=== PATIENT | female | born 1960 | race Caucasian/White ===

== ENCOUNTER → 2018-03-29 08:17 | Outpatient (CLI) | payer OTHER, SELFPAY ==
[2018-03-29 09:15] LABS: Add Manual Diff / Slide Review NO; Basophils Percent Auto 0.6 % (0-2); Eosinophils Percent Auto 1.9 % (2-4); Hematocrit 40.3 % (36-46); Hemoglobin 13.4 g/dL (12.0-16.0); Lymphocytes Percent Auto 28.1 % (25-40); Mean Corpuscular HGB Conc 33.4 % (30-36); Mean Corpuscular Hemoglobin 30.9 PG (26-34); Mean Corpuscular Volume 92.6 fL (80-100); Monocytes Percent Auto 5.2 % (3-14); Neutrophils Absolute Auto 3800 /uL (3000-5900); Neutrophils Percent Auto 64.2 % (50-75); Platelet Count 193 X10^3/uL (150-400); Red Blood Cell Count 4.35 X10^6/uL (4.0-5.2); Red Cell Distribution Width 12.7 % (11.6-14.8); White Blood Cell Count 5.9 X10^3/uL (4.5-11.0)
[2018-03-29 09:51] LABS: Alanine Aminotransferase 69 IU/L (9-52); Albumin 4.8 g/dL (3.5-5.0); Albumin Globulin Ratio 1.5 (1.0-2.8); Alkaline Phosphatase 73 U/L (38-126); Aspartate Aminotransferase 57 IU/L (14-36); BUN Creatinine Ratio 33.8 (6-22); Bilirubin Total 0.4 mg/dL (0.2-1.3); Blood Urea Nitrogen 27 mg/dL (7-17); Calcium 9.5 mg/dL (8.4-10.2); Carbon Dioxide 26 mmol/L (22-32); Chloride 107 mmol/L (98-107); Cholesterol 239 mg/dL (140-199); Estimated Glomerular Filt Rate > 60.0 mL/min (>60); Globulin 3.2 g/dL (1.7-4.1); Glucose 94 mg/dL (70-100); HDL Cholesterol 75 mg/dL (40-60); HEMOLYSIS < 15 (0-50); LDL Cholesterol Calculated 139 mg/dL (<100); Potassium 4.2 mmol/L (3.4-5.1); Sodium 145 mmol/L (137-145); Triglycerides 123 mg/dL (35-150)
[2018-03-29 10:14] LABS: TSH w/ Reflex to FT4 0.31 uIU/mL (0.47-4.68)
[2018-03-29 10:42] LABS: Free T4, Direct Thyroxine 1.16 ng/dL (0.78-2.19)
== END ==
PROVIDERS: Visit Provider Registered Nurse
DX: E03.9 Hypothyroidism, unspecified (principal); Z00.00 Encounter for general adult medical examination without abnormal findings
CPT/HCPCS: 36415; 80053; 80061; 84439; 84443; 85025

== ENCOUNTER → 2018-05-31 08:07 | Outpatient (CLI) | payer OTHER, SELFPAY ==
[2018-05-31 10:31] LABS: Alanine Aminotransferase 35 IU/L (9-52); Aspartate Aminotransferase 33 IU/L (14-36); Cholesterol 250 mg/dL (140-199); HDL Cholesterol 52 mg/dL (40-60); LDL Cholesterol Calculated 120 mg/dL (<100); Triglycerides 390 mg/dL (35-150)
[2018-05-31 11:08] LABS: Thyroid Stimulating Hormone 0.71 uIU/mL (0.47-4.68)
== END ==
PROVIDERS: Visit Provider Registered Nurse
DX: E78.5 Hyperlipidemia, unspecified (principal); R74.8 Abnormal levels of other serum enzymes; E03.9 Hypothyroidism, unspecified
CPT/HCPCS: 36415; 80061; 84443; 84450; 84460

== ENCOUNTER → 2019-01-31 11:48 | Outpatient (CLI) | payer OTHER, SELFPAY ==
--- NOTE | 2019-01-31 11:51 | DI.MRI.S_ITS ---
PROCEDURE: MR HEAD/BRAIN WO/W CON INDICATIONS: Unilateral facial pain, migraine TECHNIQUE: Noncontrast sagittal T1 spin echo, axial T2 fast spin echo, axial FLAIR, axial gradient echo, axial diffusion and ADC through the brain. Axial/sagittal/coronal 3-D CISS, thin-slice axial T1 spin echo with fat saturation through the skull base. After the administration of contrast, axial and coronal thin-slice T1 spin echo with fat saturation through the skull base, axial T1 spin echo with fat saturation through the brain. COMPARISON: None. FINDINGS: Image quality: Excellent. Trigeminal nerves: Trigeminal nerves and trigeminal nerve divisions follow normal course and abnormal contour. No abnormal mass or abnormal postcontrast enhancement is identified along the course of the trigeminal nerves are trigeminal nerve divisions. Cavernous sinus enhances normally. CSF spaces: Ventricles are normal in size and shape. No extra-axial fluid collections. Basal cisterns are patent. Brain: No intracranial bleeds or mass effects. No abnormal intracranial enhancement. Diffusion weighted images show no acute ischemic insults. Duong-white matter interface is intact. Brainstem is normal. Normal intravascular flow voids are present. Skull and face: Calvarial marrow signal is normal. Orbits appear normal. Sinuses: Sinuses and mastoids appear clear. IMPRESSION: 1. No acute intracranial disease process 2. No abnormal intracranial mass or suspicious postcontrast enhancement. 3. No abnormal internal signal. Dictated by: Uma Guzman MD, PhD on 01/31/2019 at 14:02 Approved by: Uma uGzman MD, PhD on 01/31/2019 at 14:04
--- NOTE | 2019-01-31 12:11 | DI.MRI.S_ITS ---
PROCEDURE: MR CERVICAL SPINE WO/W CON INDICATIONS: Chronic neck pain TECHNIQUE: Noncontrast sagittal T1 spin echo and T2 fast spin echo, sagittal STIR, foraminal oblique sagittal T2 fast spin echo, axial gradient echo or T2 fast spin echo through the cervical spine. After the administration of contrast, axial and sagittal T1 spin echo with fat saturation through the cervical spine. COMPARISON: None. FINDINGS: Image quality: Excellent. Alignment and curvature: There is normal bony alignment. Marrow: Marrow is normal in overall signal, without suspicious enhancement. Spinal cord: Visualized spinal cord has normal size and signal. No cerebellar tonsillar herniation. No abnormal intramedullary enhancement. Paraspinous soft tissues: No paravertebral masses or suspicious enhancement. C2-3: Loss of disc signal. Mild, diffuse disc bulge. No central stenosis. No neural foraminal narrowing. No neural impingement. C3-4: Loss of disc signal. Mild, diffuse disc bulge. Mild narrowing of the central canal. No neural foraminal narrowing. No neural impingement. C4-5: Loss of disc signal. Mild, diffuse disc bulge. Mild narrowing of the central canal. Mild right uncovertebral joint hypertrophy. Mild right neural foraminal narrowing. No neural impingement. C5-6: Loss of disc signal. Mild, diffuse disc bulge. Mild narrowing of the central canal. Moderate right uncovertebral joint hypertrophy. Moderate right neural foraminal narrowing. No neural impingement. C6-7: Loss of disc signal and height. Moderate, diffuse disc bulge. Moderate narrowing of the central canal. Mild right uncovertebral joint hypertrophy. Mild right neural foraminal narrowing. No neural impingement. C7-T1: Loss of disc signal. Mild, diffuse disc bulge. No central stenosis. No neural foraminal narrowing. No neural impingement. IMPRESSION: 1. Multilevel degenerative disc disease. 2. Multilevel uncovertebral arthropathy. 3. Moderate C6-C7 central canal narrowing. Mild C3-C4 and C4-C5 central canal narrowing. 4. Moderate right C5-C6 neural foraminal narrowing. Mild right C4-C5 and C6-C7 neural foraminal narrowing. 5. No neural impingement. 6. No suspicious postcontrast enhancement. Dictated by: Uma Guzman MD, PhD on 01/31/2019 at 13:35 Approved by: Uma Guzman MD, PhD on 01/31/2019 at 13:48
== END ==
PROVIDERS: PCP Registered Nurse; Visit Provider Registered Nurse
DX: M50.31 Other cervical disc degeneration, high cervical region (principal); M50.321 Other cervical disc degeneration at C4-C5 level; M50.322 Other cervical disc degeneration at C5-C6 level; M50.323 Other cervical disc degeneration at C6-C7 level; M48.02 Spinal stenosis, cervical region; M47.812 Spondylosis without myelopathy or radiculopathy, cervical region; G43.909 Migraine, unspecified, not intractable, without status migrainosus; G89.29 Other chronic pain
CPT/HCPCS: 70553; 72156; A9579

== ENCOUNTER → 2019-05-06 11:12 | Outpatient (CLI) | payer OTHER, SELFPAY | PROVIDERS: PCP Registered Nurse | DX: Z23 Encounter for immunization (principal) | CPT/HCPCS: 90471; 90686 ==

== ENCOUNTER 2019-05-14 19:47 | Emergency (ER) | payer OTHER, SELFPAY ==
[2019-05-14 19:50] VITALS: BP 144/89; PULSE 80; RESP 17; TEMP 36.6; O2SAT 98; BMI 30.5
--- NOTE | 2019-05-14 20:04 | DI.CT.S_ITS ---
PROCEDURE: CT KIDNEY URETER BLADDER (KUB) INDICATIONS: L flank pain TECHNIQUE: Noncontrast 5 mm thick sections acquired from the diaphragms to the symphysis. 5 mm thick coronal and sagittal reformats were then performed. For radiation dose reduction, the following was used: automated exposure control, adjustment of mA and/or kV according to patient size. COMPARISON: [facility], CT, KIDNEY/ URETER/BLADDER, 03/17/2009, 7:46. [facility], CT, KIDNEY/ URETER/BLADDER, 02/22/2008, 12:16. FINDINGS: Image quality: Excellent. Lung bases: Lung bases are clear. Heart size is normal. Urinary system: Both kidneys are normal in size. There are bilateral small nonobstructive kidney stones ranging in size from 1 mm to 3 mm. There is, however, a new finding of left-sided [id number] hydronephrosis and mild left hydroureter but without perinephric fat stranding. Both ureters appear noninflamed throughout their expected courses but the far distal left ureter there is a 3 mm calculus impacted at the ureteropelvic junction. Bladder wall thickness is normal; no calcified bladder stones. Other solid organs: Liver is normal in size. Gallbladder appears previously resected. Pancreas is normal in contours. Spleen is normal in size. No adrenal nodules. Peritoneum and bowel: Unenhanced bowel loops demonstrate normal wall thickness and caliber. No free fluid or air. Nodes and vessels: No retroperitoneal or mesenteric adenopathy by size criteria. Aorta and inferior vena cava are normal in caliber. Abdominal wall: No ventral hernias. Pelvis: No free pelvic fluid. No inguinal hernias or adenopathy. Bones: No suspicious bony lesions. No vertebral body compression fractures. IMPRESSION: Multiple small but nonobstructive renal collecting system calculi are present but there is a new finding of mild to moderate left-sided hydronephrosis and mild left hydroureter to a 3 mm impacted far distal left ureteral stone at the ureterovesicular junction. Dictated by: Ulises Alvarez M.D. on 05/14/2019 at 20:37 Approved by: Ulises Alvarez M.D. on 05/14/2019 at 20:39
[2019-05-14] MEDS: SODIUM CHLORIDE 0.9% 1,000 ML 1000 ML IV (20:19)
[2019-05-14] MEDS: KETOROLAC 60 MG/2 ML VIAL 15 MG IV (20:19)
[2019-05-14] MEDS: ONDANSETRON 4 MG/2 ML INJ IV (20:19)
[2019-05-14 20:21] LABS: Add Manual Diff / Slide Review NO; Basophils Absolute Auto 0 /uL (0-100); Basophils Percent Auto 0.5 % (0-2); Eosinophils Absolute Auto 300 /uL (0-450); Eosinophils Percent Auto 3.3 % (2-4); Hematocrit 38.8 % (36-46); Hemoglobin 13.3 g/dL (12.0-16.0); Lymphocytes Absolute Auto 2400 /uL (1100-4500); Lymphocytes Percent Auto 31.3 % (25-40); Mean Corpuscular HGB Conc 34.4 % (30-36); Mean Corpuscular Hemoglobin 31.5 PG (26-34); Mean Corpuscular Volume 91.6 fL (80-100); Monocytes Absolute Auto 400 /uL (0-900); Monocytes Percent Auto 5.7 % (3-14); Neutrophils Absolute Auto 4600 /uL (1500-7000); Neutrophils Percent Auto 59.2 % (50-75); Platelet Count 219 X10^3/uL (150-400); Red Blood Cell Count 4.23 X10^6/uL (4.0-5.2); Red Cell Distribution Width 13.3 % (11.6-14.8); White Blood Cell Count 7.7 X10^3/uL (4.5-11.0)
[2019-05-14 20:25] LABS: BUN Creatinine Ratio 31.3 (6-22); Blood Urea Nitrogen 25 mg/dL (7-17); Calcium 10.3 mg/dL (8.4-10.2); Carbon Dioxide 22 mmol/L (22-32); Chloride 108 mmol/L (98-107); Estimated Glomerular Filt Rate > 60.0 mL/min (>60); Glucose 103 mg/dL (70-100); HEMOLYSIS < 15 (0-50); Potassium 3.6 mmol/L (3.4-5.1); Sodium 140 mmol/L (137-145)
--- NOTE | 2019-05-14 20:29 | ED_ITS ---
HPI - Female Genitourinary General Chief complaint: Urogenital-Female Stated complaint: severe back pain Time Seen by Provider: 05/14/19 20:03 Source: patient Mode of arrival: Wheelchair Limitations: no limitations History of Present Illness HPI Narrative: 58-year-old female former smoker with history of migraines p resents with significant other and a chief complaint of a sudden onset left flank pain with radiation into her groin. She denies provocation or palliation. She admits to some urinary discomfort but little tells. She has had no fever or chills. She denies any chest pain or shortness of breath. She denies any history of the same. She has a strong family history of kidney stones MD Complaint: other Onset (ago): hour(s) Location: LLQ Female Urogenital Radiation: L Flank Severity: severe Severity scale (1-10): 10 Quality: Sharp and Stabbing Duration: intermittent Relieving factors: none Exacerbating factors: none Urinary symptoms: Difficulty Urinating Patient : No Associated symptoms: nausea/vomiting Related Data Home Medications Medication Instructions Recorded Confirmed Fish oil PO 11/07/18 01/30/19 antiarthritic combination no.2 900 mg PO tab 11/07/18 01/30/19 mg tablet ascorbic acid (vitamin C) 500 mg mg PO cap 11/07/18 01/30/19 capsule calcium carbonate 500 mg calcium 500 mg PO TID tab 11/07/18 01/30/19 (1,250 mg) tablet turmeric root extract 500 mg 1,000 mg PO DAILY 11/07/18 01/30/19 capsule Previous Rx's Medication Instructions Recorded clonazepam 0.5 mg tablet 0.5 mg PO TID PRN #60 tab 03/08/18 estradiol 1 gram VAG QWEEK #42.5 gram 04/10/18 fluoxetine 40 mg capsule 40 mg PO DAILY #90 cap 05/23/18 topiramate 100 mg tablet 200 mg PO Q DAY #60 tab 08/03/18 zolpidem 10 mg tablet 10 mg PO BEDTIME PRN #30 tab 08/14/18 levothyroxine 88 mcg tablet 88 mcg PO DAILY #30 tab 10/02/18 estradiol 0.5 mg tablet 0.25 mg PO QDAY #90 tab 01/03/19 nadolol 40 mg tablet 40 mg PO Q DAY #90 tab 01/03/19 phentermine 37.5 mg tablet 37.5 mg PO DAILY #30 tab 01/24/19 ondansetron 4 mg disintegrating 4 mg PO Q6-8H PRN #20 tab 01/30/19 tablet hydrocodone-acetaminophen 1 tab PO Q4-6H PRN #10 tab 05/14/19 ketorolac 10 mg PO Q6H PRN #14 tab 05/14/19 ondansetron 4 mg PO TID-QID PRN #10 tab 05/14/19 tamsulosin [Flomax] 0.4 mg PO DAILY #10 cap 05/14/19 Allergies Allergy/AdvReac Type Severity Reaction Status Date / Time No Known Drug Allergies Allergy Verified 05/14/19 19:57 Review of Systems Constitutional Constitutional: Denies chills, Denies fatigue, Denies fever(s), Denies frequent falls, Denies lethargy and Denies weakness Eyes Eyes: Denies change in vision, Denies eye discharge, Denies irritation and Denies loss of vision ENT Ears, Nose, Mouth, and Throat: Denies change in voice, Denies dizziness, Denies neck pain, Denies sore throat and Denies throat swelling Cardiovascular Cardiovascular: Denies chest pain, Denies irregular heart rhythm, Denies lightheadedness, Denies palpitations, Denies dyspnea, Denies dyspnea on exertion and Denies orthopnea Respiratory Respiratory: Denies cough, Denies dyspnea, Denies dyspnea on exertion and Denies wheezing Gastrointestinal Gastrointestinal: Denies abdominal pain, Denies change in bowel habits, Denies diarrhea, Denies nausea and Denies vomiting Genitourinary Genitourinary: Denies hematuria, Reports flank pain, Denies urinary incontinence and Denies urinary urgency Musculoskeletal Musculoskeletal: Denies back pain, Denies muscle weakness, Denies neck pain, Denies numbness and Denies tingling Integumentary/Breasts Skin/Breast: Denies pruritus, Denies erythema, Denies rash and Denies wounds Neurologic Neurologic: Denies behavioral changes, Denies confusion, Denies dizziness, Denies frequent falls, Denies loss of vision, Denies numbness, Denies tingling and Denies weakness Psychiatric Psychiatric: Denies anxiety, Denies behavioral changes, Denies confusion, Denies depression, Denies homicidal ideation and Denies suicidal ideation Endocrine Endocrine: Denies fatigue, Denies flushing and Denies palpitations Hematologic/Lymphatic Hematologic/Lymphatic: Denies easy bruising Allergic/Immunologic Allergic/Immunologic: Denies urticaria, Denies throat swelling and Denies wheezing Patient History Medical History Breathing-related sleep disorder (Chronic) Chronic headaches (Chronic) Excessive daytime sleepiness (Chronic) Insomnia (Chronic) Snoring (Chronic) Surgical History History of bilateral salpingo-oophorectomy (BSO) (Resolved 1995) Status post hysterectomy (Resolved) Family History Brother Melanoma Father Hypertension Mother Melanoma Stroke Family/Other Breast cancer Other Colorectal cancer alcohol intake frequency: holidays/special occasions only Substance Use Type: does not use Exam Narrative Exam Narrative: GENERAL: [58] year old patient appears stated age. Well-no urished, well-developed patient, in significant distress, clearly very uncomfortable, laying on her side, rubbing her flank and holding an emesis bag HEAD: Atraumatic. Normocephalic. EYES: Pupils equal round and reactive. Extraocular motions intact. No scleral icterus. No injection or drainage. ENT: Nose without bleeding, purulent drainage. Throat without erythema, tonsillar hypertrophy or exudate. Airway patent. NECK: Trachea midline. Non tender CARDIOVASCULAR: Regular rate and rhythm without murmurs, gallops, or rubs. RESPIRATORY: Clear to auscultation. Breath sounds equal bilaterally. No wheezes, rales, or rhonchi. GASTROINTESTINAL: Abdomen soft, non-tender, nondistended. EXTREMITIES: No edema or joint tenderness. BACK: Nontender without deformity or crepitance. No flank tenderness. NEURO: AOx3. SKIN: No rash or erythema of visible areas Initial Vital Signs Initial Vital Signs: Vital Signs Temperature 97.8 F 05/14/19 19:50 Pulse Rate 80 05/14/19 19:50 Respiratory Rate 17 05/14/19 19:50 Blood Pressure 144/89 H 05/14/19 19:50 Pulse Oximetry 98 05/14/19 19:50 Course Orders Ordered: ED Orders 05/14/19 20:00 Basic Metabolic Panel Stat Complete Blood Count AUTO DIFF Stat 05/14/19 20:04 CT kidney ureter bladder (KUB) Stat Discontinued Medications Hydrocodone Bitart/Acetaminophen (Vicodin Prepack) 1 bottle MISC SEEINSTR ONE Stop: 05/14/19 21:15 Last Admin: 05/14/19 21:29 Dose: 1 bottle Documented by: RASHAD Sodium Chloride (Normal Saline 0.9%) 1,000 mls @ 1,000 mls/hr IV BOLUS ONE Stop: 05/14/19 21:03 Last Infusion: 05/14/19 21:46 Dose: 0 mls/hr Documented by: Admin: 05/14/19 20:19 Dose: 1,000 mls/hr Documented by: RASHAD Ketorolac Tromethamine (Toradol) 15 mg IV NOW ONE Stop: 05/14/19 20:05 Last Admin: 05/14/19 20:19 Dose: 15 mg Documented by: RASHAD Ondansetron HCl (Zofran) 4 mg IV Q4HR PRN PRN Reason: Nausea And Vomiting Last Admin: 05/14/19 20:19 Dose: 4 mg Documented by: RASHAD Ondansetron HCl (Zofran Odt Prepack) 1 bottle MISC SEEINSTR ONE Stop: 05/14/19 21:15 Last Admin: 05/14/19 21:29 Dose: 1 bottle Documented by: RASHAD Vital Signs Vital signs: Vital Signs - 8 hr 05/14/19 19:50 05/14/19 21:27 Temperature 97.8 F Pulse Rate 80 72 Respiratory Rate 17 14 Blood Pressure 144/89 H Blood Pressure [Left Arm] 119/60 Pulse Oximetry 98 99 MDM - Female Genitourinary Lab Data Result diagrams: 05/14/19 20:00 05/14/19 20:00 Labs: Lab Results 05/14/19 05/14/19 Range/Units 20:00 20:00 WBC 7.7 (4.5-11.0) X10^3/uL RBC 4.23 (4.0-5.2) X10^6/uL Hgb 13.3 (12.0-16.0) g/dL Hct 38.8 (36-46) % MCV 91.6 (80-100) fL MCH 31.5 (26-34) PG MCHC 34.4 (30-36) % RDW 13.3 (11.6-14.8) % Plt Count 219 (150-400) X10^3/uL Neut % (Auto) 59.2 (50-75) % Lymph % (Auto) 31.3 (25-40) % [place] % (Auto) 5.7 (3-14) % Eos % (Auto) 3.3 (2-4) % Baso % (Auto) 0.5 (0-2) % Neut # (Auto) 4600 (5165-1066) /uL Lymph # (Auto) 2400 (4375-5030) /uL [place] # (Auto) 400 (0-900) /uL Eos # (Auto) 300 (0-450) /uL Baso # (Auto) 0 (0-100) /uL Sodium 140 (137-145) mmol/L Potassium 3.6 (3.4-5.1) mmol/L Chloride 108 H (98-107) mmol/L Carbon Dioxide 22 (22-32) mmol/L BUN 25 H (7-17) mg/dL Creatinine 0.80 (0.52-1.04) mg/dL Estimated GFR > 60.0 (>60) mL/min BUN/Creatinine Ratio 31.3 H (6-22) Glucose 103 H (70-100) mg/dL Calcium 10.3 H (8.4-10.2) mg/dL Imaging Data CT scan - abdomen: Radiologist's impression: [place] [address] CT Scan Report Signed Patient: Tammi Cheema R#: [id number] : 2Acct:[id number] Age/Sex: 58 / FDate of Service: 05/14/19 Loc: ED Accession Number: [id number] Procedure: CT kidney ureter bladder (KUB) Ordering Provider: Shadi Han D.O. PROCEDURE: CT KIDNEY URETER BLADDER (KUB) INDICATIONS: L flank pain TECHNIQUE: Noncontrast 5 mm thick sections acquired from the diaphragms to the symphysis. 5 mm thick coronal and sagittal reformats were then performed. For radiation dose reduction, the following was used: automated exposure control, adjustment of mA and/or kV according to patient size. COMPARISON: [facility], CT, KIDNEY/ URETER/BLADDER, 03/17/2009, 7:46. [facility], CT, KIDNEY/ URETER/BLADDER, 02/22/2008, 12:16. FINDINGS: Image quality: Excellent. Lung bases: Lung bases are clear. Heart size is normal. Urinary system: Both kidneys are normal in size. There are bilateral small nonobstructive kidney stones ranging in size from 1 mm to 3 mm. There is, however, a new finding of left-sided [id number] hydronephrosis and mild left hydroureter but without perinephric fat stranding. Both ureters appear noninflamed throughout their expected courses but the far distal left ureter there is a 3 mm calculus imp acted at the ureteropelvic junction. Bladder wall thickness is normal; no calcified bladder stones. Other solid organs: Liver is normal in size. Gallbladder appears previously resected. Pancreas is normal in contours. Spleen is normal in size. No adrenal nodules. Peritoneum and bowel: Unenhanced bowel loops demonstrate normal wall thickness and caliber. No free fluid or air. Nodes and vessels: No retroperitoneal or mesenteric adenopathy by size criteria. Aorta and inferior vena cava are normal in caliber. Abdominal wall: No ventral hernias. Pelvis: No free pelvic fluid. No inguinal hernias or adenopathy. Bones: No suspicious bony lesions. No vertebral body compression fractures. IMPRESSION: Multiple small but nonobstructive renal collecting system calculi are present but there is a new finding of mild to moderate left-sided hydronephrosis and mild left hydroureter to a 3 mm impacted far distal left ureteral stone at the ureterovesicular junction. Dictated by: Ulises Alvarez M.D. on 05/14/2019 at 20:37 Approved by: Ulises Alvarez M.D. on 05/14/2019 at 20:39 Discharge Plan Departure Patient Disposition: Home Clinical Impression: Ureterolithiasis Discharge Date/Time: 05/14/19 21:47 Instructions: DI for Kidney Stones Activity Restrictions/Additional Instructions: *You have been diagnosed with [ Left sided kidney stone ] *What to do: *Take medications as directed *Follow up with your primary care provider in 2-3 days, call for an appointment. Let them know you were seen in the Emergency Department and that we ask that you be seen in follow up *Return to ER if you should have any new, worsening or concerning symptoms, such as [fever, shaking chills, persistent vomiting or other bothersome symptoms ] Prescriptions: New tamsulosin [Flomax] 0.4 mg capsule 0.4 mg PO DAILY Qty: 10 RF: 0 hydrocodone-acetaminophen 5-325 mg tablet 1 tab PO Q4-6H PRN (Reason: pain) Qty: 10 RF: 0 ketorolac 10 mg tablet 10 mg PO Q6H PRN (Reason: pain) Qty: 14 RF: 0 ondansetron 4 mg tablet,disintegrating 4 mg PO TID-QID PRN (Reason: nausea and vomiting) Qty: 10 RF: 0 No Action topiramate [Topamax] 100 mg tablet 200 mg PO Q DAY Qty: 60 RF: 11 levothyroxine 88 mcg tablet 88 mcg PO DAILY Qty: 30 RF: 3 nadolol 40 mg tablet 40 mg PO Q DAY Qty: 90 RF: 3 estradiol 0.5 mg tablet 0.25 mg PO QDAY Qty: 90 RF: 3 phentermine 37.5 mg tablet 37.5 mg PO DAILY Qty: 30 RF: 3 fluoxetine 40 mg capsule 40 mg PO DAILY Qty: 90 RF: 3 zolpidem 10 mg tablet 10 mg PO BEDTIME PRN (Reason: insomnia) Qty: 30 RF: 0 clonazepam 0.5 mg tablet 0.5 mg PO TID PRN (Reason: anxiety) Qty: 60 RF: 1 estradiol [Estrace] 0.01 % (0.1 mg/gram) cream 1 gram VAG QWEEK Qty: 42.5 RF: 3 Fish oil PO RF: 0 calcium carbonate [Calcium 500] 500 mg calcium (1,250 mg) tablet 500 mg PO TID RF: 0 glucosamine-chondroitin 900 mg tablet PO RF: 0 ascorbic acid (vitamin C) 500 mg capsule PO RF: 0 turmeric root extract 500 mg capsule 1,000 mg PO DAILY RF: 0 ondansetron 4 mg tablet,disintegrating 4 mg PO Q6-8H PRN (Reason: nausea and vomiting) Qty: 20 RF: 0 Referrals: Anne Marie Crow MD [Non-Staff] - Clau Sinha ARNP [Primary Care Provider] -
[2019-05-14 21:27] VITALS: BP 119/60; PULSE 72; RESP 14; O2SAT 99
[2019-05-14] MEDS: ONDANSETRON 4 MG ODT PREPACK 1 BOTTLE MISC (21:29)
[2019-05-14] MEDS: HYDROCODONE/ACET 5/325 PREPACK 1 BOTTLE MISC (21:29)
== END 2019-05-14 21:47 | disposition home or self-care (01) ==
PROVIDERS: Nurse Practitioner Family; Emergency Provider Emergency Medicine; Family Provider Registered Nurse; PCP Registered Nurse
DX: N20.2 Calculus of kidney with calculus of ureter (principal)
CPT/HCPCS: 36415; 74176; 80048; 82365; 85025; 96374; 96375; 99283; 99284; J1885; J2405

== ENCOUNTER → 2019-07-14 12:35 | Outpatient (CLI) | payer OTHER, SELFPAY ==
[2019-07-14 13:41] LABS: Influenza A - CEPHEID Flu A NEGATIVE (NEGATIVE); Influenza B - CEPHEID Flu B NEGATIVE (NEGATIVE)
== END ==
PROVIDERS: Family Provider Registered Nurse; PCP Registered Nurse; Visit Provider Physician Assistant
DX: J02.9 Acute pharyngitis, unspecified (principal); R50.9 Fever, unspecified; R52 Pain, unspecified
CPT/HCPCS: 87070; 87502

== ENCOUNTER 2019-07-14 13:08 | Emergency (ER) | payer OTHER, SELFPAY ==
[2019-07-14 13:25] VITALS: BP 129/77; PULSE 86; RESP 15; TEMP 37.2; O2SAT 99; BMI 31.6
[2019-07-14] MEDS: ONDANSETRON 4 MG ODT SL (14:33)
[2019-07-14] MEDS: DEXAMETHASONE 10 MG/ML VIAL PO (14:33)
[2019-07-14] MEDS: KETOROLAC 60 MG/2 ML VIAL 30 MG IM (14:33)
[2019-07-14 15:09] LABS: Monotest Negative (Negative)
--- NOTE | 2019-07-14 15:53 | ED.URI ---
HPI - URI/Sore Throat <RAMILA Boggs - Last Filed: 07/14/19 19:59> General Chief Complaint: Upper Respiratory Symptoms Stated Complaint: sore throat ear left ear hurting and headach Time Seen by Provider: 07/14/19 14:04 Source: patient Mode of arrival: Ambulatory Limitations: no limitations History of Present Illness HPI Narrative: This is a 58-year-old female, former smoker, who presents to ED with significant other with chief complain of sore throat with swelling, ear pain, headache, cervical adenopathy, chills and sweats for 2 days. She reports sore throat started 3 days ago when she woke up and it has been progressively worse and today the pain is severe and rates out of 50/10. Patient states she attempted to swallow pills and felt like she was choking and reports difficulty swallowing due to discomfort. However, patient states she has been hydrating well with water without difficulty. Patient also reports some diarrhea. Patient was seen at walk-in clinic this morning and had negative flu and POC strep throat swabs. Throat culture is pending at this time. Patient denies known exposure to ill contact. Related Data Home Medications Medication Instructions Recorded Confirmed Fish oil PO 11/07/18 07/14/19 antiarthritic combination no.2 900 mg PO tab 11/07/18 07/14/19 mg tablet ascorbic acid (vitamin C) 500 mg mg PO cap 11/07/18 07/14/19 capsule calcium carbonate 500 mg calcium 500 mg PO TID tab 11/07/18 07/14/19 (1,250 mg) tablet turmeric root extract 500 mg 1,000 mg PO DAILY 11/07/18 07/14/19 capsule Previous Rx's Medication Instructions Recorded clonazepam 0.5 mg tablet 0.5 mg PO TID PRN #60 tab 03/08/18 estradiol 1 gram VAG QWEEK #42.5 gram 04/10/18 topiramate 100 mg tablet 200 mg PO Q DAY #60 tab 08/03/18 zolpidem 10 mg tablet 10 mg PO BEDTIME PRN #30 tab 08/14/18 levothyroxine 88 mcg tablet 88 mcg PO DAILY #30 tab 10/02/18 estradiol 0.5 mg tablet 0.25 mg PO QDAY #90 tab 01/03/19 nadolol 40 mg tablet 40 mg PO Q DAY #90 tab 01/03/19 phentermine 37.5 mg tablet 37.5 mg PO DAILY #30 tab 01/24/19 ondansetron 4 mg disintegrating 4 mg PO TID-QID PRN #10 tab 05/17/19 tablet tamsulosin 0.4 mg capsule 0.4 mg PO DAILY #10 cap 05/17/19 fluoxetine 40 mg capsule 40 mg PO DAILY #90 cap 05/28/19 hydrocodone 5 mg-acetaminophen 325 1 tab PO Q4-6H PRN #10 tab 06/05/19 mg tablet ketorolac 10 mg tablet 10 mg PO Q6H PRN #14 tab 06/05/19 tramadol 50 mg PO BID PRN #7 tab 07/14/19 Allergies Allergy/AdvReac Type Severity Reaction Status Date / Time No Known Drug Allergies Allergy Verified 07/14/19 13:25 Review of Systems <RAMILA Boggs - Last Filed: 07/14/19 19:59> Review of Systems Narrative: General: Reports fever, chills, fatigue, malaise, sweats. HEENT: Denies sinus pain, (+) ear pain, (+) sore throat, (+) difficulty swallowing, dizziness. Respiratory: Reports dyspnea, (-) cough, wheezing, hemoptysis, sputum. Cardiovascular: Denies chest pain, palpitations, orthopnea, edema. Gastrointestinal: Denies nausea, vomiting, abdominal pain, (+) diarrhea, constipation, melena. : Denies dysuria, frequency, incontinence, hematuria, urinary retention. Musculoskeletal: Denies weakness, joint pain or bony pain. Skin: Denies rash, skin lesions, or other. Neurologic: Denies weakness, headache, numbness, change in speech, confusion, seizures, incoordination. Psychiatric: No concerning psychosocial issues. 12-point review of systems is negative except for those stated above. Patient History <RAMILA Boggs - Last Filed: 07/14/19 19:59> Medical History Breathing-related sleep disorder (Chronic) Chronic headaches (Chronic) Excessive daytime sleepiness (Chronic) Insomnia (Chronic) Snoring (Chronic) Surgical History History of bilateral salpingo-oophorectomy (BSO) (Resolved 1995) Status post hysterectomy (Resolved) Family History Brother Melanoma Father Hypertension Mother Melanoma Stroke Family/Other Breast cancer Other Colorectal cancer Social History Smoking Status: Former smoker alcohol intake: never substance use type: does not use Smoking Status: Former smoker alcohol intake frequency: holidays/special occasions only Substance Use Type: does not use Exam <RAMILA Boggs - Last Filed: 07/14/19 19:59> Narrative Exam Narrative: GEN: Alert, oriented x 3, well nourished and in moderate distress. Head: Normal cephalic, atraumatic. No scalp or temporal tenderness, palpable mass or rash. EYES: Pupils are equal, round, and reactive to light and accommodation. Extraocular muscles are intact bilaterally. There is no subconjunctival hemorrhage, exudate and sclera non-icteric. ENT: Bilateral auditory canals and tympanic membranes clear. Hearing grossly intact. Nose without bleeding, purulent discharge or deviation but congested and erythematous turbinates. Facial sinuses nontender to palpate. Mucous membrane moist, no mucosal lesion. Throat with erythema but no tonsillar hypertrophy or exudate. Uvula in midline, airway patent. Copious amount of foamy postnasal drips noted. No muffling voice. Neck: Trachea in midline. No JVD, tender to palpate anterior cervical lymphadenopathy. No masses or thyroid megaly. Supple, non-tender and no meningeal signs. CARDIAC: Normal regular rate and rhythm without murmurs, gallops, or rubs. No chest wall tenderness. No peripheral edema, cyanosis or pallor. Capillary refill is less than 2 seconds. RESPIRATORY: Lungs are clear to auscultate bilaterally. No cough, wheezes, rales, or rhonchi. No stridor, respiratory distress, increase work of breathing, or accessary muscle used. ABD: Abdomen soft, nontender and non-distended. No guarding or rebound tenderness to palpate. Bowel sounds are normal in all 4 quadrants. There is no palpable masses or organomegaly. EXT: Full painless ROM of all extremities with no loss of sensation, strength, effusion or edema. SKIN: Warm, dry, normal color for patient. No erythema, lesions or rash over visible areas. BACK: Nontender without deformity or crepitance. No flank tenderness. NEUROLOGICAL: Alert and oriented to place, time and person. Sensation and motor function intact bilaterally. No facial droops, dysphasia. PSYCHIATRIC: Good judgement and reason, without hallucinations, abnormal affect or abnormal behaviors during the examination. Initial Vital Signs Initial Vital Signs: Vital Signs Temperature 98.9 F 07/14/19 13:25 Pulse Rate 86 07/14/19 13:25 Respiratory Rate 15 07/14/19 13:25 Blood Pressure 129/77 07/14/19 13:25 Pulse Oximetry 99 07/14/19 13:25 <Rachel Hernandez DO - Last Filed: 07/15/19 08:21> Initial Vital Signs Initial Vital Signs: Vital Signs Temperature 98.9 F 07/14/19 13:25 Pulse Rate 86 07/14/19 13:25 Respiratory Rate 15 07/14/19 13:25 Blood Pressure 129/77 07/14/19 13:25 Pulse Oximetry 99 07/14/19 13:25 Scores <RAMILA Boggs - Last Filed: 07/14/19 19:59> ABCD2 Citation: Centor score 1 Course <RAMILA Boggs - Last Filed: 07/14/19 19:59> Orders Ordered: Discontinued Medications Dexamethasone (Decadron) 10 mg PO NOW ONE Stop: 07/14/19 14:23 Last Admin: 07/14/19 14:33 Dose: 10 mg Documented by: ERIN Ketorolac Tromethamine (Toradol) 30 mg IM NOW ONE Stop: 07/14/19 14:23 Last Admin: 07/14/19 14:33 Dose: 30 mg Documented by: ERIN Ondansetron HCl (Zofran Odt) 4 mg SL NOW ONE Stop: 07/14/19 14:23 Last Admin: 07/14/19 14:33 Dose: 4 mg Documented by: ERIN Vital Signs Vital signs: Vital Signs - 8 hr 07/14/19 13:25 07/14/19 16:05 Temperature 98.9 F 97.2 F L Pulse Rate 86 87 Respiratory Rate 15 18 Blood Pressure 129/77 122/70 Pulse Oximetry 99 98 <Rachel Hernandez DO - Last Filed: 07/15/19 08:21> Orders Ordered: Discontinued Medications Dexamethasone (Decadron) 10 mg PO NOW ONE Stop: 07/14/19 14:23 Last Admin: 07/14/19 14:33 Dose: 10 mg Documented by: ERIN Ketorolac Tromethamine (Toradol) 30 mg IM NOW ONE Stop: 07/14/19 14:23 Last Admin: 07/14/19 14:33 Dose: 30 mg Documented by: ERIN Ondansetron HCl (Zofran Odt) 4 mg SL NOW ONE Stop: 07/14/19 14:23 Last Admin: 07/14/19 14:33 Dose: 4 mg Documented by: ERIN Vital Signs Vital signs: Vital Signs - 8 hr 07/14/19 13:25 07/14/19 16:05 Temperature 98.9 F 97.2 F L Pulse Rate 86 87 Respiratory Rate 15 18 Blood Pressure 129/77 122/70 Pulse Oximetry 99 98 MDM - URI/Sore Throat <RAMILA Boggs - Last Filed: 07/14/19 19:59> Differential Diagnosis Differential diagnosis: Likely upper respiratory infection, pharyngitis and other (Mononucleosis) Medical Records Attestation: I reviewed the patient's medical records. Lab Data Attestation: I reviewed the patient's lab results. Labs: Lab Results 07/14/19 Range/Units 14:53 Monoscreen Negative (Negative) MDM Narrative Medical decision making narrative: Negative testing for influenza and POC rapid strep throat swab at walk-in clinic today. Throat culture is pending at this time. Throat appears to be erythematous without hypertrophic tonsils or exudates. No muffled voice. Positive anterior cervical adenopathy. Subjective fever and chills. Sore throat out of proportion and Monospot was added today which showed negative result. Patient was medicated with Toradol IM injection and oral Decadron for discomfort. Patient reports minimum changes after the medications. Patient is able to hydrate with water without difficulty. Lung sounds are clear to auscultate without increased work of breathing or stridor with O2 sat 98% in room air. Patient discharged to home with small dose of tramadol for severe pain and narcotic medication precautions were discussed. Advised to take [id number] Tylenol and Motrin for baseline pain and to continue with supportive care. Return precautions were discussed including unable to manage oral secretion or to tolerate fluid intake and verbalized understanding. Patient informed that we'll receive a phone call if she needs antibiotic medication treatment from walk-in clinic. She agrees with the treatment plan. Two day work off note provided. < Kesha Hernandez, - Last Filed: 07/15/19 08:21> Lab Data Labs: Lab Results 07/14/19 Range/Units 14:53 Monoscreen Negative (Negative) Discharge Plan Departure Patient Disposition: Home Clinical Impression: Pharyngitis Qualifiers: Pharyngitis/tonsillitis etiology: unspecified etiology Qualified Code(s): J02.9 - Acute pharyngitis, unspecified Discharge Date/Time: 07/14/19 16:06 Instructions: DI for Pharyngitis/Tonsillopharyngitis -- Adult Activity Restrictions/Additional Instructions: You have been diagnosed with [pharyngitis/tonsillitis. Monospot test is negative today. Throat culture is pending at the lab at this time. You'll receive a phone call from walk-in clinic if you need a treatment with antibiotic medications.]. What to do: *Take your medications as directed. You can take [id number] Tylenol and or Motrin as needed for discomfort and fever. Tylenol up to 4000 mg in 24 hour period. Ibuprofen/Motrin 600-800 mg 3 times a day with food to decrease GI irritation. Tramadol is for severe pain. May cause drowsiness so please do not drive, drink alcohol or operate any heavy equipments. Please do not mix tramadol with [place]. Please do not take additional Ketorlac while taking Motrin/Ibuprofen. *Follow up with your primary care provider in 2-3 days, call for an appointment. Let them know you were seen in the ED and that we asked you to be seen in follow up. *Return to ED if you have any new, worsening, or concerning symptoms, such as [chest pain, breathing difficulty, unable to tolerate food fluids, signs of dehydration, high fever, unable to manage oral secretion or any acute concerns. ]. Prescriptions: New tramadol 50 mg tablet 50 mg PO BID PRN (Reason: pain) Qty: 7 RF: 0 No Action topiramate [Topamax] 100 mg tablet 200 mg PO Q DAY Qty: 60 RF: 11 levothyroxine 88 mcg tablet 88 mcg PO DAILY Qty: 30 RF: 3 nadolol 40 mg tablet 40 mg PO Q DAY Qty: 90 RF: 3 estradiol 0.5 mg tablet 0.25 mg PO QDAY Qty: 90 RF: 3 phentermine 37.5 mg tablet 37.5 mg PO DAILY Qty: 30 RF: 3 ondansetron 4 mg tablet,disintegrating 4 mg PO TID-QID PRN (Reason: nausea and vomiting) Qty: 10 RF: 0 tamsulosin [Flomax] 0.4 mg capsule 0.4 mg PO DAILY Qty: 10 RF: 0 fluoxetine 40 mg capsule 40 mg PO DAILY Qty: 90 RF: 3 hydrocodone-acetaminophen 5-325 mg tablet 1 tab PO Q4-6H PRN (Reason: pain) Qty: 10 RF: 0 ketorolac 10 mg tablet 10 mg PO Q6H PRN (Reason: pain) Qty: 14 RF: 0 zolpidem 10 mg tablet 10 mg PO BEDTIME PRN (Reason: insomnia) Qty: 30 RF: 0 clonazepam 0.5 mg tablet 0.5 mg PO TID PRN (Reason: anxiety) Qty: 60 RF: 1 estradiol [Estrace] 0.01 % (0.1 mg/gram) cream 1 gram VAG QWEEK Qty: 42.5 RF: 3 Fish oil PO RF: 0 calcium carbonate [Calcium 500] 500 mg calcium (1,250 mg) tablet 500 mg PO TID RF: 0 glucosamine-chondroitin 900 mg tablet PO RF: 0 ascorbic acid (vitamin C) 500 mg capsule PO RF: 0 turmeric root extract 500 mg capsule 1,000 mg PO DAILY RF: 0 Referrals: Clau Sinha ARNP [Primary Care Provider] - Stand Alone Forms: Work Release Note
[2019-07-14 16:05] VITALS: BP 122/70; PULSE 87; RESP 18; TEMP 36.2; O2SAT 98
== END 2019-07-14 16:06 | disposition home or self-care (01) ==
PROVIDERS: Emergency Provider Nurse Practitioner Family; Family Provider Registered Nurse; PCP Registered Nurse
DX: J02.9 Acute pharyngitis, unspecified (principal); R50.9 Fever, unspecified; R06.00 Dyspnea, unspecified; R52 Pain, unspecified
CPT/HCPCS: 86318; 87070; 87502; 96372; 99283; J1100; J1885

== ENCOUNTER 2019-11-26 08:59 | Emergency (ER) | payer OTHER, SELFPAY ==
[2019-11-26 09:21] VITALS: BP 176/90; PULSE 72; RESP 18; TEMP 36.9; O2SAT 99; BMI 31.3
[2019-11-26] MEDS: KETOROLAC 60 MG/2 ML VIAL 15 MG IV (09:40)
--- NOTE | 2019-11-26 09:40 | DI.US.S_ITS ---
PROCEDURE: US RENAL COMPLETE INDICATIONS: RIGHT FLANK PAIN. HISTORY OF KIDNEY STONES TECHNIQUE: Real-time scanning was performed of the kidneys and bladder, with image documentation. COMPARISON: None. FINDINGS: Kidneys: Kidneys are normal in size. Right kidney measures 11.9 cm long; left kidney measures 10.5 cm long. Right renal cortical thickness is 1.6 cm; left renal cortical thickness is 1.4 cm. Renal cortical echotexture is normal. Mild prominence of the right renal pelvis and proximal ureter. No suspicious solid mass lesions. Bladder: Pre-void bladder volume is 0 mL. Post-void residual is 0 mL. Pre-void images demonstrate no intraluminal masses or stones. On pre-void images, neither ureteral jets are noted with color Doppler interrogation. (Of note, ureteral jets may not be detectable in up to 25% of cases due to insufficient differences in specific gravity between ureteral and bladder urine). Miscellaneous: No free pelvic fluid. IMPRESSION: Mild right renal pelvis prominence and proximal ureteral prominence. Distal stone cannot be excluded. Additional imaging for further evaluation as indicated. Dictated by: Ekaterina Mcwilliams M.D. on 11/26/2019 at 10:59 Approved by: Ekaterina Mcwilliams M.D. on 11/26/2019 at 11:29
[2019-11-26] MEDS: SODIUM CHLORIDE 0.9% 1,000 ML 1000 ML IV (09:41)
[2019-11-26] MEDS: ONDANSETRON 4 MG/2 ML INJ IV (09:41)
--- NOTE | 2019-11-26 09:56 | ED_ITS ---
HPI - Female Genitourinary General Chief complaint: Urogenital-Female Stated complaint: bladder infection or kidney stones Time Seen by Provider: 11/26/19 08:59 Source: patient Mode of arrival: Ambulatory Limitations: no limitations History of Present Illness HPI Narrative: 58F former smoker with history of kidney stones presents with sudden onset severe with radiation into her groin. She has had frequent urinati on and dysuria as well as nausea and vomiting but denies any fever or chills. She states it feels quite similar to a prior kidney stone which was on the left about 6 months ago. She is not dizzy nor weak or lightheaded. She denies any recent injury. She has had no chest pain or shortness of breath. She denies provocation or palliation and is unable to find a position of comfort MD Complaint: dysuria and pelvic pain Onset (ago): hour(s) Location: RLQ Female Urogenital Radiation: R Flank Severity: severe Quality: Sharp and Stabbing Related Data Home Medications Medication Instructions Recorded Confirmed Fish oil PO 11/07/18 07/14/19 antiarthritic combination no.2 900 mg PO tab 11/07/18 07/14/19 mg tablet ascorbic acid (vitamin C) 500 mg mg PO cap 11/07/18 07/14/19 capsule calcium carbonate 500 mg calcium 500 mg PO TID tab 11/07/18 07/14/19 (1,250 mg) tablet turmeric root extract 500 mg 1,000 mg PO DAILY 11/07/18 07/14/19 capsule Previous Rx's Medication Instructions Recorded estradiol 1 gram VAG QWEEK #42.5 gram 04/10/18 levothyroxine 88 mcg tablet 88 mcg PO DAILY #30 tab 10/02/18 estradiol 0.5 mg tablet 0.25 mg PO QDAY #90 tab 01/03/19 phentermine 37.5 mg tablet 37.5 mg PO DAILY #30 tab 01/24/19 ondansetron 4 mg disintegrating 4 mg PO TID-QID PRN #10 tab 05/17/19 tablet tamsulosin 0.4 mg capsule 0.4 mg PO DAILY #10 cap 05/17/19 fluoxetine 40 mg capsule 40 mg PO DAILY #90 cap 05/28/19 hydrocodone 5 mg-acetaminophen 325 1 tab PO Q4-6H PRN #10 tab 06/05/19 mg tablet ketorolac 10 mg tablet 10 mg PO Q6H PRN #14 tab 06/05/19 tramadol 50 mg PO BID PRN #7 tab 07/14/19 topiramate 100 mg tablet 200 mg PO Q DAY #60 tab 08/08/19 clonazepam 0.5 mg tablet 0.5 mg PO TID PRN #20 tab 09/17/19 zolpidem 10 mg tablet 10 mg PO BEDTIME PRN #30 tab 09/17/19 nadolol 40 mg tablet 40 mg PO Q DAY #30 tab 11/25/19 cephalexin [Keflex] 500 mg PO QID 7 Days #28 cap 11/26/19 hydrocodone-acetaminophen 1 tab PO Q4-6H PRN #10 tab 11/26/19 ketorolac 10 mg PO Q6H PRN #14 tab 11/26/19 ondansetron 4 mg PO TID-QID PRN #10 tab 11/26/19 oxycodone 5 mg PO Q8H PRN #10 tab 11/26/19 Allergies Allergy/AdvReac Type Severity Reaction Status Date / Time No Known Drug Allergies Allergy Verified 11/26/19 09:21 Review of Systems Constitutional Constitutional: Denies chills, Denies fatigue, Denies fever(s), Denies frequent falls, Denies lethargy and Denies weakness Eyes Eyes: Denies change in vision, Denies eye discharge, Denies irritation and Denies loss of vision ENT Ears, Nose, Mouth, and Throat: Denies change in voice, Denies dizziness, Denies neck pain, Denies sore throat and Denies throat swelling Cardiovascular Cardiovascular: Denies chest pain, Denies irregular heart rhythm, Denies lightheadedness, Denies palpitations, Denies dyspnea, Denies dyspnea on exertion and Denies orthopnea Respiratory Respiratory: Denies cough, Denies dyspnea, Denies dyspnea on exertion and Denies wheezing Gastrointestinal Gastrointestinal: Denies abdominal pain, Denies change in bowel habits, Denies diarrhea, Denies nausea and Denies vomiting Genitourinary Genitourinary: Denies hematuria, Reports flank pain, Denies urinary incontinence and Reports urinary urgency Musculoskeletal Musculoskeletal: Denies back pain, Denies muscle weakness, Denies neck pain, Denies numbness and Denies tingling Integumentary/Breasts Skin/Breast: Denies pruritus, Denies erythema, Denies rash and Denies wounds Neurologic Neurologic: Denies behavioral changes, Denies confusion, Denies dizziness, Denies frequent falls, Denies loss of vision, Denies numbness, Denies tingling and Denies weakness Psychiatric Psychiatric: Denies anxiety, Denies behavioral changes, Denies confusion, Denies depression, Denies homicidal ideation and Denies suicidal ideation Endocrine Endocrine: Denies fatigue, Denies flushing and Denies palpitations Hematologic/Lymphatic Hematologic/Lymphatic: Denies easy bruising Allergic/Immunologic Allergic/Immunologic: Denies urticaria, Denies throat swelling and Denies w heezing Patient History alcohol intake frequency: holidays/special occasions only Substance Use Type: does not use Exam Initial Vital Signs Initial Vital Signs: Vital Signs Temperature 98.4 F 11/26/19 09:21 Pulse Rate 72 11/26/19 09:21 Respiratory Rate 18 11/26/19 09:21 Blood Pressure 176/90 H 11/26/19 09:21 Pulse Oximetry 99 11/26/19 09:21 Course Orders Ordered: ED Orders 11/26/19 09:40 renal complete Stat 11/26/19 09:48 Urine Culture Stat Urine Microscopic Stat Discontinued Medications Sodium Chloride (Normal Saline 0.9%) 1,000 mls @ 1,000 mls/hr IV BOLUS ONE Stop: 11/26/19 10:16 Last Infusion: 11/26/19 10:57 Dose: 0 mls/hr Documented by: Admin: 11/26/19 09:41 Dose: 1,000 mls/hr Documented by: HERSON Lidocaine HCl 6.8 ml/ Sodium (Chloride) 56.8 mls @ 340.8 mls/hr IV NOW ONE Stop: 11/26/19 09:41 Last Infusion: 11/26/19 10:10 Dose: 0 mls/hr Documented by: Admin: 11/26/19 09:59 Dose: 340.8 mls/hr Documented by: HERSON Ketorolac Tromethamine (Toradol) 15 mg IV NOW ONE Stop: 11/26/19 09:18 Last Admin: 11/26/19 09:40 Dose: 15 mg Documented by: HERSON Ondansetron HCl (Zofran) 4 mg IV Q2HR PRN PRN Reason: Nausea And Vomiting Last Admin: 11/26/19 09:41 Dose: 4 mg Documented by: HERSON Vital Signs Vital signs: Vital Signs - 8 hr 11/26/19 10:20 Pulse Rate 66 Respiratory Rate 16 Blood Pressure [Left Arm] 120/83 Pulse Oximetry 100 MDM - Female Genitourinary Lab Data Labs: Lab Results 11/26/19 Range/Units 09:48 Urine RBC 1-5/hpf (0-5/HPF) Urine WBC 5-10/hpf H (0-5/HPF) Ur Squamous Epith Cells 0-1 /hpf (0-5/HPF) Urine Bacteria Many (>30) H (None) Ur Culture Indicated? Specimen cultured Urine Dip Bedside Urine Glucose Negative Bedside Urine Bilirubin - Negative Bedside Urine Ketone - Negative Urine Specific [place] 1.030 Bedside Urine Occult Blood +++ Bedside Urine pH 5.5 Bedside Urine Protein +/- 15 Bedside Urine Urobilinogen - Negative Bedside Urine Nitrite - Negative Bedside Urine Leukocytes - Negative Esterase Discharge Plan Departure Patient Disposition: Home Clinical Impression: Acute flank pain, Acute UTI Discharge Date/Time: 11/26/19 11:34 Instructions: DI for Kidney Stones, DI for Urinary Tract Infection (UTI) Activity Restrictions/Additional Instructions: *You have been diagnosed with [right flank pain secondary to likely kidney stone and urinary tract infection] *What to do: *Take medications as directed: Prescriptions sent to [facility] *Follow up with your primary care provider in 2-3 days, call for an appointment. Let them know you were seen in the Emergency Department and that we ask that you be seen in follow up *Return to ER if you should have any new, worsening or concerning symptoms, such as [fever, shaking chills, persistent vomiting or other bothersome symptoms] Prescriptions: New hydrocodone-acetaminophen 5-325 mg tablet 1 tab PO Q4-6H PRN (Reason: pain) Qty: 10 RF: 0 ketorolac 10 mg tablet 10 mg PO Q6H PRN (Reason: pain) Qty: 14 RF: 0 cephalexin [Keflex] 500 mg capsule 500 mg PO QID 7 Days Qty: 28 RF: 0 ondansetron 4 mg tablet,disintegrating 4 mg PO TID-QID PRN (Reason: nausea and vomiting) Qty: 10 RF: 0 oxycodone 5 mg tablet 5 mg PO Q8H PRN (Reason: pain) Qty: 10 RF: 0 No Action levothyroxine 88 mcg tablet 88 mcg PO DAILY Qty: 30 RF: 3 estradiol 0.5 mg tablet 0.25 mg PO QDAY Qty: 90 RF: 3 phentermine 37.5 mg tablet 37.5 mg PO DAILY Qty: 30 RF: 3 ondansetron 4 mg tablet,disintegrating 4 mg PO TID-QID PRN (Reason: nausea and vomiting) Qty: 10 RF: 0 tamsulosin [Flomax] 0.4 mg capsule 0.4 mg PO DAILY Qty: 10 RF: 0 fluoxetine 40 mg capsule 40 mg PO DAILY Qty: 90 RF: 3 hydrocodone-acetaminophen 5-325 mg tablet 1 tab PO Q4-6H PRN (Reason: pain) Qty: 10 RF: 0 ketorolac 10 mg tablet 10 mg PO Q6H PRN (Reason: pain) Qty: 14 RF: 0 topiramate [Topamax] 100 mg tablet 200 mg PO Q DAY Qty: 60 RF: 2 clonazepam 0.5 mg tablet 0.5 mg PO TID PRN (Reason: anxiety) Qty: 20 RF: 0 zolpidem 10 mg tablet 10 mg PO BEDTIME PRN (Reason: insomnia) Qty: 30 RF: 0 nadolol 40 mg tablet 40 mg PO Q DAY Qty: 30 RF: 0 estradiol [Estrace] 0.01 % (0.1 mg/gram) cream 1 gram VAG QWEEK Qty: 42.5 RF: 3 Fish oil PO RF: 0 calcium carbonate [Calcium 500] 500 mg calcium (1,250 mg) tablet 500 mg PO TID RF: 0 glucosamine-chondroitin 900 mg tablet PO RF: 0 ascorbic acid (vitamin C) 500 mg capsule PO RF: 0 turmeric root extract 500 mg capsule 1,000 mg PO DAILY RF: 0 tramadol 50 mg tablet 50 mg PO BID PRN (Reason: pain) Qty: 7 RF: 0 Referrals: Clau Sinha ARNP [Primary Care Provider] - Stand Alone Forms: Work Release Note
[2019-11-26] MEDS: LIDOCAINE 2% 6.8 ML in SODIUM CHLORIDE 0.9% 50 ML 340.8 ML IV (09:59)
[2019-11-26 10:20] VITALS: BP 120/83; PULSE 66; RESP 16; O2SAT 100
[2019-11-26 10:22] LABS: Bacteria Urine Many (>30); Culture Indicated Urine Specimen Cultured; RBC Urine 1-5/HPF (0-5/HPF); Squamous Epithelial Cell Urine 0-1 /HPF (0-5/HPF); WBC Urine 5-10/HPF (0-5/HPF)
== END 2019-11-26 11:34 | disposition home or self-care (01) ==
PROVIDERS: Emergency Provider Emergency Medicine; Family Provider Registered Nurse; PCP Registered Nurse
DX: N39.0 Urinary tract infection, site not specified (principal); R10.9 Unspecified abdominal pain; Z87.442 Personal history of urinary calculi
CPT/HCPCS: 36415; 76770; 81003; 81015; 87086; 96361; 96374; 96375; 99284; J1885; J2405

== ENCOUNTER → 2020-01-20 19:11 | Outpatient (ROUT) | payer OTHER, SELFPAY ==
[2020-01-20 19:42] LABS: Alanine Aminotransferase 26 IU/L (<35); Albumin 4.4 g/dL (3.5-5.0); Albumin Globulin Ratio 1.7 (1.0-2.8); Alkaline Phosphatase 79 U/L (38-126); Aspartate Aminotransferase 33 IU/L (14-36); BUN Creatinine Ratio 28.4 (6-22); Bilirubin Total 0.3 mg/dL (0.2-1.3); Blood Urea Nitrogen 21 mg/dL (7-17); Calcium 9.9 mg/dL (8.4-10.2); Carbon Dioxide 21 mmol/L (22-32); Chloride 109 mmol/L (98-107); Cholesterol 263 mg/dL (140-199); Estimated Glomerular Filt Rate > 60.0 mL/min (>60); Globulin 2.6 g/dL (1.7-4.1); Glucose 111 mg/dL (70-100); HDL Cholesterol 75 mg/dL (40-60); HEMOLYSIS < 15 (0-50); LDL Cholesterol Calculated 128 mg/dL (<100); Sodium 138 mmol/L (137-145); Triglycerides 299 mg/dL (35-150)
[2020-01-20 19:54] LABS: Add Manual Diff / Slide Review NO; Basophils Absolute Auto 0 /uL (0-100); Basophils Percent Auto 0.5 % (0-2); Eosinophils Absolute Auto 200 /uL (0-450); Eosinophils Percent Auto 2.2 % (2-4); Hematocrit 38.6 % (36-46); Lymphocytes Absolute Auto 2100 /uL (1100-4500); Lymphocytes Percent Auto 29.1 % (25-40); Mean Corpuscular HGB Conc 33.6 % (30-36); Mean Corpuscular Hemoglobin 31.1 PG (26-34); Mean Corpuscular Volume 92.6 fL (80-100); Monocytes Absolute Auto 300 /uL (0-900); Monocytes Percent Auto 4.6 % (3-14); Neutrophils Absolute Auto 4500 /uL (1500-7000); Neutrophils Percent Auto 63.6 % (50-75); Platelet Count 185 X10^3/uL (150-400); Red Blood Cell Count 4.17 X10^6/uL (4.0-5.2); Red Cell Distribution Width 13.2 % (11.6-14.8); White Blood Cell Count 7.1 X10^3/uL (4.5-11.0)
[2020-01-20 19:58] LABS: Vitamin D 25 Hydroxy (D3) 27.1 ng/mL (30.0-100.0)
[2020-01-20 20:12] LABS: TSH w/ Reflex to FT4 2.11 uIU/mL (0.47-4.68)
== END ==
PROVIDERS: Family Provider Registered Nurse; PCP Registered Nurse; Visit Provider Physician Assistant
DX: E03.9 Hypothyroidism, unspecified (principal); F41.9 Anxiety disorder, unspecified; N20.0 Calculus of kidney; E55.9 Vitamin D deficiency, unspecified
CPT/HCPCS: 80053; 80061; 82306; 84443; 85025

== ENCOUNTER → 2020-01-21 08:28 | Outpatient (CLI) | payer OTHER, SELFPAY ==
--- NOTE | 2020-01-21 | DI.RAD.S_ITS ---
PROCEDURE: XR SHOULDER RT MIN 2V INDICATIONS: CERVICAL RADICULOPATHY/ACUTE PAIN RIGHT SHOULDER TECHNIQUE: 3 views of the shoulder were acquired. COMPARISON: [facility], CR, SHOULDER MINIMUM 2VIEW RIGHT, 10/29/2015, 11:24. [facility], CR, SHOULDER MINIMUM 2 VIEW LEFT, 02/27/2015, 12:20. [facility], MR, SHOULDER WITHOUT CONTRAST, 12/01/2015, 15:36. [facility], CR, XR SHOULDER MIN 2VW RT, 05/13/2016, 13:48. [facility], CR, XR SHOULDER MIN 2VW RT, 06/10/2016, 13:40. [facility], CT, THORAX WITH CONTRAST, 03/14/2016, 8:16. FINDINGS: Bones: No acute fractures or dislocations. Deformity and cystic changes in the right greater tuberosity are likely related to prior injury. No suspicious bony lesions. Mild degenerative joint disease. Visualized ribs appear intact. Soft tissues: No suspicious soft tissue calcifications. IMPRESSION: 1. No acute osseous abnormalities. 2. Deformity and cystic changes in the greater tuberosity is likely sequelae of old injury. 3. Mild degenerative joint disease. Dictated by: Victor Hugo Farmer M.D. on 01/21/2020 at 10:22 Approved by: Victor Hugo Farmer M.D. on 01/21/2020 at 10:47
--- NOTE | 2020-01-21 | DI.RAD.S_ITS ---
PROCEDURE: XR CERVICAL SPINE 2V OR 3V INDICATIONS: CERVICAL RADICULOPATHY/ACUTE PAIN RIGHT SHOULDER TECHNIQUE: 4 view(s) of the cervical spine were acquired. COMPARISON: MR, C-SPINE WITHOUT CONTRAST, 07/22/2008, 15:19. [facility], XA, L/S-SPINE 2-3 VIEWS PAIN DEPT, 09/04/2013, 9:01. [facility], MR, MR CERVICAL SPINE WO/W CON, 01/31/2019, 12:24. FINDINGS: Bones: No fractures or dislocations to the C7 level. The lateral masses of C1 appear intact on the odontoid view. No suspicious bony lesions. There is degenerative disc disease, moderate at C6-C7, mild at C5-C6. Soft tissues: No prevertebral soft tissue swelling. IMPRESSION: Degenerative disc disease, moderate at C6-C7 and mild at C5-C6. Dictated by: Victor Hugo Farmer M.D. on 01/21/2020 at 11:20 Approved by: Victor Hugo Farmer M.D. on 01/21/2020 at 11:23
== END ==
PROVIDERS: Family Provider Registered Nurse; PCP Pediatrics; Referring Provider Physician Assistant; Visit Provider Physician Assistant
DX: M25.511 Pain in right shoulder (principal); M19.012 Primary osteoarthritis, left shoulder; M50.122 Cervical disc disorder at C5-C6 level with radiculopathy
CPT/HCPCS: 72040; 73030

== ENCOUNTER → 2020-01-30 19:54 | Outpatient (CLI) | payer OTHER, SELFPAY ==
--- NOTE | 2020-01-30 | DI.MRI.S_ITS ---
PROCEDURE: MR CERVICAL SPINE WO CON INDICATIONS: PAIN IN RIGHT SHOULDER TECHNIQUE: Noncontrast sagittal T1 spin echo and T2 fast spin echo, sagittal STIR, foraminal oblique sagittal T2 fast spin echo, and axial gradient echo or T2 fast spin echo through the cervical spine. COMPARISON: [facility], MR, MR CERVICAL SPINE WO/W CON, 01/31/2019, 12:24. [facility], MR, C-SPINE WITHOUT CONTRAST, 07/22/2008, 15:19. FINDINGS: Image quality: Excellent. Alignment and Curvature: There is loss of normal cervical lordosis, and otherwise normal alignment. Bone Marrow: Marrow demonstrates normal overall signal. Mild reactive signal within the endplates adjacent to the C4-C5, C5-C6, and C6-C7 intervertebral discs. Spinal Cord: Visualized spinal cord has normal size and signal. No cerebellar tonsillar herniation. Paraspinous Soft Tissues: No paravertebral masses. Prevertebral soft tissues are normal in thickness. C2-C3: Moderate disc desiccation. Mild diffuse disc bulge. Minimal canal stenosis. No foraminal stenosis. No change. C3-C4: Mild disc height loss and desiccation. Mild diffuse disc bulge. Mild facet and uncovertebral hypertrophy. Moderate canal stenosis. Mild bilateral foraminal stenosis. No change. C4-C5: Moderate disc desiccation. Mild diffuse disc bulge. Mild facet and uncovertebral hypertrophy. Moderate canal stenosis. Mild bilateral foraminal stenosis. No change. C5-C6: Moderate disc desiccation. Mild disc height loss. Mild diffuse disc bulge with superimposed right posterolateral protrusion. Mild facet and uncovertebral hypertrophy bilaterally. Moderate canal stenosis. Moderate right and mild left foraminal stenosis. No change. C6-C7: Moderate disc height loss and desiccation. Moderate diffuse disc bulge with superimposed broad-based right paracentral and posterolateral protrusion, which is slightly increased. Mild bilateral facet and uncovertebral hypertrophy. There is increased, severe canal stenosis, with new mild right cord flattening. There is increased, severe right foraminal stenosis. No change in mild left foraminal stenosis. New right C7 nerve root compression. C7-T1: Moderate disc desiccation. Mild disc height loss. Mild diffuse disc bulge. Mild facet and uncovertebral hypertrophy bilaterally. Mild canal stenosis. Mild bilateral foraminal stenosis. No change. IMPRESSION: 1. Multilevel degenerative disc and facet disease, as well as uncovertebral hypertrophy. 2. Multilevel canal stenosis, worst at C6-C7 where there is new mild cord flattening present. 3. Multilevel foraminal stenosis, worst at C6-C7 on the right where there is associated intraforaminal nerve root compression. Recommend correlation with clinical symptoms to ascertain relevance of this finding. Dictated by: Pablo Escobar M.D. on 01/31/2020 at 8:53 Approved by: Pablo Escobar M.D. on 01/31/2020 at 9:02
== END ==
PROVIDERS: Family Provider Registered Nurse; PCP Physician Assistant; Referring Provider Physician Assistant; Visit Provider Physician Assistant
DX: M50.11 Cervical disc disorder with radiculopathy, high cervical region (principal); M48.02 Spinal stenosis, cervical region; M25.511 Pain in right shoulder
CPT/HCPCS: 72141

== ENCOUNTER → 2020-03-23 13:31 | Outpatient (CLI) | payer OTHER, SELFPAY ==
[2020-03-25 08:26] LABS: COVID19 Sendout Not Detected (Not Detect)
== END ==
PROVIDERS: Family Provider Registered Nurse; PCP Physician Assistant; Visit Provider Physician Assistant
DX: Z11.59 Encounter for screening for other viral diseases (principal)
CPT/HCPCS: 87635

== ENCOUNTER → 2020-03-23 13:45 | Outpatient (CLI) | payer OTHER, SELFPAY ==
[2020-03-23 15:00] LABS: Add Manual Diff / Slide Review NO; Basophils Absolute Auto 0 /uL (0-100); Basophils Percent Auto 0.5 % (0-2); Eosinophils Absolute Auto 200 /uL (0-450); Eosinophils Percent Auto 2.7 % (2-4); Hematocrit 40.1 % (36-46); Hemoglobin 13.4 g/dL (12.0-16.0); Lymphocytes Absolute Auto 1800 /uL (1100-4500); Lymphocytes Percent Auto 30.3 % (25-40); Mean Corpuscular HGB Conc 33.3 % (30-36); Mean Corpuscular Hemoglobin 31.1 PG (26-34); Mean Corpuscular Volume 93.3 fL (80-100); Monocytes Absolute Auto 300 /uL (0-900); Monocytes Percent Auto 4.6 % (3-14); Neutrophils Absolute Auto 3800 /uL (1500-7000); Neutrophils Percent Auto 61.9 % (50-75); Platelet Count 195 X10^3/uL (150-400); Red Cell Distribution Width 13.1 % (11.6-14.8); White Blood Cell Count 6.1 X10^3/uL (4.5-11.0)
[2020-03-23 15:04] LABS: BUN Creatinine Ratio 29.3 (6-22); Blood Urea Nitrogen 22 mg/dL (7-17); Carbon Dioxide 27 mmol/L (22-32); Chloride 110 mmol/L (98-107); Estimated Glomerular Filt Rate > 60.0 mL/min (>60); Glucose 100 mg/dL (70-100); HEMOLYSIS < 15 (0-50); Potassium 4.8 mmol/L (3.4-5.1); Sodium 145 mmol/L (137-145)
== END ==
PROVIDERS: Family Provider Registered Nurse; PCP Physician Assistant; Referring Provider Physician Assistant; Visit Provider Neurological Surgery
DX: Z01.818 Encounter for other preprocedural examination (principal); M54.12 Radiculopathy, cervical region; M48.02 Spinal stenosis, cervical region
CPT/HCPCS: 36415; 80048; 85025; 93005

== ENCOUNTER → 2020-05-06 15:33 | Outpatient (CLI) | payer OTHER, SELFPAY | PROVIDERS: PCP Physician Assistant; Referring Provider Internal Medicine; Visit Provider Internal Medicine | DX: Z23 Encounter for immunization (principal) | CPT/HCPCS: 90471; 90686 ==

== ENCOUNTER → 2020-07-02 16:48 | Outpatient (CLI) | payer OTHER, SELFPAY ==
[2020-07-02] MEDS: COVID-19 VACC(MODERNA-1)/PF 100 MCG/0.5 ML VIAL IM (16:54)
== END ==
PROVIDERS: PCP Physician Assistant; Visit Provider Internal Medicine
DX: Z23 Encounter for immunization (principal)
CPT/HCPCS: 0011A; 91301

== ENCOUNTER → 2020-07-29 13:43 | Outpatient (CLI) | payer OTHER, SELFPAY ==
[2020-07-29] MEDS: COVID-19 VACC #2, MRNA(MOD) 100 MCG/0.5 ML VIAL IM (13:49)
== END ==
PROVIDERS: PCP Physician Assistant; Visit Provider Internal Medicine
DX: Z23 Encounter for immunization (principal)
CPT/HCPCS: 0012A; 91301

== ENCOUNTER → 2022-01-05 14:31 | Outpatient (CLI) | payer OTHER, SELFPAY ==
--- NOTE | 2022-01-05 14:37 | DI.MG.S_ITS ---
BILATERAL DIGITAL SCREENING MAMMOGRAM 3D/2D WITH CAD: 01/05/2022 CLINICAL: Routine screening. Family history of breast cancer. Comparison is made to exams dated: 09/07/2017 mammogram, 01/15/2015 mammogram, and 08/09/2012 mammogram - [facility]. The tissue of both breasts is heterogeneously dense. This may lower the sensitivity of mammography. Current study was also evaluated with a Computer Aided Detection (CAD) system. There is a new round focal asymmetry with a circumscribed margin in the right breast at 11 o'clock anterior depth. There is an irregular focal asymmetry with a circumscribed margin in the left breast at 1 o'clock middle depth. No other significant masses or calcifications are seen in either breast. IMPRESSION: INCOMPLETE: NEEDS ADDITIONAL IMAGING EVALUATION The new round focal asymmetry in the right breast at 11 o'clock anterior depth is indeterminate. Additional views with possible ultrasound are recommended. The irregular focal asymmetry in the left breast at 1 o'clock middle depth is indeterminate. Additional views with possible ultrasound are recommended. Based on the Tyrer Cuzick model (a risk assessment model) the patient's lifetime risk is 11.2% and her 10 year risk is 4.6%. According to the ACR, ACS, and NCCN guidelines, an annual breast MRI exam along with mammogram is recommended if the patient's lifetime risk is 20% or greater. This exam was interpreted at Station ID: [id number]. NOTE: For mammograms, a report in lay terms will be sent to the patient. Approximately 15% of breast malignancies will not be visualized mammographically. In the management of a palpable breast mass, a negative mammogram must not discourage biopsy of a clinically suspicious lesion. Electronically Signed By: Jose Webb acr/:01/05/2022 15:00:11 letter sent: Additional Imaging Needed ACR BI-RADS Category 0: Incomplete 3340F
== END ==
PROVIDERS: PCP Physician Assistant; Referring Provider Physician Assistant; Visit Provider Physician Assistant
DX: Z12.31 Encounter for screening mammogram for malignant neoplasm of breast (principal); Z80.3 Family history of malignant neoplasm of breast; N64.89 Other specified disorders of breast
CPT/HCPCS: 77063; 77067

== ENCOUNTER → 2022-01-24 08:38 | Outpatient (CLI) | payer OTHER, SELFPAY ==
--- NOTE | 2022-01-24 | DI.MG.S_ITS ---
BILATERAL DIGITAL DIAGNOSTIC MAMMOGRAM 3D/2D: 01/24/2022 CLINICAL: Additional evaluation requested from prior study. Comparison is made to exams dated: 01/05/2022 mammogram, 09/07/2017 mammogram, and 01/15/2015 mammogram - [facility]. The tissue of both breasts is heterogeneously dense. This may lower the sensitivity of mammography. There is a new round focal asymmetry with a circumscribed margin in the right breast at 12 o'clock anterior depth. There is an oval focal asymmetry with a circumscribed margin in the left breast at 1 o'clock middle depth. No other significant masses or calcifications are seen in either breast. IMPRESSION: INCOMPLETE: NEEDS ADDITIONAL IMAGING EVALUATION The new round focal asymmetry in the right breast at 12 o'clock anterior depth most likely is a cyst and is indeterminate. An ultrasound is recommended. The oval focal asymmetry in the left breast at 1 o'clock middle depth most likely is a cyst and is indeterminate. An ultrasound is recommended. Based on the Tyrer Cuzick model (a risk assessment model) the patient's lifetime risk is 11.2% and her 10 year risk is 4.6%. According to the ACR, ACS, and NCCN guidelines, an annual breast MRI exam along with mammogram is recommended if the patient's lifetime risk is 20% or greater. This exam was interpreted at Station ID: [id number]. NOTE: For mammograms, a report in lay terms will be sent to the patient. Approximately 15% of breast malignancies will not be visualized mammographically. In the management of a palpable breast mass, a negative mammogram must not discourage biopsy of a clinically suspicious lesion. Electronically Signed By: Alphonso Del Rio M.D., jr/berny:01/24/2022 12:20:59 ACR BI-RADS Category 0: Incomplete 3340F
--- NOTE | 2022-01-24 | DI.US.S_ITS ---
PROCEDURE: US BREAST LT LIMITED COMPARISON: [facility], BREAST RT LIMITED, 01/24/2022, 10:43. INDICATIONS: ADD VIEWS BILATERAL BREASTS FINDINGS: IMPRESSION: Dictated by: Alphonso Del Rio M.D. on 01/24/2022 at 12:20 Approved by: Alphonso Del Rio M.D. on 01/24/2022 at 12:21
--- NOTE | 2022-01-24 | DI.US.S_ITS ---
LIMITED ULTRASOUND OF RIGHT BREAST: 01/24/2022 CLINICAL: Patient returns for additional imaging over a suspected mass in the right breast. No prior exams were available for comparison. Color flow and real-time ultrasound of the right breast 11 o'clock region were performed. Duong scale images of the real-time examination were reviewed. There is a benign simple cyst in the right breast central to the nipple anterior depth. IMPRESSION: BENIGN There is no sonographic evidence of malignancy. The simple cyst in the right breast is benign. A 1 year screening mammogram is recommended. This exam was interpreted at Station ID: [id number]. Electronically Signed By: Alphonso Del Rio M.D., jr/berny:01/24/2022 12:21:31 letter sent: Normal Exam Ultrasound BI-RADS: 2 Benign
--- NOTE | 2022-01-24 10:50 | DI.US.S_ITS ---
Procedure: US breast LT limited LIMITED ULTRASOUND OF LEFT BREAST: 01/24/2022 CLINICAL: Patient returns for additional imaging over a suspected mass in the left breast. No prior exams were available for comparison. Color flow and real-time ultrasound of the left breast 1 o'clock region were performed. Duong scale images of the real-time examination were reviewed. There is a benign simple cyst in the left breast at 1 o'clock middle depth. IMPRESSION: BENIGN There is no sonographic evidence of malignancy. The simple cyst in the left breast is benign. A 1 year screening mammogram is recommended. This exam was interpreted at Station ID: Unknown. Electronically Signed By: Alphonso Del Rio M.D., jr/berny:01/24/2022 12:22:21 Entry: - 01/25/2022 10:50:40 Ultrasound BI-RADS: 2 Benign
== END ==
PROVIDERS: PCP Physician Assistant; Referring Provider Physician Assistant; Visit Provider Physician Assistant
DX: R92.8 Other abnormal and inconclusive findings on diagnostic imaging of breast (principal); N60.01 Solitary cyst of right breast; N60.02 Solitary cyst of left breast
CPT/HCPCS: 76642; 77066; G0279

== ENCOUNTER 2022-03-12 23:16 | Emergency (ER) | payer OTHER, SELFPAY ==
[2022-03-12 23:26] VITALS: BP 130/60; PULSE 82; RESP 22; TEMP 36.6; O2SAT 97; BMI 31.9
[2022-03-12 23:58] LABS: Bacteria Urine Many (>30); RBC Urine 0-1/HPF (0-5/HPF); WBC Urine 0-1/HPF (0-5/HPF)
[2022-03-12 23:59] LABS: Culture Indicated Urine Cult Not Indicated; Squamous Epithelial Cell Urine 10-30 /HPF (0-5/HPF)
[2022-03-13] MEDS: SODIUM CHLORIDE 0.9% 1,000 ML 1000 ML IV (00:15)
[2022-03-13] MEDS: HYDROMORPHONE 0.5 MG INJ IV ×3 (00:15→01:05)
[2022-03-13] MEDS: KETOROLAC 30 MG/ML VIAL 15 MG IV (00:36)
[2022-03-13 00:40] VITALS: PULSE 69; O2SAT 98
--- NOTE | 2022-03-13 00:47 | DI.CT.S_ITS ---
PROCEDURE: CT KIDNEY URETER BLADDER (KUB) INDICATIONS: right flank pain TECHNIQUE: Axial sections were acquired from the lung bases to the pubic symphysis. Coronal and sagittal reformats were performed. For radiation dose reduction, the following was used: automated exposure control, adjustment of mA and/or kV according to patient size. COMPARISON: [facility], CT, CT KIDNEY URETER BLADDER (KUB), 05/14/2019, 20:20. [facility], CT, KIDNEY/ URETER/BLADDER, 03/17/2009, 7:46. FINDINGS: Image quality: Excellent. Lung bases: Unremarkable. Heart: No significant findings. URINARY: Right Kidney: There are currently nonobstructive calculi ranging in size from 1 to 5 mm scattered within the collecting system of right kidney. The largest calculus, at the middle 3rd of the right kidney collecting system, measures 426 Hounsfield units. Right Ureter: No hydroureter. Left Kidney: As was seen at the right kidney there are scattered small nonobstructive calculi within the collecting system of the left kidney ranging in size from 2 to 4 mm. Left Ureter: No hydroureter. Bladder: Normal wall thickness. No stones. ABDOMEN: Liver: Unremarkable. Gallbladder: Previously resected. Biliary ducts: Unremarkable. Pancreas: Unremarkable. Spleen: Unremarkable. Adrenal Glands: Unremarkable. Stomach and Bowel: Stomach, small bowel loops, and colon are unremarkable. Peritoneum: No abnormal intraperitoneal fluid. No free air. Ventral Wall: No hernia. Abdominal Nodes: No enlarged retroperitoneal or mesenteric lymph nodes. Vessels: Aorta and inferior vena cava are normal in size. PELVIS: Pelvic Organs: Unremarkable. Pelvic Nodes: Unremarkable. Miscellaneous: No inguinal hernias are seen. Bones: Unremarkable. IMPRESSION: Bilateral small scattered nonobstructive collecting system calculi are seen, and no ureteral stone or obstruction is identified. Currently no sign of pyelonephritis is identified. Dictated by: Ulises Alvarez M.D. on 03/13/2022 at 1:17 Approved by: Ulises Alvarez M.D. on 03/13/2022 at 1:22
--- NOTE | 2022-03-13 00:52 | ED.BACK ---
HPI - Back Pain/Injury General Chief Complaint: Back Pain/Injury Stated Complaint: POSSIBLE KIDNEY STONES/HX Time Seen by Provider: 03/13/22 00:08 Source: patient History of Present Illness HPI Narrative: 61-year-old woman with a history of migraines, postmenopausal, anxiety and depression with a prior history of kidney stones presents with right flank pain. She was concerned that she may have ?thrown her back out? earlier today however the pain has continued to progress to the point where it is intolerable, causing shaking diaphoresis and nausea and now is clearly localizing to the flank and radiating into the right lower quadrant. She has not appreciated any fevers, upper abdominal pain, vomiting, diarrhea, chest pain, palpitations, dyspnea, orthopnea. Related Data Home Medications Medication Instructions Recorded Confirmed Fish oil PO 11/07/18 07/14/19 antiarthritic combination no.2 900 mg PO 11/07/18 07/14/19 mg tablet (glucosamine-chondroitin) ascorbic acid (vitamin C) 500 mg mg PO 11/07/18 07/14/19 capsule calcium carbonate 500 mg calcium 500 mg PO TID 11/07/18 07/14/19 (1,250 mg) tablet (Calcium 500) turmeric root extract 500 mg 1,000 mg PO DAILY 11/07/18 07/14/19 capsule Previous Rx's Medication Instructions Recorded estradiol 0.01% (0.1 mg/gram) 1 gram vaginal QWEEK #42.5 grams 04/10/18 vaginal cream (Estrace) estradiol 0.5 mg tablet 0.25 mg PO QDAY #90 tabs 01/03/19 phentermine 37.5 mg tablet 37.5 mg PO DAILY #30 tabs 01/24/19 ondansetron 4 mg disintegrating 4 mg PO TID-QID PRN nausea and 05/17/19 tablet vomiting #10 tabs tamsulosin 0.4 mg capsule (Flomax) 0.4 mg PO DAILY #10 caps 05/17/19 fluoxetine 40 mg capsule 40 mg PO DAILY #90 caps 05/28/19 hydrocodone 5 mg-acetaminophen 325 1 tab PO Q4-6H PRN pain #10 tabs 06/05/19 mg tablet ketorolac 10 mg tablet 10 mg PO Q6H PRN pain #14 tabs 06/05/19 tramadol 50 mg tablet 50 mg PO BID PRN pain #7 tabs 07/14/19 clonazepam 0.5 mg tablet 0.5 mg PO TID PRN anxiety #20 tabs 09/17/19 zolpidem 10 mg tablet 10 mg PO BEDTIME PRN insomnia #30 09/17/19 tabs nadolol 40 mg tablet 40 mg PO Q DAY #30 tabs 11/25/19 hydrocodone 5 mg-acetaminophen 325 1 tab PO Q4-6H PRN pain #10 tabs 11/26/19 mg tablet ketorolac 10 mg tablet 10 mg PO Q6H PRN pain #14 tabs 11/26/19 ondansetron 4 mg disintegrating 4 mg PO TID-QID PRN nausea and 11/26/19 tablet vomiting #10 tabs oxycodone 5 mg tablet 5 mg PO Q8H PRN pain #10 tabs 11/26/19 levothyroxine 88 mcg tablet 88 mcg PO DAILY #30 tabs 12/30/19 topiramate 100 mg tablet (Topamax) 200 mg PO Q DAY #60 tabs 12/30/19 oxycodone-acetaminophen 5 mg-325 1 tab PO Q6H PRN pain #10 tabs 03/13/22 mg tablet Allergies Allergy/AdvReac Type Severity Reaction Status Date / Time No Known Drug Allergies Allergy Verified 03/12/22 23:26 Review of Systems Review of Systems Narrative: Remainder of complete review of systems is otherwise unremarkable except for that included in the HPI. Patient History Medical History (Updated 03/13/22 @ 02:10 by Ashley Brower MD) Breathing-related sleep disorder Chronic headaches Excessive daytime sleepiness Insomnia Snoring Surgical History History of bilateral salpingo-oophorectomy (BSO) (1995) Status post hysterectomy Family History Brother Melanoma Father Hypertension Mother Melanoma Stroke Family/Other Breast cancer Other Colorectal cancer Social History Smoking Status: Former smoker alcohol intake: never substance use type: does not use Smoking Status: Former smoker alcohol intake frequency: holidays/special occasions only Substance Use Type: does not use Exam Initial Vital Signs Initial Vital Signs: Vital Signs Temperature 97.8 F 03/12/22 23:26 Pulse Rate 82 03/12/22 23:26 Respiratory Rate 22 03/12/22 23:26 Blood Pressure 130/60 03/12/22 23:26 Pulse Oximetry 97 03/12/22 23:26 Oxygen Delivery Method 03/12/22 23:26 General: Healthy appearing, significant right flank pain making it difficult to remain still. Able to give a complete and coherent history. Well-nourished well-developed HEENT: Moist mucous membranes, normal sclera with reactive pupils, Respiratory: Lungs are clear to auscultation, no wheezing no rales no rhonchi. Full and symmetrical air movement Cardiac: Regular rate and rhythm no murmurs no bruits Abdomen: Soft, right flank pain and mild right lower quadrant pain. No peritoneal signs Spine: No paraspinous muscle spasm or tenderness along the midline thoracic or lumbar spine Skin: Warm and dry, no rashes Neurologic: Grossly neurologically intact with no obvious asymmetries or abnormalities Extremities: No trauma, well perfused Psych: Cooperative, appropriate insight and affect Course Orders Ordered: ED Orders 03/12/22 23:30 Urine Microscopic Stat 03/13/22 00:47 CT kidney ureter bladder (KUB) Stat 03/13/22 01:23 Complete Blood Count AUTO DIFF Stat Comprehensive Metabolic Panel Stat Hydromorphone HCl (Hydromorphone 0.5 Mg Inj) 0.5 mg IV Q15MIN PRN PRN Reason: Pain, Last Admin: 03/13/22 01:05 Dose: 0.5 mg Documented By: Admin: 03/13/22 00:37 Dose: 0.5 mg Documented By: Admin: 03/13/22 00:15 Dose: 0.5 mg Documented By: YUNIOR Discontinued Medications Sodium Chloride (Normal Saline 0.9%) 1,000 mls @ 1,000 mls/hr IV BOLUS ONE Stop: 03/13/22 01:08 Last Infusion: 03/13/22 01:14 Dose: 0 mls/hr Documented By: Admin: 03/13/22 00:15 Dose: 1,000 mls/hr Documented By: YUNIOR Ketorolac Tromethamine (Ketorolac 30 Mg/Ml Vial) 15 mg IV NOW ONE Stop: 03/13/22 00:34 Last Admin: 03/13/22 00:36 Dose: 15 mg Documented By: YUNIOR Ondansetron HCl (Ondansetron 4 Mg/2 Ml Inj) 4 mg IV NOW ONE Stop: 03/13/22 01:10 Last Admin: 03/13/22 01:12 Dose: 4 mg Documented By: YUNIOR Vital Signs Vital signs: Vital Signs - 8 hr 03/12/22 23:26 Temperature 97.8 F Pulse Rate 82 Respiratory Rate 22 Blood Pressure 130/60 Pulse Oximetry 97 Oxygen Delivery Method Room Air MDM - Back Pain/Injury Lab Data Result diagrams: 03/12/22 23:55 03/12/22 23:55 Labs: Lab Results 03/12/22 03/12/22 03/12/22 Range/Units 23:30 23:55 23:55 WBC 6.2 (4.5-11.0) X10^3/uL RBC 4.35 (4.0-5.2) X10^6/uL Hgb 13.4 (12.0-16.0) g/dL Hct 39.7 (36-46) % MCV 91.4 (80-100) fL MCH 30.8 (26-34) PG MCHC 33.7 (30-36) % RDW 13.1 (11.6-14.8) % Plt Count 193 (150-400) X10^3/uL Neut % (Auto) 51.4 (50-75) % Lymph % (Auto) 38.9 (25-40) % [place] % (Auto) 6.3 (3-14) % Eos % (Auto) 2.8 (2-4) % Baso % (Auto) 0.6 (0-2) % Neut # (Auto) 3200 (4543-7916) /uL Lymph # (Auto) 2400 (3374-2317) /uL Marathon # (Auto) 400 (0-900) /uL Eos # (Auto) 200 (0-450) /uL Baso # (Auto) 0 (0-100) /uL Sodium 142 (137-145) mmol/L Potassium 3.6 (3.4-5.1) mmol/L Chloride 110 H (98-107) mmol/L Carbon Dioxide 22 (22-32) mmol/L BUN 20 H (7-17) mg/dL Creatinine 0.82 (0.52-1.04) mg/dL Estimated GFR > 60 (>60) mL/min BUN/Creatinine Ratio 24.4 H (6-22) Glucose 128 H (80-110) mg/dL Calcium 9.4 (8.4-10.2) mg/dL Total Bilirubin 0.3 (0.2-1.3) mg/dL AST 34 (14-36) IU/L ALT 31 (<35) IU/L Alkaline Phosphatase 68 (38-126) U/L Total Protein 7.4 (6.3-8.2) g/dL Albumin 4.4 (3.5-5.0) g/dL Globulin 3.0 (1.7-4.1) g/dL Albumin/Globulin Ratio 1.5 (1.0-2.8) Urine RBC 0-1/hpf (0-5/HPF) Urine WBC 0-1/hpf (0-5/HPF) Ur Squamous Epith Cells 10-30 /hpf H D (0-5/HPF) Urine Bacteria Many (>30) H (None) Ur Culture Indicated? Cult not indicated Urine Dip Bedside Urine Glucose Negative Bedside Urine Bilirubin - Negative Bedside Urine Ketone - Negative Urine Specific [place] 1.010 Bedside Urine Occult Blood +/- Bedside Urine pH 7.0 Bedside Urine Protein - Negative Bedside Urine Urobilinogen - Negative Bedside Urine Nitrite - Negative Bedside Urine Leukocytes - Negative Esterase Imaging Data CT scan - abdomen/pelvis: Radiologist's Impression: FINDINGS:? Image quality:? Excellent.? ? Lung bases:? Unremarkable.? ? Heart:? No significant findings. ? URINARY: Right Kidney:? There are currently nonobstructive calculi ranging in size from 1 to 5 mm scattered within the collecting system of right kidney.? The largest calculus, at the middle 3rd of the right kidney collecting system, measures 426 Hounsfield units. Right Ureter:? No hydroureter.? ? Left Kidney:? As was seen at the right kidney there are scattered small nonobstructive calculi within the collecting system of the left kidney ranging in size from 2 to 4 mm.? Left Ureter:? No hydroureter.? ? Bladder:? Normal wall thickness. No stones. ? ? ? ABDOMEN: Liver:? Unremarkable.? ? Gallbladder:? Previously resected.? ? Biliary ducts:? Unremarkable.? ? Pancreas:? Unremarkable.? ? Spleen:? Unremarkable.? ? Adrenal Glands:? Unremarkable.? ? ? Stomach and Bowel:? Stomach, small bowel loops, and colon are unremarkable.? Peritoneum:? No abnormal intraperitoneal fluid.? No free air.? ? Ventral Wall: ? No hernia.? Abdominal Nodes:? No enlarged retroperitoneal or mesenteric lymph nodes.? Vessels:? Aorta and inferior vena cava are normal in size.? ? PELVIS: Pelvic Organs:? Unremarkable.? ? Pelvic Nodes: Unremarkable. Miscellaneous: No inguinal hernias are seen. ? ? ? Bones:? Unremarkable. ? IMPRESSION:? ? Bilateral small scattered nonobstructive collecting system calculi are seen, and no ureteral stone or obstruction is identified.? Currently no sign of pyelonephritis is identified. ? ? ? Dictated by: Ulises Alvarez M.D. on 03/13/2022 at 1:17 ? ? MDM Narrative Medical decision making narrative: 61-year-old woman with acute onset of right flank pain. Known history of kidney stones. Significant right paraspinous, flank radiating into right lower quadrant pain. Lab work is reassuring with no evidence of acute kidney issues nor overwhelming infection. No evidence of acute anemia. CT scan of the abdomen shows stones in the kidneys however no obstructing stones no hydro nephrosis to suggest a recently passed stone. No evidence of urinary tract infection, bowel obstruction, intra-abdominal surgical pathology or alternate explanation for her pain. Most likely explanation at this time is in fact musculoskeletal. There is no evidence for cauda equina syndrome or acute disc herniation. All of these findings reviewed with patient and questions were answered. At this point I believe it is safe for her to be discharged home with pain medication to do with the pain for the next 24-48 hours with instructions to return if symptoms worsen. She will follow-up with her primary care provider. Discharge Plan Departure Patient Disposition: Home Clinical Impression: Acute low back pain Qualifiers: Back pain laterality: right Sciatica presence: without sciatica Qualified Code(s): M54.50 - Low back pain, unspecified Instructions: DI for Back Spasm Activity Restrictions/Additional Instructions: Thank you for coming in tonight There is no evidence for an obstructing kidney stone, kidney infection, bowel obstruction or other life-threatening abnormalities on your CT scan. Your lab work is quite reassuring as well. After the workup done in the emergency department, I believe the best explanation for your severe pain is, in fact, an acute muscle strain. With pain this severe in the 1st 12 hours the next 24-36 hours are going to be painful as well. Using 400 mg of ibuprofen (2 [id number] pills) and 1 Tylenol every 6 hours can be very helpful in controlling pain. For severe pain using 400 mg of ibuprofen and 1 Percocet can be helpful. I would recommend both ice and heat to the area to see which seems to be most effective. If you find that you are getting worse or develop new symptoms please return to the emergency department Prescriptions: New oxycodone-acetaminophen 5-325 mg tablet 1 tab PO Q6H PRN (Reason: pain) Qty: 10 0RF No Action estradiol 0.5 mg tablet 0.25 mg PO QDAY Qty: 90 3RF phentermine 37.5 mg tablet 37.5 mg PO DAILY Qty: 30 3RF Rx Instructions: Take 1/2 tablet daily ondansetron 4 mg tablet,disintegrating 4 mg PO TID-QID PRN (Reason: nausea and vomiting) Qty: 10 0RF tamsulosin [Flomax] 0.4 mg capsule 0.4 mg PO DAILY Qty: 10 0RF fluoxetine 40 mg capsule 40 mg PO DAILY Qty: 90 3RF hydrocodone-acetaminophen 5-325 mg tablet 1 tab PO Q4-6H PRN (Reason: pain) Qty: 10 0RF ketorolac 10 mg tablet 10 mg PO Q6H PRN (Reason: pain) Qty: 14 0RF clonazepam 0.5 mg tablet 0.5 mg PO TID PRN (Reason: anxiety) Qty: 20 0RF Rx Instructions: Needs to establish with new PCP prior to more refills. zolpidem 10 mg tablet 10 mg PO BEDTIME PRN (Reason: insomnia) Qty: 30 0RF Rx Instructions: Needs to establish with new PCP prior to more refills. nadolol 40 mg tablet 40 mg PO Q DAY Qty: 30 0RF Rx Instructions: Patient needs new PCP for further refills. levothyroxine 88 mcg tablet 88 mcg PO DAILY Qty: 30 0RF Rx Instructions: Must establish care with new provider for more refills. Needs labs please. topiramate [Topamax] 100 mg tablet 200 mg PO Q DAY Qty: 60 0RF Rx Instructions: Must establish care with new provider prior to more fills. estradiol [Estrace] 0.01 % (0.1 mg/gram) cream 1 gram VAG QWEEK Qty: 42.5 3RF Fish oil PO calcium carbonate [Calcium 500] 500 mg calcium (1,250 mg) tablet 500 mg PO TID glucosamine-chondroitin 900 mg tablet PO ascorbic acid (vitamin C) 500 mg capsule PO turmeric root extract 500 mg capsule 1,000 mg PO DAILY tramadol 50 mg tablet 50 mg PO BID PRN (Reason: pain) Qty: 7 0RF hydrocodone-acetaminophen 5-325 mg tablet 1 tab PO Q4-6H PRN (Reason: pain) Qty: 10 0RF ketorolac 10 mg tablet 10 mg PO Q6H PRN (Reason: pain) Qty: 14 0RF ondansetron 4 mg tablet,disintegrating 4 mg PO TID-QID PRN (Reason: nausea and vomiting) Qty: 10 0RF oxycodone 5 mg tablet 5 mg PO Q8H PRN (Reason: pain) Qty: 10 0RF Referrals: Nikki Whelan PA-C [Primary Care Provider] -
[2022-03-13 01:04] VITALS: PULSE 71; O2SAT 98
[2022-03-13] MEDS: ONDANSETRON 4 MG/2 ML INJ IV (01:12)
[2022-03-13 01:30] VITALS: PULSE 63; O2SAT 94
[2022-03-13 01:33] LABS: Add Manual Diff / Slide Review NO; Basophils Absolute Auto 0 /uL (0-100); Basophils Percent Auto 0.6 % (0-2); Eosinophils Absolute Auto 200 /uL (0-450); Eosinophils Percent Auto 2.8 % (2-4); Hematocrit 39.7 % (36-46); Hemoglobin 13.4 g/dL (12.0-16.0); Lymphocytes Absolute Auto 2400 /uL (1100-4500); Lymphocytes Percent Auto 38.9 % (25-40); Mean Corpuscular HGB Conc 33.7 % (30-36); Mean Corpuscular Hemoglobin 30.8 PG (26-34); Mean Corpuscular Volume 91.4 fL (80-100); Monocytes Absolute Auto 400 /uL (0-900); Monocytes Percent Auto 6.3 % (3-14); Neutrophils Absolute Auto 3200 /uL (1500-7000); Neutrophils Percent Auto 51.4 % (50-75); Platelet Count 193 X10^3/uL (150-400); Red Blood Cell Count 4.35 X10^6/uL (4.0-5.2); Red Cell Distribution Width 13.1 % (11.6-14.8); White Blood Cell Count 6.2 X10^3/uL (4.5-11.0)
[2022-03-13 01:36] LABS: Alanine Aminotransferase 31 IU/L (<35); Albumin 4.4 g/dL (3.5-5.0); Albumin Globulin Ratio 1.5 (1.0-2.8); Alkaline Phosphatase 68 U/L (38-126); Aspartate Aminotransferase 34 IU/L (14-36); BUN Creatinine Ratio 24.4 (6-22); Bilirubin Total 0.3 mg/dL (0.2-1.3); Blood Urea Nitrogen 20 mg/dL (7-17); Calcium 9.4 mg/dL (8.4-10.2); Carbon Dioxide 22 mmol/L (22-32); Chloride 110 mmol/L (98-107); Estimated Glomerular Filt Rate > 60 mL/min (>60); Glucose 128 mg/dL (80-110); HEMOLYSIS < 15 (0-50); Potassium 3.6 mmol/L (3.4-5.1); Sodium 142 mmol/L (137-145); Total Protein 7.4 g/dL (6.3-8.2)
[2022-03-13 02:00] VITALS: PULSE 73; O2SAT 95
[2022-03-13] MEDS: OXYCODONE/ACETAMINOPHEN 5/325 TABLET 2 TAB PO (02:11)
[2022-03-13 02:12] VITALS: PULSE 67; O2SAT 96
[2022-03-13] MEDS: OXYCODONE/APAP 5/325 PREPACK 1 BOTTLE MISC (02:12)
[2022-03-13 02:15] VITALS: BP 118/56
== END 2022-03-13 02:27 | disposition home or self-care (01) ==
PROVIDERS: Emergency Provider Emergency Medicine; PCP Physician Assistant
DX: M54.50 Low back pain, unspecified (principal)
CPT/HCPCS: 36415; 74176; 80053; 81003; 81015; 85025; 96361; 96374; 96375; 99284; J1170; J1885; J2405

== ENCOUNTER 2023-01-18 14:01 | Emergency (ER) | payer OTHER, SELFPAY ==
[2023-01-18 14:04] VITALS: BP 123/59; PULSE 65; RESP 18; TEMP 36.5; O2SAT 100; BMI 28.8
--- NOTE | 2023-01-18 14:12 | DI.RAD.S_ITS ---
PROCEDURE: XR CHEST 1V INDICATIONS: CHEST PAIN, MIGRAINE TECHNIQUE: One view of the chest was acquired. COMPARISON: [facility], CR, CHEST 2 VIEW, 08/07/2009, 17:14. CR, XR CERVICAL SPINE 2V OR 3V, 01/21/2020, 8:32. FINDINGS: Surgical changes and devices: Surgical changes in the lower cervical spine. Lungs and pleura: Lungs are clear. No pleural effusions or pneumothorax. There are metallic artifact in the thoracic inlet at midline. Mediastinum: Mediastinal contours appear normal. Heart size is normal. Bones and chest wall: No suspicious bony lesions. Overlying soft tissues appear unremarkable. IMPRESSION: No acute cardiopulmonary disease. Dictated by: Victor Hugo Farmer M.D. on 01/18/2023 at 15:04 Approved by: Victor Hugo Farmer M.D. on 01/18/2023 at 15:07
[2023-01-18 14:38] LABS: Add Manual Diff / Slide Review NO; Basophils Absolute Auto 0 /uL (0-100); Basophils Percent Auto 0.7 % (0-2); Eosinophils Absolute Auto 200 /uL (0-450); Eosinophils Percent Auto 3.4 % (2-4); Hematocrit 38.4 % (36-46); Lymphocytes Absolute Auto 1600 /uL (1100-4500); Mean Corpuscular HGB Conc 33.8 % (30-36); Mean Corpuscular Hemoglobin 31.5 PG (26-34); Mean Corpuscular Volume 93.3 fL (80-100); Monocytes Absolute Auto 300 /uL (0-900); Monocytes Percent Auto 5.6 % (3-14); Neutrophils Absolute Auto 3300 /uL (1500-7000); Neutrophils Percent Auto 61.3 % (50-75); Platelet Count 188 X10^3/uL (150-400); Red Blood Cell Count 4.11 X10^6/uL (4.0-5.2); Red Cell Distribution Width 12.8 % (11.6-14.8); White Blood Cell Count 5.4 X10^3/uL (4.5-11.0)
[2023-01-18 14:42] LABS: Prothrombin Time 11.4 SECONDS (10.1-12.7)
[2023-01-18 14:45] LABS: PTT Partial Thromboplastin Tim 30 SECONDS (26-36)
[2023-01-18 14:48] LABS: Alanine Aminotransferase 45 IU/L (<35); Albumin 4.4 g/dL (3.5-5.0); Albumin Globulin Ratio 1.5 (1.0-2.8); Alkaline Phosphatase 60 U/L (38-126); Aspartate Aminotransferase 43 IU/L (14-36); BUN Creatinine Ratio 30.8 (6-22); Bilirubin Total 0.3 mg/dL (0.2-1.3); Blood Urea Nitrogen 24 mg/dL (7-17); Calcium 9.2 mg/dL (8.4-10.2); Carbon Dioxide 26 mmol/L (22-32); Chloride 106 mmol/L (98-107); Creatine Kinase 129 U/L (30-135); Estimated Glomerular Filt Rate > 60 mL/min (>60); Globulin 2.9 g/dL (1.7-4.1); Glucose 85 mg/dL (80-110); HEMOLYSIS < 15 (0-50); Lipase 86 U/L (23-300); Magnesium 2.1 mg/dL (1.6-2.3); Potassium 3.7 mmol/L (3.4-5.1); Sodium 139 mmol/L (137-145); Total Protein 7.3 g/dL (6.3-8.2)
[2023-01-18 14:58] LABS: Troponin I < 0.012 ng/mL (0.01-0.034)
== END 2023-01-18 16:24 | disposition left against medical advice (07) ==
PROVIDERS: Emergency Provider Emergency Medicine; PCP Physician Assistant
DX: R07.9 Chest pain, unspecified (principal); R51.9 Headache, unspecified
CPT/HCPCS: 36415; 71045; 80053; 82550; 83690; 83735; 84484; 85025; 85610; 85730; 93005; 99283

== ENCOUNTER → 2023-03-10 07:55 | Outpatient (CLI) | payer OTHER, SELFPAY ==
--- NOTE | 2023-03-10 | DI.CT.S_ITS ---
PROCEDURE: CT SINUS SCREEN WO CON INDICATIONS: CHRONIC PANSINUSITIS TECHNIQUE: Noncontrast 3.0 mm axial images acquired from the frontal sinuses to the mid-sella, with coronal and sagittal reformats. For radiation dose reduction, the following was used: automated exposure control, adjustment of mA and/or kV according to patient size. COMPARISON: [facility], CT, SINUS WITHOUT CONTRAST, 11/29/2011, 13:50. FINDINGS: Image quality: Excellent. Maxillary Sinuses: No bony remodeling or destruction. Sinuses are clear. Ethmoid Air Cells: No bony remodeling or destruction. Sinuses are clear. Sphenoid Sinuses: No bony remodeling or destruction. Sinuses are clear. Frontal Sinuses: No bony remodeling or destruction. Sinuses are clear. Ostiomeatal Complexes: Ostiomeatal complexes are patent. No Dalia cells. Miscellaneous: Visualized intra-orbital contents are normal. No karla bullosa or paradoxical turbinate curvature. The septum is deviated to the left. Degenerative changes of the right temporomandibular joint. IMPRESSION: 1. No paranasal sinus disease. 2. Left of septal deviation. 3. There are calcifications in the subcutaneous tissues overlying the zygomatic arches bilaterally of uncertain etiology. Dictated by: Jose Webb M.D. on 03/10/2023 at 9:43 Approved by: Jose Webb M.D. on 03/10/2023 at 9:53
== END ==
PROVIDERS: PCP Physician Assistant; Referring Provider Physician Assistant; Visit Provider Physician Assistant
DX: J32.4 Chronic pansinusitis (principal); J34.2 Deviated nasal septum
CPT/HCPCS: 70486

== ENCOUNTER → 2024-01-31 14:15 | Outpatient (CLI) | payer OTHER, SELFPAY ==
--- NOTE | 2024-01-31 14:18 | DI.RAD.S_ITS ---
PROCEDURE: XR FOOT LT MIN 3V INDICATIONS: Achilles tendinitis, left leg TECHNIQUE: 3 views of the foot were acquired. COMPARISON: None. FINDINGS: Bones: No fractures or dislocations. No suspicious bony lesions. A moderate degree of calcific tendonitis is seen at the posterior heel is tendon insertion on the calcaneus. Soft tissues: No tibiotalar joint effusion. Achilles tendon appears normal. IMPRESSION: Calcific tendonitis at the Achilles tendon insertion. Dictated by: Ulises Alvarez M.D. on 01/31/2024 at 16:45 Approved by: Ulises Alvarez M.D. on 01/31/2024 at 16:46
== END ==
PROVIDERS: PCP Physician Assistant; Referring Provider Internal Medicine; Visit Provider Internal Medicine
DX: M76.62 Achilles tendinitis, left leg (principal)
CPT/HCPCS: 73630

== ENCOUNTER 2024-03-22 14:30 | Outpatient (RCR) | payer OTHER, SELFPAY ==
--- NOTE | 2024-03-12 15:04 | PT.OIE ---
Current Diagnoses Pain in left ankle and joints of left foot (03/12/24) Achilles tendinitis, left leg (03/12/24) Other abnormalities of gait and mobility (03/12/24) Past Medical History (Last Reviewed 03/13/22 @ 00:53 by Ashley Brower MD) Breathing-related sleep disorder Chronic headaches Excessive daytime sleepiness Insomnia Snoring Past Surgical History (Last Reviewed 03/13/22 @ 00:53 by Ashley Brower MD) History of bilateral salpingo-oophorectomy (BSO) (1995) Status post hysterectomy Visit Care Team Role Provider Type Clau Burden PA-C Family Provider Advanced Stranner Primary Care Provider Specialty: Medical Address: [address] [place] [address], [id number] Email: Elsa Dow MD Attending Provider Physician Referring Provider Specialty: Internal Medicine Address: [place], [address] Email: Physical Therapy Initial Evaluation PT-OP-A Visit Information Start: 03/12/24 12:46 Freq: Status: Active Protocol: Document 03/12/24 10:35 DCW (Rec: 03/12/24 12:50 DCW [id number]) Out-Patient Physical Therapy Visit Information Visit Information Visit Type Initial Evaluation Visit Start Time 10:35 Visit Stop Time 11:15 Visit Number 1 Number of SOCIAL SERVICES DESIGNEE Visits 0 Evaluation Information Evaluation Date 03/12/24 PT-OP-B Current Condition Start: 03/12/24 12:46 Freq: Status: Active Protocol: Document 03/12/24 10:35 DCW (Rec: 03/12/24 14:21 DCW [id number]) Current Condition History of Current Condition Onset Date One year history Current Complaints Moderate-severe pain in L Achilles tendon, calf History of Current Condition Pt is a 63 year old female presenting with a one year history of left calf and heel pain. Pt reports that she was hurrying up stairs wearing Birkenstocks, felt a pop, and experienced immediate pain and soreness in her heel. Ice helped, but pt has been struggling with ongoing pain for a full year now. Struggles most when wearing less supportive shoes, notes that sandals creates increased tightness in her calf, and during the night, she experiences a shoot pain from her heel up into her leg. Left calf is incredibly tender to light touch. Pt does note a reduction of pain when wearing her HOKA shoes, due to increased support and raised heel. Pt admits to increased leg pain during push-off phase of gait, which has resulted to changes in her gait pattern , and her left hip has now started to bother her. Treatment Goals Patient/Caregiver Goals Decrease leg/calf pain PT-OP-C Subjective Start: 03/12/24 12:46 Freq: Status: Active Protocol: Document 03/12/24 10:35 DCW (Rec: 03/12/24 12:51 DCW [id number]) OP-PT Subjective Patient Comments Patient Comments As long as I'm wearing my good shoes, it's feeling pretty good. Patient Reported Progress Same PT-OP-F Manual Assessment Start: 03/12/24 12:46 Freq: Status: Active Protocol: Document 03/12/24 10:35 DCW (Rec: 03/12/24 14:21 DCW [id number]) Manual Assessments Soft Tissue Assessment Soft Tissue Mobility Assessment Tenderness to palpation 4/4: Palpation not allowed along left calf. Tenderness to palpation 3/4: Wincing and withdraw along left Achilles insertion and heel PT-OP-G Mobility & Gait Start: 03/12/24 12:46 Freq: Status: Active Protocol: Document 03/12/24 10:35 DCW (Rec: 03/12/24 14:21 DCW [id number]) OP Gait Assessment Comments Gait Comments Without shoes on, pt rolls left foot onto lateral surface to avoid push-off from [place] Toe. Gait normalizes when wearing HOKAs. PT-OP-J Posture/Palpation/Skin Start: 03/12/24 14:12 Freq: Status: Active Protocol: Document 03/12/24 10:35 DCW (Rec: 03/12/24 14:24 DCW [id number]) Skin Assessment Circumference Measurement 3 Location Left Mid-Calf Measurement (Centimeters) 38.2 Comments R = 36.6 cm 2 Location Left Figure-8 Measurement (Centimeters) 50.5 Comments R = 50.5 cm 1 Location Left ankle Circumference Measurement (Centimeters) 21.8 Comments R = 22.0 cm PT-OP-K Range of Motion Start: 03/12/24 12:46 Freq: Status: Active Protocol: Document 03/12/24 10:35 DCW (Rec: 03/12/24 14:21 DCW [id number]) Ankle and Foot Goniometric Range of Motion Ankle and Foot Right Active Testing Position Sitting Dorsiflexion with Knee Flexed 15 Dorsiflexion with Knee Extended 5 Plantarflexion 55 Inversion 45 Eversion 30 Left Active Testing Position Sitting Dorsiflexion with Knee Flexed 15 Dorsiflexion with Knee Extended 5 Plantarflexion 50 Inversion 44 Eversion 29 PT-OP-Q Treatments Start: 03/12/24 12:46 Freq: Status: Active Protocol: Document 03/12/24 10:35 DCW (Rec: 03/12/24 12:50 DCW [id number]) Manual Therapy Treatment Taping Achilles Body Location L Achilles ->Calf Treatment Focus Y-strip Type of Tape Kinesio Tape PT-OP-T Assessment and Plan Start: 03/12/24 12:46 Freq: Status: Active Protocol: Document 03/12/24 10:35 DCW (Rec: 03/12/24 15:04 DCW [id number]) Physical Therapy Assessment Rehab Potential Rehabilitation Potential Fair Evaluation Complexity Number of Personal Factors/Comorbidities 1-2 Number of Body Systems Impaired 4 or More Clinical Presentation at Evaluation Evolving Impairments Impairments Activity Tolerance,Functional Activities,Functional Mobility ,Pain,Soft Tissue Mobility, Tone Goals Three Impairment Pt rolls onto lateral surface of left foot prior to push-off during gait Care Home Goal (LTG) Pt to exhibit gait WNL bilaterally to improve functional mobility and decreased compensatory gait strategies. LTG Duration 05/12/24 Two Impairment Pt exhibits left calf edema, with a mid-calf measurement of 1.6cm L>R Fox Raiser Goal (LTG) Pt to have mid-calf circumferential measurement left equal to right to exhibit decrease in LE edema LTG Duration 05/12/24 One Impairment Pt does not have an appropriate home exercise program Short Term Goal (STG) Pt to be independent and compliant with an appropriate HEP STG Duration 04/11/24 Assessment Summary Assessment Pt presents with signs and symptoms consistent with referring diagnosis. Increased edema and tenderness along Achilles insertion, as well as pain with stretch and during gait consistent with Dx of calcific tendonitis. Pt is, however, surprisingly sore along entirety of left calf with significant mid-calf edema for being one year out from initial injury. Pt may benefit from skilled therapy focusing on improving tone, functional mobility, gait training, decreasing tenderness to palpation, and pain control, however will likely also benefit from additional axial imaging to rule in/out further soft- tissue injury. Physical Therapy Plan Frequency and Duration Frequency of Treatment 2x/Week Plan of Care Start Date 03/12/24 Plan of Care End Date 05/12/24 Therapeutic Interventions Therapeutic Interventions Balance Training,Gait Training ,Home Exercise Program,Joint Mobilizations,Manual Therapy, Neuromuscular Re-education, Patient/Caregiver Education, Self-Care/Home Management,Soft Tissue Mobilization,Taping, Therapeutic Activities, Therapeutic Exercises Modalities Cold Pack/Ice Massage,Electric Stimulation,Hot Packs, Ultrasound Next Visit Focus/Plan Next Note Type Treatment Note Next Visit Plan Assess effectiveness of taping , calf stretching, gait training, STM
--- NOTE | 2024-03-12 15:06 | PT.OPPOC ---
Physical, Occupational & Speech Therapy At [facility] Current Diagnoses Pain in left ankle and joints of left foot (03/12/24) Achilles tendinitis, left leg (03/12/24) Other abnormalities of gait and mobility (03/12/24) Visit Care Team Role Provider Type Clau Burden PA-C Family Provider Advanced Broach Setter Primary Care Provider Specialty: Medical Address: [address] [place] [address], [place], [address] Email: Elsa Dow MD Attending Provider Physician Referring Provider Specialty: Internal Medicine Address: [place], [address] Email: Plan Of Care PT-OP-B Current Condition Start: 03/12/24 12:46 Freq: Status: Active Protocol: Document 03/12/24 10:35 DCW (Rec: 03/12/24 14:21 DCW [id number]) Current Condition History of Current Condition Onset Date One year history Current Complaints Moderate-severe pain in L Achilles tendon, calf History of Current Condition Pt is a 63 year old female presenting with a one year history of left calf and heel pain. Pt reports that she was hurrying up stairs wearing Birkenstocks, felt a pop, and experienced immediate pain and soreness in her heel. Ice helped, but pt has been struggling with ongoing pain for a full year now. Struggles most when wearing less supportive shoes, notes that sandals creates increased tightness in her calf, and during the night, she experiences a shoot pain from her heel up into her leg. Left calf is incredibly tender to light touch. Pt does note a reduction of pain when wearing her HOKA shoes, due to increased support and raised heel. Pt admits to increased leg pain during push-off phase of gait, which has resulted to changes in her gait pattern , and her left hip has now started to bother her. Treatment Goals Patient/Caregiver Goals Decrease leg/calf pain PT-OP-T Assessment and Plan Start: 03/12/24 12:46 Freq: Status: Active Protocol: Document 03/12/24 10:35 DCW (Rec: 03/12/24 15:04 [facility] [id number]) Physical Therapy Assessment Rehab Potential Rehabilitation Potential Fair Evaluation Complexity Number of Personal Factors/Comorbidities 1-2 Number of Body Systems Impaired 4 or More Clinical Presentation at Evaluation Evolving Impairments Impairments Activity Tolerance,Functional Activities,Functional Mobility ,Pain,Soft Tissue Mobility, Tone Goals Three Impairment Pt rolls onto lateral surface of left foot prior to push-off during gait Kitchen Work Supervisor Goal (LTG) Pt to exhibit gait WNL bilaterally to improve functional mobility and decreased compensatory gait strategies. LTG Duration 05/12/24 Two Impairment Pt exhibits left calf edema, with a mid-calf measurement of 1.6cm L>R Kitchen Work Supervisor Goal (LTG) Pt to have mid-calf circumferential measurement left equal to right to exhibit decrease in LE edema LTG Duration 05/12/24 One Impairment Pt does not have an appropriate home exercise program Short Term Goal (STG) Pt to be independent and compliant with an appropriate HEP STG Duration 04/11/24 Assessment Summary Assessment Pt presents with signs and symptoms consistent with referring diagnosis. Increased edema and tenderness along Achilles insertion, as well as pain with stretch and during gait consistent with Dx of calcific tendonitis. Pt is, however, surprisingly sore along entirety of left calf with significant mid-calf edema for being one year out from initial injury. Pt may benefit from skilled therapy focusing on improving tone, functional mobility, gait training, decreasing tenderness to palpation, and pain control, however will likely also benefit from additional axial imaging to rule in/out further soft- tissue injury. Physical Therapy Plan Frequency and Duration Frequency of Treatment 2x/Week Plan of Care Start Date 03/12/24 Plan of Care End Date 05/12/24 Therapeutic Interventions Therapeutic Interventions Balance Training,Gait Training ,Home Exercise Program,Joint Mobilizations,Manual Therapy, Neuromuscular Re-education, Patient/Caregiver Education, Self-Care/Home Management,Soft Tissue Mobilization,Taping, Therapeutic Activities, Therapeutic Exercises Modalities Cold Pack/Ice Massage,Electric Stimulation,Hot Packs, Ultrasound Next Visit Focus/Plan Next Note Type Treatment Note Next Visit Plan Assess effectiveness of taping , calf stretching, gait training, STM Plan of Care Dates Plan of Care Start Date 03/12/24 Plan of Care End Date 05/12/24 Electronically Signed by: Santos Coats, PT 03/12/24 3213 If you are in agreement with this Plan of Care, please return a signed and dated copy. I have reviewed this Plan of Care and certify that the skilled therapy services above are required to meet the patient?s needs. Physician Signature Date Printed Name and Credentials Clinical Instructor Signature Printed Name and Credentials
--- NOTE | 2024-03-14 12:39 | PT.OTN ---
Current Diagnoses Pain in left ankle and joints of left foot (03/14/24) Achilles tendinitis, left leg (03/14/24) Other abnormalities of gait and mobility (03/14/24) Physical Therapy Treatment Note PT-OP-A Visit Information Start: 03/12/24 12:46 Freq: Status: Active Protocol: Document 03/14/24 11:55 DCW (Rec: 03/14/24 12:39 DCW [id number]) Out-Patient Physical Therapy Visit Information Visit Information Visit Type Treatment Note Visit Start Time 11:15 Visit Stop Time 12:35 Visit Number 2 Number of CLERICAL PRODUCTION WORKER Visits 0 Evaluation Information Evaluation Date 03/12/24 PT-OP-B Current Condition Start: 03/12/24 12:46 Freq: Status: Active Protocol: Document 03/12/24 10:35 DCW (Rec: 03/12/24 14:21 DCW [id number]) Current Condition History of Current Condition Onset Date One year history Current Complaints Moderate-severe pain in L Achilles tendon, calf History of Current Condition Pt is a 63 year old female presenting with a one year history of left calf and heel pain. Pt reports that she was hurrying up stairs wearing Birkenstocks, felt a pop, and experienced immediate pain and soreness in her heel. Ice helped, but pt has been struggling with ongoing pain for a full year now. Struggles most when wearing less supportive shoes, notes that sandals creates increased tightness in her calf, and during the night, she experiences a shoot pain from her heel up into her leg. Left calf is incredibly tender to light touch. Pt does note a reduction of pain when wearing her HOKA shoes, due to increased support and raised heel. Pt admits to increased leg pain during push-off phase of gait, which has resulted to changes in her gait pattern , and her left hip has now started to bother her. Treatment Goals Patient/Caregiver Goals Decrease leg/calf pain PT-OP-C Subjective Start: 03/12/24 12:46 Freq: Status: Active Protocol: Document 03/14/24 11:55 DCW (Rec: 03/14/24 12:39 DCW [id number]) OP-PT Subjective Patient Comments Patient Comments Pt notes her calf was quite unhappy following her last visit. PT-OP-F Manual Assessment Start: 03/12/24 12:46 Freq: Status: Active Protocol: Document 03/12/24 10:35 DCW (Rec: 03/12/24 14:21 DCW [id number]) Manual Assessments Soft Tissue Assessment Soft Tissue Mobility Assessment Tenderness to palpation 4/4: Palpation not allowed along left calf. Tenderness to palpation 3/4: Wincing and withdraw along left Achilles insertion and heel PT-OP-G Mobility & Gait Start: 03/12/24 12:46 Freq: Status: Active Protocol: Document 03/12/24 10:35 DCW (Rec: 03/12/24 14:21 DCW [id number]) OP Gait Assessment Comments Gait Comments Without shoes on, pt rolls left foot onto lateral surface to avoid push-off from [place]. Gait normalizes when wearing HOKAs. PT-OP-J Posture/Palpation/Skin Start: 03/12/24 14:12 Freq: Status: Active Protocol: Document 03/12/24 10:35 DCW (Rec: 03/12/24 14:24 DCW [id number]) Skin Assessment Circumference Measurement 3 Location Left Mid-Calf Measurement (Centimeters) 38.2 Comments R = 36.6 cm 2 Location Left Figure-8 Measurement (Centimeters) 50.5 Comments R = 50.5 cm 1 Location Left ankle Circumference Measurement (Centimeters) 21.8 Comments R = 22.0 cm PT-OP-K Range of Motion Start: 03/12/24 12:46 Freq: Status: Active Protocol: Document 03/12/24 10:35 DCW (Rec: 03/12/24 14:21 DCW [id number]) Ankle and Foot Goniometric Range of Motion Ankle and Foot Right Active Testing Position Sitting Dorsiflexion with Knee Flexed 15 Dorsiflexion with Knee Extended 5 Plantarflexion 55 Inversion 45 Eversion 30 Left Active Testing Position Sitting Dorsiflexion with Knee Flexed 15 Dorsiflexion with Knee Extended 5 Plantarflexion 50 Inversion 44 Eversion 29 PT-OP-Q Treatments Start: 03/12/24 12:46 Freq: Status: Active Protocol: Document 03/14/24 11:55 DCW (Rec: 03/14/24 12:39 DCW [id number]) Therapeutic Exercises Sitting Exercises Towel Scrunch Sitting Exercise Name Towel Scrunch Side left Resistance 2# Short foot Sitting Exercise Name Short foot Side left [place] pick-up Sitting Exercise Name [place] Pick-up Side left Manual Therapy Treatment Taping Achilles Body Location L Achilles ->Calf Treatment Focus Y-strip Type of Tape Kinesio Tape PT-OP-R Modalities Start: 03/14/24 11:56 Freq: Status: Active Protocol: Document 03/14/24 11:55 DCW (Rec: 03/14/24 12:39 DCW [id number]) Ultrasound Therapy Treatment Left Lower Posterior Leg Patient Position Prone Coupling Medium Ultrasound Gel Applicator Size (cm2) 2 Frequency Setting (mHz) 1 Mode Setting Continuous Duty Cycle 100% Intensity Setting (w/cm2) 1 Comments Poor tolerance, stopped at 4 minutes due to pain PT-OP-T Assessment and Plan Start: 03/12/24 12:46 Freq: Status: Active Protocol: Document 03/14/24 11:55 DCW (Rec: 03/14/24 12:39 DCW [id number]) Physical Therapy Assessment Impairments Impairments Activity Tolerance,Functional Activities,Functional Mobility ,Pain,Soft Tissue Mobility, Tone Goals Three Impairment Pt rolls onto lateral surface of left foot prior to push-off during gait Senior Living Goal (LTG) Pt to exhibit gait WNL bilaterally to improve functional mobility and decreased compensatory gait strategies. LTG Duration 05/12/24 Two Impairment Pt exhibits left calf edema, with a mid-calf measurement of 1.6cm L>R Senior Living Goal (LTG) Pt to have mid-calf circumferential measurement left equal to right to exhibit decrease in LE edema LTG Duration 05/12/24 One Impairment Pt does not have an appropriate home exercise program Short Term Goal (STG) Pt to be independent and compliant with an appropriate HEP STG Duration 04/11/24 Assessment Summary Assessment Pt continues to be severely limited in all areas with pain in heel and calf. Cannot tolerate and manual therapy, had to stop US after 4 minutes due to increased pain with the light touch of the US head. At this point, pt would likely benefit from axial imaging, unable to tolerate much from PT. Physical Therapy Plan Frequency and Duration Frequency of Treatment 2x/Week Plan of Care Start Date 03/12/24 Plan of Care End Date 05/12/24 Therapeutic Interventions Therapeutic Interventions Balance Training,Gait Training ,Home Exercise Program,Joint Mobilizations,Manual Therapy, Neuromuscular Re-education, Patient/Caregiver Education, Self-Care/Home Management,Soft Tissue Mobilization,Taping, Therapeutic Activities, Therapeutic Exercises Modalities Cold Pack/Ice Massage,Electric Stimulation,Hot Packs, Ultrasound Next Visit Focus/Plan Next Note Type Treatment Note Next Visit Plan Assess effectiveness of taping , calf stretching, gait training, STM
--- NOTE | 2024-03-19 17:01 | PT.OTN ---
Current Diagnoses Pain in left ankle and joints of left foot (03/19/24) Achilles tendinitis, left leg (03/19/24) Other abnormalities of gait and mobility (03/19/24) Physical Therapy Treatment Note PT-OP-A Visit Information Start: 03/12/24 12:46 Freq: Status: Active Protocol: Document 03/19/24 13:10 NBM (Rec: 03/19/24 17:01 NBM [id number]) Out-Patient Physical Therapy Visit Information Visit Information Visit Type Treatment Note Visit Note shoes doffed throughout session. Visit Start Time 13:05 Visit Stop Time 13:55 Visit Number 3 Number of GOLD STAMPER Visits 1 Evaluation Information Evaluation Date 03/12/24 PT-OP-B Current Condition Start: 03/12/24 12:46 Freq: Status: Active Protocol: Document 03/12/24 10:35 DCW (Rec: 03/12/24 14:21 DCW [id number]) Current Condition History of Current Condition Onset Date One year history Current Complaints Moderate-severe pain in L Achilles tendon, calf History of Current Condition Pt is a 63 year old female presenting with a one year history of left calf and heel pain. Pt reports that she was hurrying up stairs wearing Birkenstocks, felt a pop, and experienced immediate pain and soreness in her heel. Ice helped, but pt has been struggling with ongoing pain for a full year now. Struggles most when wearing less supportive shoes, notes that sandals creates increased tightness in her calf, and during the night, she experiences a shoot pain from her heel up into her leg. Left calf is incredibly tender to light touch. Pt does note a reduction of pain when wearing her HOKA shoes, due to increased support and raised heel. Pt admits to increased leg pain during push-off phase of gait, which has resulted to changes in her gait pattern , and her left hip has now started to bother her. Treatment Goals Patient/Caregiver Goals Decrease leg/calf pain PT-OP-C Subjective Start: 03/12/24 12:46 Freq: Status: Active Protocol: Document 03/19/24 13:10 NBM (Rec: 03/19/24 17:01 NBM [id number]) OP-PT Subjective Patient Comments Patient Comments Tammi reports even the crimp on her thin socks hurt her leg. She uses a textured ball at home to massage bottom of foot and heel and heel area is more tender. She is waiting to hear back from PCP regarding request for further imaging. She thinks KT tape helped. Patient Reported Progress Same PT-OP-F Manual Assessment Start: 03/12/24 12:46 Freq: Status: Active Protocol: Document 03/12/24 10:35 DCW (Rec: 03/12/24 14:21 DCW [id number]) Manual Assessments Soft Tissue Assessment Soft Tissue Mobility Assessment Tenderness to palpation 4/4: Palpation not allowed along left calf. Tenderness to palpation 3/4: Wincing and withdraw along left Achilles insertion and heel PT-OP-G Mobility & Gait Start: 03/12/24 12:46 Freq: Status: Active Protocol: Document 03/12/24 10:35 DCW (Rec: 03/12/24 14:21 DCW [id number]) OP Gait Assessment Comments Gait Comments Without shoes on, pt rolls left foot onto lateral surface to avoid push-off from [place]. Gait normalizes when wearing HOKAs. PT-OP-J Posture/Palpation/Skin Start: 03/12/24 14:12 Freq: Status: Active Protocol: Document 03/12/24 10:35 DCW (Rec: 03/12/24 14:24 DCW [id number]) Skin Assessment Circumference Measurement 3 Location Left Mid-Calf Measurement (Centimeters) 38.2 Comments R = 36.6 cm 2 Location Left Figure-8 Measurement (Centimeters) 50.5 Comments R = 50.5 cm 1 Location Left ankle Circumference Measurement (Centimeters) 21.8 Comments R = 22.0 cm PT-OP-K Range of Motion Start: 03/12/24 12:46 Freq: Status: Active Protocol: Document 03/12/24 10:35 DCW (Rec: 03/12/24 14:21 DCW [id number]) Ankle and Foot Goniometric Range of Motion Ankle and Foot Right Active Testing Position Sitting Dorsiflexion with Knee Flexed 15 Dorsiflexion with Knee Extended 5 Plantarflexion 55 Inversion 45 Eversion 30 Left Active Testing Position Sitting Dorsiflexion with Knee Flexed 15 Dorsiflexion with Knee Extended 5 Plantarflexion 50 Inversion 44 Eversion 29 PT-OP-Q Treatments Start: 03/12/24 12:46 Freq: Status: Active Protocol: Document 03/19/24 13:10 NBM (Rec: 03/19/24 17:01 [facility] [id number]) Therapeutic Exercises Sitting Exercises stretch Sitting Exercise Name 1. soleus 2. gastrocnemius Side left Equipment Used strap Comments monitored for pain, pain 2/10 w gastroc, cues for breathwork Towel Scrunch Sitting Exercise Name Towel Scrunch Side left Resistance 2# end of towel Reps/Minutes x5 Short foot Sitting Exercise Name 1. seated 2. standing at wall Side left Reps/Minutes x20 Comments 1/10 pain seated increases to 4/10 in standing [place] pick-up Sitting Exercise Name [place] Pick-up Side left Reps/Minutes 2x20 ea Comments Inv and Ev Manual Therapy Treatment Consent Patient gave verbal consent for manual Yes treatment Taping Achilles Body Location L Achilles ->Calf Treatment Focus Y-strip Type of Tape Kinesio Tape Skin Inspection intact Comments instruction to remove for rash /irritation/redness or after 5 days. PT-OP-R Modalities Start: 03/14/24 11:56 Freq: Status: Active Protocol: Document 03/14/24 11:55 DCW (Rec: 03/14/24 12:39 DCW [id number]) Ultrasound Therapy Treatment Left Lower Posterior Leg Patient Position Prone Coupling Medium Ultrasound Gel Applicator Size (cm2) 2 Frequency Setting (mHz) 1 Mode Setting Continuous Duty Cycle 100% Intensity Setting (w/cm2) 1 Comments Poor tolerance, stopped at 4 minutes due to pain PT-OP-T Assessment and Plan Start: 03/12/24 12:46 Freq: Status: Active Protocol: Document 03/19/24 13:10 NB (Rec: 03/19/24 17:01 [facility] [id number]) Physical Therapy Assessment Goals Three Impairment Pt rolls onto lateral surface of left foot prior to push-off during gait Consulting Psychologist Goal (LTG) Pt to exhibit gait WNL bilaterally to improve functional mobility and decreased compensatory gait strategies. LTG Duration 05/12/24 Two Impairment Pt exhibits left calf edema, with a mid-calf measurement of 1.6cm L>R [place] Goal (LTG) Pt to have mid-calf circumferential measurement left equal to right to exhibit decrease in LE edema LTG Duration 05/12/24 One Impairment Pt does not have an appropriate home exercise program Short Term Goal (STG) Pt to be independent and compliant with an appropriate HEP STG Duration 04/11/24 Assessment Summary Assessment Pt presents without KT tape and with HOKAs. Manual therapy not attempted due to pt's inability to tolerate in previous sessions and current report that sock elastic pressure hurts. Treatment focus on foot intrinsics, stretching, and manual therapy . Tammi is able to perform foot intrinsic exercises in sitting with pain 1/10, but pain increases to 4/10 with arch raises in standing. She requires initial cues for breathwork, hold time and strap placement for soleus and gastrocnemius muscle stretching and reports pain with gastrocnemius stretch 2/ 10; she is cued to stretch in pain-free range. Achilles KT taping end of session w/ instruction to remove for rash /irritation/redness or after 5 days. Physical Therapy Plan Frequency and Duration Frequency of Treatment 2x/Week Plan of Care Start Date 03/12/24 Plan of Care End Date 05/12/24 Therapeutic Interventions Therapeutic Interventions Balance Training,Gait Training ,Home Exercise Program,Joint Mobilizations,Manual Therapy, Neuromuscular Re-education, Patient/Caregiver Education, Self-Care/Home Management,Soft Tissue Mobilization,Taping, Therapeutic Activities, Therapeutic Exercises Modalities Cold Pack/Ice Massage,Electric Stimulation,Hot Packs, Ultrasound Next Visit Focus/Plan Next Note Type Treatment Note Next Visit Plan Taping, calf stretching, gait training, STM
--- NOTE | 2024-08-13 16:37 | PT.OPDS ---
Current Diagnoses Pain in left ankle and joints of left foot (03/22/24) Achilles tendinitis, left leg (03/22/24) Other abnormalities of gait and mobility (03/22/24) Visit Care Team Role Provider Type Clau Burden PA-C Family Provider Advanced Wiring Mechanic Primary Care Provider Specialty: Medical Address: [address] [place] [address], [place], [address] Email: Elsa Dow MD Attending Provider Physician Referring Provider Specialty: Internal Medicine Address: [place], [address] Email: Visit Number Visit Number 4 Discharge Summary PT-OP-B Current Condition Start: 03/12/24 12:46 Freq: Status: Active Protocol: Document 03/12/24 10:35 DCW (Rec: 03/12/24 14:21 DCW [id number]) Current Condition History of Current Condition Onset Date One year history Current Complaints Moderate-severe pain in L Achilles tendon, calf History of Current Condition Pt is a 63 year old female presenting with a one year history of left calf and heel pain. Pt reports that she was hurrying up stairs wearing Birkenstocks, felt a pop, and experienced immediate pain and soreness in her heel. Ice helped, but pt has been struggling with ongoing pain for a full year now. Struggles most when wearing less supportive shoes, notes that sandals creates increased tightness in her calf, and during the night, she experiences a shoot pain from her heel up into her leg. Left calf is incredibly tender to light touch. Pt does note a reduction of pain when wearing her HOKA shoes, due to increased support and raised heel. Pt admits to increased leg pain during push-off phase of gait, which has resulted to changes in her gait pattern , and her left hip has now started to bother her. Treatment Goals Patient/Caregiver Goals Decrease leg/calf pain PT-OP-C Subjective Start: 03/12/24 12:46 Freq: Status: Active Protocol: Document 03/22/24 14:50 NBM (Rec: 03/22/24 15:28 NBM [id number]) OP-PT Subjective Patient Comments Patient Comments Pt reports she was very sore after last session, she thinks probably from standing ex at the wall. She hasn't done many home ex because of soreness and then she had colonoscopy yesterday so was out of it. I 'm sitll kind of foggy today. If she has foot turned a certain way in bed it hurts. I wish I knew what was going on with it, it drives me crazy . Going up and down stairs she has to go one at a time because it really hurts trying to go down normally. She put heat on it but not ice, she generally thinks heat feels better. She does epsom salt soak too and that always feels better. Patient Reported Progress Same PT-OP-F Manual Assessment Start: 03/12/24 12:46 Freq: Status: Active Protocol: Document 03/12/24 10:35 DCW (Rec: 03/12/24 14:21 DCW [id number]) Manual Assessments Soft Tissue Assessment Soft Tissue Mobility Assessment Tenderness to palpation 4/4: Palpation not allowed along left calf. Tenderness to palpation 3/4: Wincing and withdraw along left Achilles insertion and heel PT-OP-G Mobility & Gait Start: 03/12/24 12:46 Freq: Status: Active Protocol: Document 03/12/24 10:35 DCW (Rec: 03/12/24 14:21 DCW [id number]) OP Gait Assessment Comments Gait Comments Without shoes on, pt rolls left foot onto lateral surface to avoid push-off from [place]. Gait normalizes when wearing HOKAs. PT-OP-J Posture/Palpation/Skin Start: 03/12/24 14:12 Freq: Status: Active Protocol: Document 03/12/24 10:35 DCW (Rec: 03/12/24 14:24 DCW [id number]) Skin Assessment Circumference Measurement 3 Location Left Mid-Calf Measurement (Centimeters) 38.2 Comments R = 36.6 cm 2 Location Left Figure-8 Measurement (Centimeters) 50.5 Comments R = 50.5 cm 1 Location Left ankle Circumference Measurement (Centimeters) 21.8 Comments R = 22.0 cm PT-OP-K Range of Motion Start: 03/12/24 12:46 Freq: Status: Active Protocol: Document 03/12/24 10:35 DCW (Rec: 03/12/24 14:21 DCW [id number]) Ankle and Foot Goniometric Range of Motion Ankle and Foot Right Active Testing Position Sitting Dorsiflexion with Knee Flexed 15 Dorsiflexion with Knee Extended 5 Plantarflexion 55 Inversion 45 Eversion 30 Left Active Testing Position Sitting Dorsiflexion with Knee Flexed 15 Dorsiflexion with Knee Extended 5 Plantarflexion 50 Inversion 44 Eversion 29 PT-OP-T Assessment and Plan Start: 03/12/24 12:46 Freq: Status: Active Protocol: Document 08/13/24 16:37 DCW (Rec: 08/13/24 16:37 DC [id number]) Physical Therapy Assessment Assessment Summary Assessment Pt has not been seen for more than four months. POC has since . Pt will be discharged from skilled therapy at this time, and will require a new referral in order to return. Physical Therapy Plan Discharge Physical Therapy Discharge Reasons No Longer Attending PT
== END 2024-08-23 08:22 | disposition home or self-care (01) ==
LOC: PHYS 14:30
PROVIDERS: Family Provider Physician Assistant; PCP Physician Assistant; Referring Provider Internal Medicine; Visit Provider Internal Medicine
DX: M76.62 Achilles tendinitis, left leg (principal); R26.89 Other abnormalities of gait and mobility; M25.572 Pain in left ankle and joints of left foot
CPT/HCPCS: 97110; 97140; 97162

== ENCOUNTER → 2024-04-23 14:52 | Outpatient (CLI) | payer OTHER, SELFPAY ==
--- NOTE | 2024-04-23 14:53 | DI.MG.S_ITS ---
BILATERAL DIGITAL SCREENING MAMMOGRAM 3D/2D WITH CAD: 04/23/2024 CLINICAL: Routine screening. Family history of breast cancer. Comparison is made to exams dated: 01/24/2022 mammogram, 01/05/2022 mammogram, and 09/07/2017 mammogram - [facility]. The breasts are heterogeneously dense, which may obscure small masses (category c / 51-75% glandular tissue). Current study was also evaluated with a Computer Aided Detection (CAD) system. There is a benign cyst in both breasts. No significant masses, calcifications, or other findings are seen in either breast. There has been no significant interval change. IMPRESSION: BENIGN There is no mammographic evidence of malignancy. A 1 year screening mammogram is recommended. Based on the Tyrer Cuzick model (a risk assessment model) the patient's lifetime risk is 10.6% and her 10 year risk is 4.6%. According to the ACR, ACS, and NCCN guidelines, an annual breast MRI exam along with mammogram is recommended if the patient's lifetime risk is 20% or greater. This exam was interpreted at Station ID: [id number]. NOTE: For mammograms, a report in lay terms will be sent to the patient. Approximately 15% of breast malignancies will not be visualized mammographically. In the management of a palpable breast mass, a negative mammogram must not discourage biopsy of a clinically suspicious lesion. Electronically Signed By: Madison [email or web address]:04/24/2024 16:15:59 letter sent: Normal Exam ACR BI-RADS Category 2: Benign
== END ==
PROVIDERS: Family Provider Physician Assistant; PCP Physician Assistant; Referring Provider Physician Assistant; Visit Provider Physician Assistant
DX: Z12.31 Encounter for screening mammogram for malignant neoplasm of breast (principal); Z80.3 Family history of malignant neoplasm of breast; R92.333 Mammographic heterogeneous density, bilateral breasts
CPT/HCPCS: 77063; 77067

== ENCOUNTER → 2024-05-06 16:21 | Outpatient (CLI) | payer OTHER, SELFPAY ==
--- NOTE | 2024-05-06 16:23 | DI.MRI.S_ITS ---
PROCEDURE: MR ANKLE LT WO CON INDICATIONS: left ankle pain TECHNIQUE: Noncontrast sagittal T1 spin echo and T2 fast spin echo with fat saturation, axial proton density fast spin echo and T2 fast spin echo with fat saturation, coronal T1 spin echo and T2 fast spin echo with fat saturation through the ankle/hindfoot. COMPARISON: [facility], CR, XR FOOT LT MIN 3V, 01/31/2024, 14:20. FINDINGS: Image quality: Excellent Tendons: The posterior tibialis, flexor digitorum longus and flexor hallucis longus are unremarkable. The extensor tendon is unremarkable. Mild longitudinal split tear of the peroneal brevis. The peroneal longus is unremarkable. Mild tendinosis of the distal Achilles tendon, without tear. Mild subjacent marrow edema in the calcaneal tuberosity, reactive. Posterior calcaneal enthesophyte with marrow edema, representing enthesitis. Ligaments: The anterior and the posterior tibiofibular ligament are intact. The anterior talofibular ligament is slightly irregular, likely secondary to prior low-grade tear. The posterior talofibular ligament is intact. The calcaneofibular ligament is unremarkable. Mild sprain of the deep portion of the deltoid ligament. Sinus tarsi: No fibrosis Plantar fascia: Unremarkable Muscles: Normal in signal Bones: Please see above. No acute fracture. No significant tibiotalar or posterior subtalar effusion. IMPRESSION: 1. Longitudinal split tear of the peroneal brevis. 2. Mild tendinosis of the distal Achilles tendon, without tear. Posterior calcaneal enthesophyte with enthesitis and mild subjacent marrow edema in the calcaneal tuberosity. 3. Low-grade tear and sprain of the medial and lateral ankle ligaments. Dictated by: Tamy Tran M.D. on 05/07/2024 at 10:25 Approved by: Tamy Tran M.D. on 05/07/2024 at 10:33
== END ==
PROVIDERS: Family Provider Physician Assistant; PCP Physician Assistant; Referring Provider Physician Assistant; Visit Provider Physician Assistant
DX: S93.422A Sprain of deltoid ligament of left ankle, initial encounter (principal); S96.812A Strain of other specified muscles and tendons at ankle and foot level, left foot, initial encounter; M25.572 Pain in left ankle and joints of left foot; M77.32 Calcaneal spur, left foot
CPT/HCPCS: 73721

== ENCOUNTER → 2024-07-30 08:10 | Outpatient (CLI) | payer OTHER, SELFPAY ==
--- NOTE | 2024-07-30 08:11 | DI.US.S_ITS ---
PROCEDURE: US ABDOMEN LIMITED INDICATIONS: elevated LFTs TECHNIQUE: Real-time focused scanning was performed of the abdomen, with image documentation. COMPARISON: None. FINDINGS: Liver measures 12 centimeters. Slightly increased echogenicity. Gallbladder is not seen. CBD measures 8 millimeters. Pancreas is unremarkable. IMPRESSION: CBD is 8 millimeters, which is at the upper limit of normal allowing for cholecystectomy state. Slightly increased hepatic echogenicity is nonspecific, most commonly related steatosis and fibrofatty liver disease. Dictated by: Zafar Linares M.D. on 07/30/2024 at 13:33 Approved by: Zafar Linares M.D. on 07/30/2024 at 13:34
== END ==
PROVIDERS: Family Provider Physician Assistant; PCP Physician Assistant; Referring Provider Physician Assistant; Visit Provider Physician Assistant
DX: R79.89 Other specified abnormal findings of blood chemistry (principal)
CPT/HCPCS: 76705

== ENCOUNTER → 2024-09-04 08:53 | Outpatient (CLI) | payer OTHER, SELFPAY ==
--- NOTE | 2024-09-04 08:55 | DI.RAD.S_ITS ---
PROCEDURE: XR CERVICAL SPINE 4V OR 5V INDICATIONS: NECK PAIN TECHNIQUE: 5 views of the cervical spine acquired. COMPARISON: [facility], CR, XR CERVICAL SPINE 2V OR 3V, 01/21/2020, 8:32. FINDINGS: Status post C5-C6 and C6-C7 ACDF with intervertebral disc spacer placement. The vertebral body heights are preserved. Straightening of the cervical lordosis. Mild left-sided foraminal stenoses on the oblique views. No significant right-sided foraminal stenosis. The C1 and C2 masses are in symmetric alignment with the dens on the odontoid view. No prevertebral soft tissue edema. IMPRESSION: Status post C5-C6 and C6-C7 ACDF without hardware complication. Dictated by: Jonathan León M.D. on 09/04/2024 at 9:27 Approved by: Jonathan León M.D. on 09/04/2024 at 9:29
== END ==
LOC: RAD 08:54
PROVIDERS: Family Provider Physician Assistant; PCP Physician Assistant; Referring Provider Physical Medicine & Rehabilitation; Visit Provider Physical Medicine & Rehabilitation
DX: M54.2 Cervicalgia (principal); Z98.1 Arthrodesis status
CPT/HCPCS: 72050

== ENCOUNTER 2025-01-21 16:15 | Outpatient (RCR) | payer OTHER, SELFPAY ==
--- NOTE | 2024-10-15 17:00 | PT.OIE ---
Current Diagnoses Encounter for other orthopedic aftercare (10/15/24) Past Medical History (Last Reviewed 09/04/24 @ 10:55 by Codey Baptiste DO) Breathing-related sleep disorder Cervical fusion syndrome Cervical stenosis of spinal canal Chronic headaches Excessive daytime sleepiness Insomnia Lumbosacral spondylosis with radiculopathy Snoring Past Surgical History (Last Reviewed 09/04/24 @ 10:55 by Codey Baptiste DO) History of bilateral salpingo-oophorectomy (BSO) (1995) Status post hysterectomy Visit Care Team Role Provider Type Clau Burden PA-C Family Provider Advanced Physical Director Primary Care Provider Specialty: Medical Address: [address] [place] [address], [id number] Email: Ngoc Juan PA-C Attending Provider Non-Staff Referring Provider Specialty: Medical Address: [address] [place] [address], [id number] Email: Physical Therapy Initial Evaluation PT-OP-A Visit Information Start: 10/15/24 17:27 Freq: Status: Active Protocol: Document 10/15/24 16:15 DCW (Rec: 10/15/24 17:29 DCW [id number]) Out-Patient Physical Therapy Visit Information Visit Information Visit Type Initial Evaluation Visit Start Time 16:15 Visit Stop Time 17:00 Visit Number 1 Number of SURVEY RESEARCH TEACHER Visits 0 Evaluation Information Evaluation Date 10/15/24 PT-OP-B Current Condition Start: 10/15/24 17:27 Freq: Status: Active Protocol: Document 10/15/24 16:15 DCW (Rec: 10/16/24 10:20 DCW [id number]) Current Condition History of Current Condition Onset Date 08/16/24 Current Complaints Left Achilles insertional repair, calcaneal Matthew excision History of Current Condition Pt is a 63 year old female presenting eight weeks s/p left Achilles insertional repair, calcaneal Matthew excision, and posterior calcaneal spur excision. Pt had initially injured her leg more than one years ago, felt a pop while hurrying up a flight of stairs. Was struggling with activity, wearing less supportive shoes, and pain during gait. Trial of PT Sept of last year, minimal benefit. Pt finally obtained an MRI in April, was found to have a tear, and underwent surgical intervention 08/16/24. Pt wore a boot for 3 weeks post-op, has had multiple follow-ups with her surgeon, weaned off of crutches, and an x-ray on September 02 reportedly shows everything healing nicely. Pt has gotten to go for long walks around town on flat surfaces, but notes she pays for it afterward. Has been wearing HOKA sandals since her boot came off, due to pain with any pressure on the back of her heel. Feels there is some tenseness/tightness along her lateral ankle, notes she is more stiff and sore in the morning. Is really afraid of that first time I roll my ankle. Occasionally uses shower stool still to give her leg a break. As she has returned to walking, notes that she if finding she is getting a lot of pain in her posterior knees bilaterally. Also notes some significant hip flexor pain due to walking in the boot. Prior Treatments and Tests Ankle MRI: IMPRESSION: 1. Longitudinal split tear of the peroneal brevis. 2. Mild tendinosis of the distal Achilles tendon, without tear. Posterior calcaneal enthesophyte with enthesitis and mild subjacent marrow edema in the calcaneal tuberosity. 3. Low-grade tear and sprain of the medial and lateral ankle ligaments. per Tamy Tran M.D. on 05/07/2024 PT-OP-C Subjective Start: 10/15/24 17:27 Freq: Status: Active Protocol: Document 10/15/24 16:15 DCW (Rec: 10/16/24 10:20 [facility] [id number]) OP-PT Subjective Patient Comments Patient Comments I can't ride my bike, I can't run, and I can't wear regular shoes. I just want to go back to doing normal stuff. Patient Questionnaires Lower Extremity Functional Scale LEFS Score 39/80 = 48.75% LEFS Impairment 40 to 59% Impaired (Score 32- 47) PT-OP-F Manual Assessment Start: 10/15/24 17:27 Freq: Status: Active Protocol: Document 10/15/24 16:15 DCW (Rec: 10/16/24 10:20 DCW [id number]) Manual Assessments Soft Tissue Assessment Soft Tissue Mobility Assessment Tenderness to palpation 3/4: Wincing and withdraw along left calcaneous, left gastroc (lateral>medial) PT-OP-G Mobility & Gait Start: 10/15/24 17:27 Freq: Status: Active Protocol: Document 10/15/24 16:15 DCW (Rec: 10/16/24 10:20 DCW [id number]) OP Gait Assessment Gait Gait Assistance Required: Independent Assistive Devices Assistive Device None Gait Deviations General Gait Pattern Decreased Stride Length, Decreased Feet Clearance, Lateral Trunk Lean Factors Limiting Gait Function Factors Limiting Gait Function Decreased Strength,Limited Range of Motion,Pain Comments Gait Comments Pt exhibits a decreased right step length secondary to decreased stance time on her left foot. Circumduction of left foot due to limited dorsiflexion Stair Climbing Evaluation Technique/Endurance Stair Climbing Direction Ascend and Descend Stair Climbing Technique Step Over Step Comments Stair Climbing Comments During descent, unweights left leg using UEs on rails, early heel lift to decrease dorsiflexion. PT-OP-K Range of Motion Start: 10/15/24 17:27 Freq: Status: Active Protocol: Document 10/15/24 16:15 DCW (Rec: 10/16/24 10:20 DCW [id number]) Ankle and Foot Goniometric Range of Motion Ankle and Foot Left Active Ankle/Foot ROM WFL No Testing Position Sitting Plantarflexion 60 Inversion 30 Eversion 10 Comments Dorsiflexion with knee extended measured actively at -5? from neutral. Passively, able to get to neutral PT-OP-M Strength Start: 10/15/24 17:27 Freq: Status: Active Protocol: Document 10/15/24 16:15 DCW (Rec: 10/16/24 10:20 DCW [id number]) Ankle/Foot Strength Ankle and Foot Manual Muscle Testing Left Dorsiflexion (L4) 4 Good Plantarflexion (S1) 2+ Poor+ PT-OP-Q Treatments Start: 10/15/24 17:27 Freq: Status: Active Protocol: Document 10/15/24 16:15 DCW (Rec: 10/15/24 17:52 DCW [id number]) Therapeutic Exercises Standing Exercises Mini Squat Standing Exercise Name Mini-squat Side bilateral Calf stretch Standing Exercise Name Gentle calf stretch - straight knee lean Side bilateral PT-OP-T Assessment and Plan Start: 10/15/24 17:27 Freq: Status: Active Protocol: Document 10/15/24 16:15 DCW (Rec: 10/16/24 10:20 DCW [id number]) Physical Therapy Assessment Rehab Potential Rehabilitation Potential Good Evaluation Complexity Number of Personal Factors/Comorbidities 1-2 Number of Body Systems Impaired 4 or More Clinical Presentation at Evaluation Stable Goals Three Impairment Pt demonstrates MMT of 3-/5 on left plantarflexion Healthcare Business Analyst Goal (LTG) Pt to improve left Plantarflexion to at least 4-/ 5 in order to return to prior activities, such as bike riding. LTG Duration 12/15/24 Two Impairment Pt has difficulty descending stairs Healthcare Business Analyst Goal (LTG) Pt to demonstrate improved left passive dorsiflexion to > 15? in order to improve ability to descend stairs without restriction LTG Duration 12/15/24 One Impairment Pt does not have an appropriate home exercise program Short Term Goal (STG) Pt to be independent and complaint with an appropriate HEP STG Duration 11/14/24 Assessment Summary Assessment Pt presents as expected eight weeks s/p left Achilles insertional repair, calcaneal Matthew excision, and posterior calcaneal spur excision. Pt at this point has weaned off of crutches, and stopped using a walking boot. Still wearing bracing at all times. Discussed reducing brace use to longer walks or uneven surfaces. Pt doing well overall, but still limited with footwear due to pain with pressure at surgical area, only able to tolerate open heeled footwear. Pt should benefit from skilled therapy focusing on stretching/ROM, strengthening, balance and gait training, increasing activity tolerance. Physical Therapy Plan Frequency and Duration Frequency of Treatment 1-2x/week Plan of Care Start Date 10/15/24 Plan of Care End Date 12/15/24 Therapeutic Interventions Therapeutic Interventions Balance Training,Gait Training ,Home Exercise Program,Joint Mobilizations,Manual Therapy, Neuromuscular Re-education, Patient/Caregiver Education, Self-Care/Home Management,Soft Tissue Mobilization, Therapeutic Activities, Therapeutic Exercises Modalities Cold Pack/Ice Massage,Hot Packs Next Visit Focus/Plan Next Note Type Treatment Note Next Visit Plan Stretching, ankle strengthening, balance
--- NOTE | 2024-10-18 14:37 | PT.OTN ---
Current Diagnoses Encounter for other orthopedic aftercare (10/18/24) Physical Therapy Treatment Note PT-OP-A Visit Information Start: 10/15/24 17:27 Freq: Status: Active Protocol: Document 10/18/24 13:48 DCW (Rec: 10/18/24 14:37 DCW [id number]) Out-Patient Physical Therapy Visit Information Visit Information Visit Type Treatment Note Visit Start Time 13:48 Visit Stop Time 14:30 Visit Number 2 Number of INDEPENDENT DRIVER Visits 0 Evaluation Information Evaluation Date 10/15/24 PT-OP-B Current Condition Start: 10/15/24 17:27 Freq: Status: Active Protocol: Document 10/15/24 16:15 DCW (Rec: 10/16/24 10:20 DCW [id number]) Current Condition History of Current Condition Onset Date 08/16/24 Current Complaints Left Achilles insertional repair, calcaneal Matthew excision History of Current Condition Pt is a 63 year old female presenting eight weeks s/p left Achilles insertional repair, calcaneal Matthew excision, and posterior calcaneal spur excision. Pt had initially injured her leg more than one years ago, felt a pop while hurrying up a flight of stairs. Was struggling with activity, wearing less supportive shoes, and pain during gait. Trial of PT Sept of last year, minimal benefit. Pt finally obtained an MRI in April, was found to have a tear, and underwent surgical intervention 08/16/24. Pt wore a boot for 3 weeks post-op, has had multiple follow-ups with her surgeon, weaned off of crutches, and an x-ray on September 02 reportedly shows everything healing nicely. Pt has gotten to go for long walks around town on flat surfaces, but notes she pays for it afterward. Has been wearing HOKA sandals since her boot came off, due to pain with any pressure on the back of her heel. Feels there is some tenseness/tightness along her lateral ankle, notes she is more stiff and sore in the morning. Is really afraid of that first time I roll my ankle. Occasionally uses shower stool still to give her leg a break. As she has returned to walking, notes that she if finding she is getting a lot of pain in her posterior knees bilaterally. Also notes some significant hip flexor pain due to walking in the boot. Prior Treatments and Tests Ankle MRI: IMPRESSION: 1. Longitudinal split tear of the peroneal brevis. 2. Mild tendinosis of the distal Achilles tendon, without tear. Posterior calcaneal enthesophyte with enthesitis and mild subjacent marrow edema in the calcaneal tuberosity. 3. Low-grade tear and sprain of the medial and lateral ankle ligaments. per Tamy Tran M.D. on 05/07/2024 PT-OP-C Subjective Start: 10/15/24 17:27 Freq: Status: Active Protocol: Document 10/18/24 13:48 DCW (Rec: 10/18/24 14:37 DCW [id number]) OP-PT Subjective Patient Comments Patient Comments It was hurting a lot more after last time. PT-OP-F Manual Assessment Start: 10/15/24 17:27 Freq: Status: Active Protocol: Document 10/15/24 16:15 DCW (Rec: 10/16/24 10:20 DCW [id number]) Manual Assessments Soft Tissue Assessment Soft Tissue Mobility Assessment Tenderness to palpation 3/4: Wincing and withdraw along left calcaneous, left gastroc (lateral>medial) PT-OP-G Mobility & Gait Start: 10/15/24 17:27 Freq: Status: Active Protocol: Document 10/15/24 16:15 DCW (Rec: 10/16/24 10:20 DCW [id number]) OP Gait Assessment Gait Gait Assistance Required: Independent Assistive Devices Assistive Device None Gait Deviations General Gait Pattern Decreased Stride Length, Decreased Feet Clearance, Lateral Trunk Lean Factors Limiting Gait Function Factors Limiting Gait Function Decreased Strength,Limited Range of Motion,Pain Comments Gait Comments Pt exhibits a decreased right step length secondary to decreased stance time on her left foot. Circumduction of left foot due to limited dorsiflexion Stair Climbing Evaluation Technique/Endurance Stair Climbing Direction Ascend and Descend Stair Climbing Technique Step Over Step Comments Stair Climbing Comments During descent, unweights left leg using UEs on rails, early heel lift to decrease dorsiflexion. PT-OP-K Range of Motion Start: 10/15/24 17:27 Freq: Status: Active Protocol: Document 10/15/24 16:15 DCW (Rec: 10/16/24 10:20 DCW [id number]) Ankle and Foot Goniometric Range of Motion Ankle and Foot Left Active Ankle/Foot ROM WFL No Testing Position Sitting Plantarflexion 60 Inversion 30 Eversion 10 Comments Dorsiflexion with knee extended measured actively at -5? from neutral. Passively, able to get to neutral PT-OP-M Strength Start: 10/15/24 17:27 Freq: Status: Active Protocol: Document 10/15/24 16:15 DCW (Rec: 10/16/24 10:20 DCW [id number]) Ankle/Foot Strength Ankle and Foot Manual Muscle Testing Left Dorsiflexion (L4) 4 Good Plantarflexion (S1) 2+ Poor+ PT-OP-Q Treatments Start: 10/15/24 17:27 Freq: Status: Active Protocol: Document 10/18/24 13:48 DCW (Rec: 10/18/24 14:37 DCW [id number]) Cardio Equipment Recumbent Bicycle Duration (Minutes) 3 Resistance 1 Seat Position 5 Bicycle (Upright) Duration (Minutes) 4 Resistance 1 Seat Position 6 Therapeutic Exercises Supine Exercises Hip Flexor Stretch Supine Exercise Name Hip Flexor Stretch - Leg off table Side left Hamstring Stretch Supine Exercise Name Hamstring Stretch Side left Other Exercises Step Downs Other Exercise Name Step Downs Side left Equipment Used 4 step->2 step Manual Therapy Treatment Soft Tissue Mobilization Calf Body Location L Calf Mobilization Type Sustained Pressure Intensity/Depth Moderate Body Position Sitting Neuro Re-Education Treatment Balance Activities Tilt Board Details Tilt Board Comments DF/PF PT-OP-T Assessment and Plan Start: 10/15/24 17:27 Freq: Status: Active Protocol: Document 10/18/24 13:48 DCW (Rec: 10/18/24 14:37 DCW [id number]) Physical Therapy Assessment Goals Three Impairment Pt demonstrates MMT of 3-/5 on left plantarflexion [facility] Goal (LTG) Pt to improve left Plantarflexion to at least 4-/ 5 in order to return to prior activities, such as bike riding. LTG Duration 12/15/24 Two Impairment Pt has difficulty descending stairs [facility] Goal (LTG) Pt to demonstrate improved left passive dorsiflexion to > 15? in order to improve ability to descend stairs without restriction LTG Duration 12/15/24 One Impairment Pt does not have an appropriate home exercise program Short Term Goal (STG) Pt to be independent and complaint with an appropriate HEP STG Duration 11/14/24 Assessment Summary Assessment Pt continues to feel very tender with palpation of entire calf. Is showing some improvement with ROM, improved active DF from -5? to 5?. [place] very good on stationary bike. Agreeable to add 4-way ankle flexion at home with Lv 1 T-band if able to do without pain. Continue to work on improving pain, decreasing tone, strengthening, and increasing activity tolerance. Physical Therapy Plan Frequency and Duration Frequency of Treatment 1-2x/week Plan of Care Start Date 10/15/24 Plan of Care End Date 12/15/24 Therapeutic Interventions Therapeutic Interventions Balance Training,Gait Training ,Home Exercise Program,Joint Mobilizations,Manual Therapy, Neuromuscular Re-education, Patient/Caregiver Education, Self-Care/Home Management,Soft Tissue Mobilization, Therapeutic Activities, Therapeutic Exercises Modalities Cold Pack/Ice Massage,Hot Packs Next Visit Focus/Plan Next Note Type Treatment Note Next Visit Plan Stretching, ankle strengthening, balance
--- NOTE | 2024-10-22 13:43 | PT.OTN ---
Current Diagnoses Encounter for other orthopedic aftercare (10/22/24) Physical Therapy Treatment Note PT-OP-A Visit Information Start: 10/15/24 17:27 Freq: Status: Active Protocol: Document 10/22/24 13:00 DCW (Rec: 10/22/24 13:43 DCW [id number]) Out-Patient Physical Therapy Visit Information Visit Information Visit Type Treatment Note Visit Start Time 13:00 Visit Stop Time 13:45 Visit Number 3 Number of WHEAT WASHER Visits 0 Evaluation Information Evaluation Date 10/15/24 PT-OP-B Current Condition Start: 10/15/24 17:27 Freq: Status: Active Protocol: Document 10/15/24 16:15 DCW (Rec: 10/16/24 10:20 DCW [id number]) Current Condition History of Current Condition Onset Date 08/16/24 Current Complaints Left Achilles insertional repair, calcaneal Matthew excision History of Current Condition Pt is a 63 year old female presenting eight weeks s/p left Achilles insertional repair, calcaneal Matthew excision, and posterior calcaneal spur excision. Pt had initially injured her leg more than one years ago, felt a pop while hurrying up a flight of stairs. Was struggling with activity, wearing less supportive shoes, and pain during gait. Trial of PT Sept of last year, minimal benefit. Pt finally obtained an MRI in April, was found to have a tear, and underwent surgical intervention 08/16/24. Pt wore a boot for 3 weeks post-op, has had multiple follow-ups with her surgeon, weaned off of crutches, and an x-ray on September 02 reportedly shows everything healing nicely. Pt has gotten to go for long walks around town on flat surfaces, but notes she pays for it afterward. Has been wearing HOKA sandals since her boot came off, due to pain with any pressure on the back of her heel. Feels there is some tenseness/tightness along her lateral ankle, notes she is more stiff and sore in the morning. Is really afraid of that first time I roll my ankle. Occasionally uses shower stool still to give her leg a break. As she has returned to walking, notes that she if finding she is getting a lot of pain in her posterior knees bilaterally. Also notes some significant hip flexor pain due to walking in the boot. Prior Treatments and Tests Ankle MRI: IMPRESSION: 1. Longitudinal split tear of the peroneal brevis. 2. Mild tendinosis of the distal Achilles tendon, without tear. Posterior calcaneal enthesophyte with enthesitis and mild subjacent marrow edema in the calcaneal tuberosity. 3. Low-grade tear and sprain of the medial and lateral ankle ligaments. per Tamy Tran M.D. on 05/07/2024 PT-OP-C Subjective Start: 10/15/24 17:27 Freq: Status: Active Protocol: Document 10/22/24 13:00 DCW (Rec: 10/22/24 13:43 DCW [id number]) OP-PT Subjective Patient Comments Patient Comments At first it felt really good, and really stretched out, and so then I went for a walk, and that was a big mistake. PT-OP-F Manual Assessment Start: 10/15/24 17:27 Freq: Status: Active Protocol: Document 10/15/24 16:15 DCW (Rec: 10/16/24 10:20 DCW [id number]) Manual Assessments Soft Tissue Assessment Soft Tissue Mobility Assessment Tenderness to palpation 3/4: Wincing and withdraw along left calcaneous, left gastroc (lateral>medial) PT-OP-G Mobility & Gait Start: 10/15/24 17:27 Freq: Status: Active Protocol: Document 10/15/24 16:15 DCW (Rec: 10/16/24 10:20 DCW [id number]) OP Gait Assessment Gait Gait Assistance Required: Independent Assistive Devices Assistive Device None Gait Deviations General Gait Pattern Decreased Stride Length, Decreased Feet Clearance, Lateral Trunk Lean Factors Limiting Gait Function Factors Limiting Gait Function Decreased Strength,Limited Range of Motion,Pain Comments Gait Comments Pt exhibits a decreased right step length secondary to decreased stance time on her left foot. Circumduction of left foot due to limited dorsiflexion Stair Climbing Evaluation Technique/Endurance Stair Climbing Direction Ascend and Descend Stair Climbing Technique Step Over Step Comments Stair Climbing Comments During descent, unweights left leg using UEs on rails, early heel lift to decrease dorsiflexion. PT-OP-K Range of Motion Start: 10/15/24 17:27 Freq: Status: Active Protocol: Document 10/15/24 16:15 DCW (Rec: 10/16/24 10:20 DCW [id number]) Ankle and Foot Goniometric Range of Motion Ankle and Foot Left Active Ankle/Foot ROM WFL No Testing Position Sitting Plantarflexion 60 Inversion 30 Eversion 10 Comments Dorsiflexion with knee extended measured actively at -5? from neutral. Passively, able to get to neutral PT-OP-M Strength Start: 10/15/24 17:27 Freq: Status: Active Protocol: Document 10/15/24 16:15 DCW (Rec: 10/16/24 10:20 DCW [id number]) Ankle/Foot Strength Ankle and Foot Manual Muscle Testing Left Dorsiflexion (L4) 4 Good Plantarflexion (S1) 2+ Poor+ PT-OP-Q Treatments Start: 10/15/24 17:27 Freq: Status: Active Protocol: Document 10/22/24 13:00 DCW (Rec: 10/22/24 13:43 DCW [id number]) Cardio Equipment Bicycle (Upright) Duration (Minutes) 6 Resistance 4 Seat Position 6 Therapeutic Exercises Supine Exercises Hamstring Stretch Supine Exercise Name Hamstring Stretch Side left Standing Exercises BOSU Lunge Standing Exercise Name BOSU Lunge Side bilateral Calf stretch Standing Exercise Name Calf Stretch Side bilateral Equipment Used DAHLIA Comments Gastroc/Soleus Manual Therapy Treatment Consent Patient gave verbal consent for manual Yes treatment Soft Tissue Mobilization Calf Body Location L Calf Mobilization Type Sustained Pressure Intensity/Depth Moderate Body Position Sitting Neuro Re-Education Treatment Balance Activities Tilt Board Details Tilt Board Comments DF/PF PT-OP-T Assessment and Plan Start: 10/15/24 17:27 Freq: Status: Active Protocol: Document 10/22/24 13:00 DCW (Rec: 10/22/24 13:43 DCW [id number]) Physical Therapy Assessment Goals Three Impairment Pt demonstrates MMT of 3-/5 on left plantarflexion Half-Way Goal (LTG) Pt to improve left Plantarflexion to at least 4-/ 5 in order to return to prior activities, such as bike riding. LTG Duration 12/15/24 Two Impairment Pt has difficulty descending stairs Special Investigator Goal (LTG) Pt to demonstrate improved left passive dorsiflexion to > 15? in order to improve ability to descend stairs without restriction LTG Duration 12/15/24 One Impairment Pt does not have an appropriate home exercise program Short Term Goal (STG) Pt to be independent and complaint with an appropriate HEP STG Duration 11/14/24 Assessment Summary Assessment Pt progressing well, showing significant improvement in ankle dorsiflexion. Continue to focus on mobility, gait, and strengthening. Physical Therapy Plan Frequency and Duration Frequency of Treatment 1-2x/week Plan of Care Start Date 10/15/24 Plan of Care End Date 12/15/24 Therapeutic Interventions Therapeutic Interventions Balance Training,Gait Training ,Home Exercise Program,Joint Mobilizations,Manual Therapy, Neuromuscular Re-education, Patient/Caregiver Education, Self-Care/Home Management,Soft Tissue Mobilization, Therapeutic Activities, Therapeutic Exercises Modalities Cold Pack/Ice Massage,Hot Packs Next Visit Focus/Plan Next Note Type Treatment Note Next Visit Plan Stretching, ankle strengthening, balance
--- NOTE | 2024-10-29 17:10 | PT.OTN ---
Current Diagnoses Encounter for other orthopedic aftercare (10/29/24) Physical Therapy Treatment Note PT-OP-A Visit Information Start: 10/15/24 17:27 Freq: Status: Active Protocol: Document 10/29/24 11:35 NBM (Rec: 10/29/24 12:54 NBM Laptop) Out-Patient Physical Therapy Visit Information Visit Information Visit Type Treatment Note Visit Start Time 11:32 Visit Stop Time 12:22 Visit Number 4 Number of STRINGED INSTRUMENT ASSEMBLER Visits 1 PT-OP-B Current Condition Start: 10/15/24 17:27 Freq: Status: Active Protocol: Document 10/15/24 16:15 DCW (Rec: 10/16/24 10:20 DCW [id number]) Current Condition History of Current Condition Onset Date 08/16/24 Current Complaints Left Achilles insertional repair, calcaneal Matthew excision History of Current Condition Pt is a 63 year old female presenting eight weeks s/p left Achilles insertional repair, calcaneal Matthew excision, and posterior calcaneal spur excision. Pt had initially injured her leg more than one years ago, felt a pop while hurrying up a flight of stairs. Was struggling with activity, wearing less supportive shoes, and pain during gait. Trial of PT Sept of last year, minimal benefit. Pt finally obtained an MRI in April, was found to have a tear, and underwent surgical intervention 08/16/24. Pt wore a boot for 3 weeks post-op, has had multiple follow-ups with her surgeon, weaned off of crutches, and an x-ray on September 02 reportedly shows everything healing nicely. Pt has gotten to go for long walks around town on flat surfaces, but notes she pays for it afterward. Has been wearing HOKA sandals since her boot came off, due to pain with any pressure on the back of her heel. Feels there is some tenseness/tightness along her lateral ankle, notes she is more stiff and sore in the morning. Is really afraid of that first time I roll my ankle. Occasionally uses shower stool still to give her leg a break. As she has returned to walking, notes that she if finding she is getting a lot of pain in her posterior knees bilaterally. Also notes some significant hip flexor pain due to walking in the boot. Prior Treatments and Tests Ankle MRI: IMPRESSION: 1. Longitudinal split tear of the peroneal brevis. 2. Mild tendinosis of the distal Achilles tendon, without tear. Posterior calcaneal enthesophyte with enthesitis and mild subjacent marrow edema in the calcaneal tuberosity. 3. Low-grade tear and sprain of the medial and lateral ankle ligaments. nitza Tran M.D. on 05/07/2024 PT-OP-C Subjective Start: 10/15/24 17:27 Freq: Status: Active Protocol: Document 10/29/24 11:35 NBM (Rec: 10/29/24 12:54 NBM Laptop) OP-PT Subjective Patient Comments Patient Comments Tammi reports she had last appointment with ortho last and they were impressed with how fast she's progressed but that she's probably progressing a little faster than they want her to go. She's wearing orthopedic shoes today which help her with walking but for short time periods because the fabric at the heel rubs. She alternates them with ortho sandals that she switches to when it hurts a lot and she needs a break. Doctor advised her, Don't walk a mile one day and then think two miles is okay the next day. PT-OP-F Manual Assessment Start: 10/15/24 17:27 Freq: Status: Active Protocol: Document 10/15/24 16:15 DCW (Rec: 10/16/24 10:20 DCW [id number]) Manual Assessments Soft Tissue Assessment Soft Tissue Mobility Assessment Tenderness to palpation 3/4: Wincing and withdraw along left calcaneous, left gastroc (lateral>medial) PT-OP-G Mobility & Gait Start: 10/15/24 17:27 Freq: Status: Active Protocol: Document 10/15/24 16:15 DCW (Rec: 10/16/24 10:20 DCW [id number]) OP Gait Assessment Gait Gait Assistance Required: Independent Assistive Devices Assistive Device None Gait Deviations General Gait Pattern Decreased Stride Length, Decreased Feet Clearance, Lateral Trunk Lean Factors Limiting Gait Function Factors Limiting Gait Function Decreased Strength,Limited Range of Motion,Pain Comments Gait Comments Pt exhibits a decreased right step length secondary to decreased stance time on her left foot. Circumduction of left foot due to limited dorsiflexion Stair Climbing Evaluation Technique/Endurance Stair Climbing Direction Ascend and Descend Stair Climbing Technique Step Over Step Comments Stair Climbing Comments During descent, unweights left leg using UEs on rails, early heel lift to decrease dorsiflexion. PT-OP-K Range of Motion Start: 10/15/24 17:27 Freq: Status: Active Protocol: Document 10/15/24 16:15 DCW (Rec: 10/16/24 10:20 DCW [id number]) Ankle and Foot Goniometric Range of Motion Ankle and Foot Left Active Ankle/Foot ROM WFL No Testing Position Sitting Plantarflexion 60 Inversion 30 Eversion 10 Comments Dorsiflexion with knee extended measured actively at -5? from neutral. Passively, able to get to neutral PT-OP-M Strength Start: 10/15/24 17:27 Freq: Status: Active Protocol: Document 10/15/24 16:15 DCW (Rec: 10/16/24 10:20 DCW [id number]) Ankle/Foot Strength Ankle and Foot Manual Muscle Testing Left Dorsiflexion (L4) 4 Good Plantarflexion (S1) 2+ Poor+ PT-OP-Q Treatments Start: 10/15/24 17:27 Freq: Status: Active Protocol: Document 10/29/24 11:35 NBM (Rec: 10/29/24 12:54 NBM Laptop) Cardio Equipment Bicycle (Upright) Duration (Minutes) 6 Resistance 4 Seat Position 6 Therapeutic Exercises Supine Exercises Hamstring Stretch Side left Equipment Used /c strap Comments cues for knee extension, painfree range Sitting Exercises Hamstring stretch Sitting Exercise Name 1. Sitting EOB 2. Long sitting w/ strap Side left Equipment Used strap Reps/Minutes 30s ea Comments cues for hip hinge, positive feedback response Standing Exercises BOSU Lunge Standing Exercise Name BOSU Lunge Side left Calf stretch Standing Exercise Name 1. Calf Stretch 2. Tibialis ant. stretch Side bilateral Equipment Used lunge position at counter Comments Gastroc/Soleus Other Exercises Step Downs Other Exercise Name Step Downs Side bilateral Equipment Used 4 step Comments pain improves with repetition Therapeutic Activity Therapeutic Activity Heel raises Comments Pt demos excessive R weightbearing placing object in low cupboard with B heel raise, or completely into R SL stance with higher cupboard. She is able to demo small B heel raise with tactile cueing for increasing weightbearing into LLE. Manual Therapy Treatment Consent Patient gave verbal consent for manual Yes treatment Soft Tissue Mobilization Calf Body Location L Calf, Achilles t. scar, plantar fascia Mobilization Type Rolling,Strumming,Sustained Pressure Intensity/Depth Gentle, Moderate Body Position supine, prone Comments Also L. Tibialis Ant. Manual Techniques Desensitization Type around scar Body Location L Achilles t., scar Body Position Prone Comments w/ finger, washcloth. edu to pt for using cotton ball/tissue, cotton fabric, washcloth, asa as tolerated. Neuro Re-Education Treatment Balance Activities BOSU Details 1. DL Balance 2. gentle heel raises Surface dome Equipment rail prn Tilt Board Details Tilt Board Equipment // bars, UE prn, CGA at hips for weightshifting biofeedback Reps/Duration 4 min Comments DF/PF, EV/IV w/ focus into L weightbearing <> equal weightbearing Self-Care/Home Management Treatment Education Other Education Pt is educated on desensitization techniques around scar to improve tolerance to socks and orthopedic shoes, modifying activity to prevent overactivity, and use of cryotherapy and elevation for pain and swelling management. Ice cup massage w/ instruction for self-administration to L heel and ankle.. Added to HEP: hamstring stretch in sitting, and long- sitting or supine with strap - no HO provided. PT-OP-R Modalities Start: 10/29/24 16:44 Freq: Status: Active Protocol: Document 10/29/24 11:35 NBM (Rec: 10/29/24 16:45 NBM Laptop) Hot Pack/Cold Pack Treatment Ice Massage Location L heel and ankle Patient Position Sitting Patient Tolerance Good Comments 5 min, end of session PT-OP-T Assessment and Plan Start: 10/15/24 17:27 Freq: Status: Active Protocol: Document 10/29/24 11:35 NBM (Rec: 10/29/24 12:54 NBM Laptop) Physical Therapy Assessment Goals Three Impairment Pt demonstrates MMT of 3-/5 on left plantarflexion Prison Goal (LTG) Pt to improve left Plantarflexion to at least 4-/ 5 in order to return to prior activities, such as bike riding. LTG Duration 12/15/24 Two Impairment Pt has difficulty descending stairs Steamer Gum Candy Goal (LTG) Pt to demonstrate improved left passive dorsiflexion to > 15? in order to improve ability to descend stairs without restriction LTG Duration 12/15/24 One Impairment Pt does not have an appropriate home exercise program Short Term Goal (STG) Pt to be independent and complaint with an appropriate HEP STG Duration 11/14/24 Assessment Summary Assessment Tammi demonstrates improved weightbearing into LLE in standing and DL heel raises after manual w/ cueing and repetition. She presents with pain 3-4/10 start of session which increases to 6/10 end of session. Palpable tension to L Tibialis anterior and Gastrocnemius muscles improve with manual therapy. Tolerance to 4 step downs improves with repetition. She is educated on desensitization techniques around scar to improve tolerance to socks and orthopedic shoes, modifying activity to manage pain due to overactivity and consistent with self-reported ortho instruction, and use of cryotherapy and elevation for pain and swelling management. Ice cup massage to L heel and ankle end of session. End of session pt reports she will rest and may skip planned walk today. Added to HEP: hamstring stretch in sitting, and long-sitting or supine with strap - no HO provided. Physical Therapy Plan Frequency and Duration Frequency of Treatment 1-2x/week Plan of Care Start Date 10/15/24 Plan of Care End Date 12/15/24 Therapeutic Interventions Therapeutic Interventions Balance Training,Gait Training ,Home Exercise Program,Joint Mobilizations,Manual Therapy, Neuromuscular Re-education, Patient/Caregiver Education, Self-Care/Home Management,Soft Tissue Mobilization, Therapeutic Activities, Therapeutic Exercises Modalities Cold Pack/Ice Massage,Hot Packs Next Visit Focus/Plan Next Note Type Treatment Note Next Visit Plan Next: Consider Shuttle Recovery for LE strengthening including B heel raise, and calf stretching. Manual and Ice cup massage end of session . POC: Stretching, ankle strengthening, balance
--- NOTE | 2024-11-07 16:07 | PT.OTN ---
Current Diagnoses Encounter for other orthopedic aftercare (11/07/24) Physical Therapy Treatment Note PT-OP-A Visit Information Start: 10/15/24 17:27 Freq: Status: Active Protocol: Document 11/07/24 13:53 NBM (Rec: 11/07/24 16:05 NBM Laptop) Out-Patient Physical Therapy Visit Information Visit Information Visit Type Treatment Note Visit Start Time 13:50 Visit Stop Time 14:30 Visit Number 5 Number of RECREATION SUPERVISOR Visits 2 Evaluation Information Evaluation Date 10/15/24 PT-OP-B Current Condition Start: 10/15/24 17:27 Freq: Status: Active Protocol: Document 10/15/24 16:15 DCW (Rec: 10/16/24 10:20 DCW [id number]) Current Condition History of Current Condition Onset Date 08/16/24 Current Complaints Left Achilles insertional repair, calcaneal Matthew excision History of Current Condition Pt is a 63 year old female presenting eight weeks s/p left Achilles insertional repair, calcaneal Matthew excision, and posterior calcaneal spur excision. Pt had initially injured her leg more than one years ago, felt a pop while hurrying up a flight of stairs. Was struggling with activity, wearing less supportive shoes, and pain during gait. Trial of PT Sept of last year, minimal benefit. Pt finally obtained an MRI in April, was found to have a tear, and underwent surgical intervention 08/16/24. Pt wore a boot for 3 weeks post-op, has had multiple follow-ups with her surgeon, weaned off of crutches, and an x-ray on September 02 reportedly shows everything healing nicely. Pt has gotten to go for long walks around town on flat surfaces, but notes she pays for it afterward. Has been wearing HOKA sandals since her boot came off, due to pain with any pressure on the back of her heel. Feels there is some tenseness/tightness along her lateral ankle, notes she is more stiff and sore in the morning. Is really afraid of that first time I roll my ankle. Occasionally uses shower stool still to give her leg a break. As she has returned to walking, notes that she if finding she is getting a lot of pain in her posterior knees bilaterally. Also notes some significant hip flexor pain due to walking in the boot. Prior Treatments and Tests Ankle MRI: IMPRESSION: 1. Longitudinal split tear of the peroneal brevis. 2. Mild tendinosis of the distal Achilles tendon, without tear. Posterior calcaneal enthesophyte with enthesitis and mild subjacent marrow edema in the calcaneal tuberosity. 3. Low-grade tear and sprain of the medial and lateral ankle ligaments. per Tamy Tran M.D. on 05/07/2024 PT-OP-C Subjective Start: 10/15/24 17:27 Freq: Status: Active Protocol: Document 11/07/24 13:53 NBM (Rec: 11/07/24 16:05 NBM Laptop) OP-PT Subjective Patient Comments Patient Comments Tammi reports after she sits for awhile and gets up her foot is very very very stiff; she tries to keep it up on pillow to keep foot from pointing down and uses bands to pull it back while sitting. Two days ago she did a bunch of housework in socks or thin slippers and her feet hurt so bad by the end of the day. She iced after which helped. Last Monday she ended up dancing and didn't notice it started bleeding until she was back in the car and took her shoe off , and it was very very sore the next day. She iced at home . It hasn't bled since. She has a butterfly bandaid on it to protect it in her shoe. Her foot is getting more used to the ortho shoes and it didn't hurt as much to put them on today. She is using cotton ball for desensitization. PT-OP-F Manual Assessment Start: 10/15/24 17:27 Freq: Status: Active Protocol: Document 10/15/24 16:15 DCW (Rec: 10/16/24 10:20 DCW [id number]) Manual Assessments Soft Tissue Assessment Soft Tissue Mobility Assessment Tenderness to palpation 3/4: Wincing and withdraw along left calcaneous, left gastroc (lateral>medial) PT-OP-G Mobility & Gait Start: 10/15/24 17:27 Freq: Status: Active Protocol: Document 10/15/24 16:15 DCW (Rec: 10/16/24 10:20 DCW [id number]) OP Gait Assessment Gait Gait Assistance Required: Independent Assistive Devices Assistive Device None Gait Deviations General Gait Pattern Decreased Stride Length, Decreased Feet Clearance, Lateral Trunk Lean Factors Limiting Gait Function Factors Limiting Gait Function Decreased Strength,Limited Range of Motion,Pain Comments Gait Comments Pt exhibits a decreased right step length secondary to decreased stance time on her left foot. Circumduction of left foot due to limited dorsiflexion Stair Climbing Evaluation Technique/Endurance Stair Climbing Direction Ascend and Descend Stair Climbing Technique Step Over Step Comments Stair Climbing Comments During descent, unweights left leg using UEs on rails, early heel lift to decrease dorsiflexion. PT-OP-K Range of Motion Start: 10/15/24 17:27 Freq: Status: Active Protocol: Document 10/15/24 16:15 DCW (Rec: 10/16/24 10:20 DCW [id number]) Ankle and Foot Goniometric Range of Motion Ankle and Foot Left Active Ankle/Foot ROM WFL No Testing Position Sitting Plantarflexion 60 Inversion 30 Eversion 10 Comments Dorsiflexion with knee extended measured actively at -5? from neutral. Passively, able to get to neutral PT-OP-M Strength Start: 10/15/24 17:27 Freq: Status: Active Protocol: Document 10/15/24 16:15 DCW (Rec: 10/16/24 10:20 DCW [id number]) Ankle/Foot Strength Ankle and Foot Manual Muscle Testing Left Dorsiflexion (L4) 4 Good Plantarflexion (S1) 2+ Poor+ PT-OP-Q Treatments Start: 10/15/24 17:27 Freq: Status: Active Protocol: Document 11/07/24 13:53 NBM (Rec: 11/07/24 16:05 NBM Laptop) Cardio Equipment Bicycle (Upright) Duration (Minutes) 6 Resistance 4 Seat Position 6 Therapeutic Exercises Sitting Exercises Toe raise Sitting Exercise Name DF Side left Reps/Minutes x10 Comments cues for increased activation of Ext Hallucis Longus m. Heel raise Sitting Exercise Name PF Side left Reps/Minutes x5 Comments increased pain medial ankle Hamstring stretch Sitting Exercise Name 1. Sitting edge of chair 2. verbal review: Long sitting w/ strap Side left Equipment Used strap Reps/Minutes 30s ea Comments cues for hip hinge Manual Therapy Treatment Consent Patient gave verbal consent for manual Yes treatment Soft Tissue Mobilization Calf Body Location L Calf, Achilles t. scar, plantar fascia Mobilization Type Rolling,Strumming Intensity/Depth Gentle, Moderate Body Position Sitting Comments visual inspection of scar shows one area remaining centrally which is well- healing, no signs of infection observed; visual inspection confirmed by evaluating PT. Area of healing avoided. Also L Tibialis anterior. Manual Techniques Desensitization Type around scar- verbal review Body Location L Achilles t., scar Body Position Prone Comments edu to pt for using cotton ball/tissue, cotton fabric, washcloth, asa as tolerated. PT-OP-R Modalities Start: 10/29/24 16:44 Freq: Status: Active Protocol: Document 11/07/24 13:53 NBM (Rec: 11/07/24 16:05 NBM Laptop) Hot Pack/Cold Pack Treatment Ice Massage Location L heel and ankle Patient Position Sitting Patient Tolerance Good Comments 5 min, end of session PT-OP-T Assessment and Plan Start: 10/15/24 17:27 Freq: Status: Active Protocol: Document 11/07/24 13:53 NBM (Rec: 11/07/24 16:05 NBM Laptop) Physical Therapy Assessment Goals Three Impairment Pt demonstrates MMT of 3-/5 on left plantarflexion Information Technology Data Analyst Goal (LTG) Pt to improve left Plantarflexion to at least 4-/ 5 in order to return to prior activities, such as bike riding. LTG Duration 12/15/24 Two Impairment Pt has difficulty descending stairs Correction Goal (LTG) Pt to demonstrate improved left passive dorsiflexion to > 15? in order to improve ability to descend stairs without restriction LTG Duration 12/15/24 One Impairment Pt does not have an appropriate home exercise program Short Term Goal (STG) Pt to be independent and complaint with an appropriate HEP STG Duration 11/14/24 Assessment Summary Assessment Tammi's tolerance to soft tissue mobilization improves by end of session, and visual inspection of scar shows one area remaining centrally which is well-healing, no signs of infection observed; visual inspection confirmed by evaluating PT. For pain management after sitting in recliner for extended periods with foot elevated she is encouraged to perform seated hamstring/calf stretch with strap keeping heel stabilized on floor before standing and walking. Physical Therapy Plan Frequency and Duration Frequency of Treatment 1-2x/week Plan of Care Start Date 10/15/24 Plan of Care End Date 12/15/24 Therapeutic Interventions Therapeutic Interventions Balance Training,Gait Training ,Home Exercise Program,Joint Mobilizations,Manual Therapy, Neuromuscular Re-education, Patient/Caregiver Education, Self-Care/Home Management,Soft Tissue Mobilization, Therapeutic Activities, Therapeutic Exercises Modalities Cold Pack/Ice Massage,Hot Packs Next Visit Focus/Plan Next Note Type Treatment Note Next Visit Plan Next: Consider Shuttle Recovery for LE strengthening including B heel raise, and calf stretching. Manual and Ice cup massage end of session . POC: Stretching, ankle strengthening, balance
--- NOTE | 2024-11-14 13:01 | PT.OTN ---
Current Diagnoses Encounter for other orthopedic aftercare (11/14/24) Physical Therapy Treatment Note PT-OP-A Visit Information Start: 10/15/24 17:27 Freq: Status: Active Protocol: Document 11/14/24 12:20 DCW (Rec: 11/14/24 13:01 DCW [id number]) Out-Patient Physical Therapy Visit Information Visit Information Visit Type Treatment Note Visit Start Time 12:20 Visit Stop Time 13:00 Visit Number 6 Number of TRACTOR SWEEPER OPERATOR Visits 0 Evaluation Information Evaluation Date 10/15/24 PT-OP-B Current Condition Start: 10/15/24 17:27 Freq: Status: Active Protocol: Document 10/15/24 16:15 DCW (Rec: 10/16/24 10:20 DCW [id number]) Current Condition History of Current Condition Onset Date 08/16/24 Current Complaints Left Achilles insertional repair, calcaneal Matthew excision History of Current Condition Pt is a 63 year old female presenting eight weeks s/p left Achilles insertional repair, calcaneal Matthew excision, and posterior calcaneal spur excision. Pt had initially injured her leg more than one years ago, felt a pop while hurrying up a flight of stairs. Was struggling with activity, wearing less supportive shoes, and pain during gait. Trial of PT Sept of last year, minimal benefit. Pt finally obtained an MRI in April, was found to have a tear, and underwent surgical intervention 08/16/24. Pt wore a boot for 3 weeks post-op, has had multiple follow-ups with her surgeon, weaned off of crutches, and an x-ray on September 02 reportedly shows everything healing nicely. Pt has gotten to go for long walks around town on flat surfaces, but notes she pays for it afterward. Has been wearing HOKA sandals since her boot came off, due to pain with any pressure on the back of her heel. Feels there is some tenseness/tightness along her lateral ankle, notes she is more stiff and sore in the morning. Is really afraid of that first time I roll my ankle. Occasionally uses shower stool still to give her leg a break. As she has returned to walking, notes that she if finding she is getting a lot of pain in her posterior knees bilaterally. Also notes some significant hip flexor pain due to walking in the boot. Prior Treatments and Tests Ankle MRI: IMPRESSION: 1. Longitudinal split tear of the peroneal brevis. 2. Mild tendinosis of the distal Achilles tendon, without tear. Posterior calcaneal enthesophyte with enthesitis and mild subjacent marrow edema in the calcaneal tuberosity. 3. Low-grade tear and sprain of the medial and lateral ankle ligaments. per Tamy Tran M.D. on 05/07/2024 PT-OP-C Subjective Start: 10/15/24 17:27 Freq: Status: Active Protocol: Document 11/14/24 12:20 DCW (Rec: 11/14/24 13:01 DCW [id number]) OP-PT Subjective Patient Comments Patient Comments Some continued discomfort, but tolerating shoes better, able to go for longer walks. Does note increased pain when going for longer walks or spending too much time on her feet. PT-OP-F Manual Assessment Start: 10/15/24 17:27 Freq: Status: Active Protocol: Document 10/15/24 16:15 DCW (Rec: 10/16/24 10:20 DCW [id number]) Manual Assessments Soft Tissue Assessment Soft Tissue Mobility Assessment Tenderness to palpation 3/4: Wincing and withdraw along left calcaneous, left gastroc (lateral>medial) PT-OP-G Mobility & Gait Start: 10/15/24 17:27 Freq: Status: Active Protocol: Document 10/15/24 16:15 DCW (Rec: 10/16/24 10:20 DCW [id number]) OP Gait Assessment Gait Gait Assistance Required: Independent Assistive Devices Assistive Device None Gait Deviations General Gait Pattern Decreased Stride Length, Decreased Feet Clearance, Lateral Trunk Lean Factors Limiting Gait Function Factors Limiting Gait Function Decreased Strength,Limited Range of Motion,Pain Comments Gait Comments Pt exhibits a decreased right step length secondary to decreased stance time on her left foot. Circumduction of left foot due to limited dorsiflexion Stair Climbing Evaluation Technique/Endurance Stair Climbing Direction Ascend and Descend Stair Climbing Technique Step Over Step Comments Stair Climbing Comments During descent, unweights left leg using UEs on rails, early heel lift to decrease dorsiflexion. PT-OP-K Range of Motion Start: 10/15/24 17:27 Freq: Status: Active Protocol: Document 10/15/24 16:15 DCW (Rec: 10/16/24 10:20 DCW [id number]) Ankle and Foot Goniometric Range of Motion Ankle and Foot Left Active Ankle/Foot ROM WFL No Testing Position Sitting Plantarflexion 60 Inversion 30 Eversion 10 Comments Dorsiflexion with knee extended measured actively at -5? from neutral. Passively, able to get to neutral PT-OP-M Strength Start: 10/15/24 17:27 Freq: Status: Active Protocol: Document 10/15/24 16:15 DCW (Rec: 10/16/24 10:20 DCW [id number]) Ankle/Foot Strength Ankle and Foot Manual Muscle Testing Left Dorsiflexion (L4) 4 Good Plantarflexion (S1) 2+ Poor+ PT-OP-Q Treatments Start: 10/15/24 17:27 Freq: Status: Active Protocol: Document 11/14/24 12:20 DCW (Rec: 11/14/24 13:01 DCW [id number]) Cardio Equipment Bicycle (Upright) Duration (Minutes) 6 Resistance 4 Seat Position 6 Gym Equipment Shuttle Balance Red Details WBOS DF/PF, Staggered Therapeutic Exercises Standing Exercises BOSU Lunge Standing Exercise Name BOSU Lunge Side bilateral Calf stretch Standing Exercise Name Calf stretch Side bilateral Equipment Used DAHLIA Comments Gastroc/Soleus Manual Therapy Treatment Consent Patient gave verbal consent for manual Yes treatment Soft Tissue Mobilization Calf Body Location L Calf, Achilles t. scar, plantar fascia Mobilization Type Rolling,Strumming,Sustained Pressure Intensity/Depth Gentle, Moderate Body Position Prone Comments Also L. Tibialis Ant. PT-OP-R Modalities Start: 10/29/24 16:44 Freq: Status: Active Protocol: Document 11/07/24 13:53 NBM (Rec: 11/07/24 16:05 NBM Laptop) Hot Pack/Cold Pack Treatment Ice Massage Location L heel and ankle Patient Position Sitting Patient Tolerance Good Comments 5 min, end of session PT-OP-T Assessment and Plan Start: 10/15/24 17:27 Freq: Status: Active Protocol: Document 11/14/24 12:20 DCW (Rec: 11/14/24 13:01 DCW [id number]) Physical Therapy Assessment Goals Three Impairment Pt demonstrates MMT of 3-/5 on left plantarflexion Shank Boner Goal (LTG) Pt to improve left Plantarflexion to at least 4-/ 5 in order to return to prior activities, such as bike riding. LTG Duration 12/15/24 Two Impairment Pt has difficulty descending stairs Shank Boner Goal (LTG) Pt to demonstrate improved left passive dorsiflexion to > 15? in order to improve ability to descend stairs without restriction LTG Duration 12/15/24 One Impairment Pt does not have an appropriate home exercise program Short Term Goal (STG) Pt to be independent and complaint with an appropriate HEP STG Duration 11/14/24 Assessment Summary Assessment Pt making good progress overall, gait and activity tolerance continues to improve . Continues to be quite sensitive to STM, however is improving. Pt should benefit form continued focus on improving ankle mobility, STM, gait, activity tolerance, and desensitization Physical Therapy Plan Frequency and Duration Frequency of Treatment 1-2x/week Plan of Care Start Date 10/15/24 Plan of Care End Date 12/15/24 Therapeutic Interventions Therapeutic Interventions Balance Training,Gait Training ,Home Exercise Program,Joint Mobilizations,Manual Therapy, Neuromuscular Re-education, Patient/Caregiver Education, Self-Care/Home Management,Soft Tissue Mobilization, Therapeutic Activities, Therapeutic Exercises Modalities Cold Pack/Ice Massage,Hot Packs Next Visit Focus/Plan Next Note Type Treatment Note Next Visit Plan Next: Consider Shuttle Recovery for LE strengthening including B heel raise, and calf stretching. Manual and Ice cup massage end of session . POC: Stretching, ankle strengthening, balance
--- NOTE | 2024-12-13 15:16 | PT.OTN ---
Current Diagnoses Encounter for other orthopedic aftercare (12/13/24) Physical Therapy Treatment Note PT-OP-A Visit Information Start: 10/15/24 17:27 Freq: Status: Active Protocol: Document 12/13/24 14:30 DCW (Rec: 12/13/24 15:16 DCW [id number]) Out-Patient Physical Therapy Visit Information Visit Information Visit Type Progress Note Visit Start Time 14:30 Visit Stop Time 15:15 Visit Number 7 Number of STORE MANAGER Visits 0 Evaluation Information Evaluation Date 10/15/24 PT-OP-B Current Condition Start: 10/15/24 17:27 Freq: Status: Active Protocol: Document 10/15/24 16:15 DCW (Rec: 10/16/24 10:20 DCW [id number]) Current Condition History of Current Condition Onset Date 08/16/24 Current Complaints Left Achilles insertional repair, calcaneal Matthew excision History of Current Pt is a 63 year old female presenting eight weeks s/p Condition left Achilles insertional repair, calcaneal Matthew excision, and posterior calcaneal spur excision. Pt had initially injured her leg more than one years ago, felt a pop while hurrying up a flight of stairs. Was struggling with activity, wearing less supportive shoes , and pain during gait. Trial of PT Sept of last year, minimal benefit. Pt finally obtained an MRI in April, was found to have a tear, and underwent surgical intervention 08/16/24. Pt wore a boot for 3 weeks post-op, has had multiple follow-ups with her surgeon, weaned off of crutches, and an x-ray on September 02 reportedly shows everything healing nicely. Pt has gotten to go for long walks around town on flat surfaces, but notes she pays for it afterward. Has been wearing HOKA sandals since her boot came off, due to pain with any pressure on the back of her heel. Feels there is some tenseness/tightness along her lateral ankle, notes she is more stiff and sore in the morning. Is really afraid of that first time I roll my ankle. Occasionally uses shower stool still to give her leg a break. As she has returned to walking, notes that she if finding she is getting a lot of pain in her posterior knees bilaterally. Also notes some significant hip flexor pain due to walking in the boot. Prior Treatments and Ankle MRI: IMPRESSION: 1. Longitudinal split tear of Tests the peroneal brevis. 2. Mild tendinosis of the distal Achilles tendon, without tear. Posterior calcaneal enthesophyte with enthesitis and mild subjacent marrow edema in the calcaneal tuberosity. 3. Low-grade tear and sprain of the medial and lateral ankle ligaments. per Tamy Tran M.D. on 05/07/2024 PT-OP-C Subjective Start: 10/15/24 17:27 Freq: Status: Active Protocol: Document 12/13/24 14:30 DCW (Rec: 12/13/24 14:34 DCW [id number]) OP-PT Subjective Patient Comments Patient Comments Pt feeling better overall, wearing her normal Hokas, gets out walking regularly, but is still getting a lot of swelling through her foot. PT-OP-F Manual Assessment Start: 10/15/24 17:27 Freq: Status: Active Protocol: Document 12/13/24 14:30 DCW (Rec: 12/13/24 15:08 DCW [id number]) Manual Assessments Soft Tissue Assessment Soft Tissue Mobility Tenderness to palpation 2/4: Pain with wincing along Assessment left calcaneous, left gastroc PT-OP-G Mobility & Gait Start: 10/15/24 17:27 Freq: Status: Active Protocol: Document 12/13/24 14:30 DCW (Rec: 12/13/24 15:08 DCW [id number]) OP Gait Assessment Gait Gait Assistance Independent Required: Assistive Devices Assistive Device None Gait Deviations General Gait Pattern Decreased Stride Length,Decreased Feet Clearance Factors Limiting Gait Function Factors Limiting Decreased Strength,Limited Range of Motion,Pain Gait Function Comments Gait Comments Pt ends left stance phase early to limit amount of planter flexion her left foot goes into Stair Climbing Evaluation Evaluation Level of Assist On Independent Stairs Devices Stair Climbing None Assistive Devices Technique/Endurance Stair Climbing Ascend and Descend Direction Stair Climbing Step Over Step Technique Comments Stair Climbing Slightly early heel-off on left Comments PT-OP-K Range of Motion Start: 10/15/24 17:27 Freq: Status: Active Protocol: Document 12/13/24 14:30 DCW (Rec: 12/13/24 15:08 DCW [id number]) Ankle and Foot Goniometric Range of Motion Ankle and Foot Left Active Ankle/Foot ROM WFL No Testing Position Sitting Dorsiflexion with 10 Knee Flexed Dorsiflexion with 2 Knee Extended Plantarflexion 65 Inversion 45 Eversion 25 PT-OP-M Strength Start: 10/15/24 17:27 Freq: Status: Active Protocol: Document 12/13/24 14:30 DCW (Rec: 12/13/24 15:08 DCW [id number]) Ankle/Foot Strength Ankle and Foot Manual Muscle Testing Left Dorsiflexion (L4) 4+ Good+ Plantarflexion (S1) 3 Fair PT-OP-Q Treatments Start: 10/15/24 17:27 Freq: Status: Active Protocol: Document 12/13/24 14:30 DCW (Rec: 12/13/24 15:16 DCW [id number]) Cardio Equipment Bicycle (Upright) Duration (Minutes) 6 Resistance 4 Seat Position 6 Therapeutic Exercises Standing Exercises Heel Raises Standing Exercise Heel Raises Name Side bilateral Comments x4 Calf stretch Standing Exercise Calf stretch Name Side bilateral Equipment Used DAHLIA Comments Gastroc/Soleus Manual Therapy Treatment Consent Patient gave verbal Yes consent for manual treatment Soft Tissue Mobilization Calf Body Location L Calf, Achilles t. scar, plantar fascia Mobilization Type Rolling,Strumming,Sustained Pressure Intensity/Depth Gentle, Moderate Body Position Sitting PT-OP-R Modalities Start: 10/29/24 16:44 Freq: Status: Active Protocol: Document 11/07/24 13:53 NBM (Rec: 11/07/24 16:05 NBM Laptop) Hot Pack/Cold Pack Treatment Ice Massage Location L heel and ankle Patient Position Sitting Patient Tolerance Good Comments 5 min, end of session PT-OP-T Assessment and Plan Start: 10/15/24 17:27 Freq: Status: Active Protocol: Document 12/13/24 14:30 DCW (Rec: 12/13/24 15:16 DCW [id number]) Physical Therapy Assessment Impairments Impairments Edema,Gait,ROM,Strength,Tone Goals Three Impairment Pt demonstrates MMT of 3-/5 on left plantarflexion Ear Specialist Goal (LTG) Pt to improve left Plantarflexion to at least 4-/5 in order to return to prior activities, such as bike riding. LTG Duration 02/12/25 - Improving Two Impairment Pt has difficulty descending stairs Ear Specialist Goal (LTG) Pt to demonstrate improved left passive dorsiflexion to >15? in order to improve ability to descend stairs without restriction LTG Duration 02/12/25 - Improving One Impairment Pt does not have an appropriate home exercise program Short Term Goal (STG Pt to be independent and complaint with an appropriate ) HEP STG Duration 01/12/25 Assessment Summary Assessment Pt overall progressing well, does still exhibit tenderness, weakness, increased tone, edema, and slight limitations to ROM. Will likely benefit from continued skilled therapeutic intervention focusing on functional mobility, gait, ROM, muscle tone, and pain control. Physical Therapy Plan Frequency and Duration Frequency of 1-2x/week Treatment Plan of Care Start 12/13/24 Date Plan of Care End 02/12/25 Date Therapeutic Interventions Therapeutic Balance Training,Gait Training,Home Exercise Program, Interventions Joint Mobilizations,Manual Therapy,Neuromuscular Re- education,Patient/Caregiver Education,Self-Care/Home Management,Soft Tissue Mobilization,Therapeutic Activities,Therapeutic Exercises Modalities Cold Pack/Ice Massage,Hot Packs Next Visit Focus/Plan Next Note Type Treatment Note Next Visit Plan Next: Consider Shuttle Recovery for LE strengthening including B heel raise, and calf stretching. Manual and Ice cup massage end of session. POC: Stretching, ankle strengthening, balance
--- NOTE | 2024-12-18 12:53 | PT.OTN ---
Current Diagnoses Encounter for other orthopedic aftercare (12/18/24) Physical Therapy Treatment Note PT-OP-A Visit Information Start: 10/15/24 17:27 Freq: Status: Active Protocol: Document 12/18/24 11:37 NBM (Rec: 12/18/24 12:53 NBM Laptop) Out-Patient Physical Therapy Visit Information Visit Information Visit Type Treatment Note Visit Start Time 11:36 Visit Stop Time 12:20 Visit Number 8 Number of RESOURCE MANAGER FORESTER Visits 1 Evaluation Information Evaluation Date 10/15/24 PT-OP-B Current Condition Start: 10/15/24 17:27 Freq: Status: Active Protocol: Document 10/15/24 16:15 DCW (Rec: 10/16/24 10:20 DCW [id number]) Current Condition History of Current Condition Onset Date 08/16/24 Current Complaints Left Achilles insertional repair, calcaneal Matthew excision History of Current Pt is a 63 year old female presenting eight weeks s/p Condition left Achilles insertional repair, calcaneal Matthew excision, and posterior calcaneal spur excision. Pt had initially injured her leg more than one years ago, felt a pop while hurrying up a flight of stairs. Was struggling with activity, wearing less supportive shoes , and pain during gait. Trial of PT Sept of last year, minimal benefit. Pt finally obtained an MRI in April, was found to have a tear, and underwent surgical intervention 08/16/24. Pt wore a boot for 3 weeks post-op, has had multiple follow-ups with her surgeon, weaned off of crutches, and an x-ray on September 02 reportedly shows everything healing nicely. Pt has gotten to go for long walks around town on flat surfaces, but notes she pays for it afterward. Has been wearing HOKA sandals since her boot came off, due to pain with any pressure on the back of her heel. Feels there is some tenseness/tightness along her lateral ankle, notes she is more stiff and sore in the morning. Is really afraid of that first time I roll my ankle. Occasionally uses shower stool still to give her leg a break. As she has returned to walking, notes that she if finding she is getting a lot of pain in her posterior knees bilaterally. Also notes some significant hip flexor pain due to walking in the boot. Prior Treatments and Ankle MRI: IMPRESSION: 1. Longitudinal split tear of Tests the peroneal brevis. 2. Mild tendinosis of the distal Achilles tendon, without tear. Posterior calcaneal enthesophyte with enthesitis and mild subjacent marrow edema in the calcaneal tuberosity. 3. Low-grade tear and sprain of the medial and lateral ankle ligaments. per Tamy Tran M.D. on 05/07/2024 PT-OP-C Subjective Start: 10/15/24 17:27 Freq: Status: Active Protocol: Document 12/18/24 11:37 NBM (Rec: 12/18/24 12:53 NBM Laptop) OP-PT Subjective Patient Comments Patient Comments Tammi reports she hasn't slept well because she's being weaned off of her migraine medication and is grieving loss of friend. She is not as sensitive around scar now but there are still certain socks that she can't wear. Any walking for a mile or more and she hurts. PT-OP-F Manual Assessment Start: 10/15/24 17:27 Freq: Status: Active Protocol: Document 12/13/24 14:30 DCW (Rec: 12/13/24 15:08 DCW [id number]) Manual Assessments Soft Tissue Assessment Soft Tissue Mobility Tenderness to palpation 2/4: Pain with wincing along Assessment left calcaneous, left gastroc PT-OP-G Mobility & Gait Start: 10/15/24 17:27 Freq: Status: Active Protocol: Document 12/13/24 14:30 DCW (Rec: 12/13/24 15:08 DCW [id number]) OP Gait Assessment Gait Gait Assistance Independent Required: Assistive Devices Assistive Device None Gait Deviations General Gait Pattern Decreased Stride Length,Decreased Feet Clearance Factors Limiting Gait Function Factors Limiting Decreased Strength,Limited Range of Motion,Pain Gait Function Comments Gait Comments Pt ends left stance phase early to limit amount of planter flexion her left foot goes into Stair Climbing Evaluation Evaluation Level of Assist On Independent Stairs Devices Stair Climbing None Assistive Devices Technique/Endurance Stair Climbing Ascend and Descend Direction Stair Climbing Step Over Step Technique Comments Stair Climbing Slightly early heel-off on left Comments PT-OP-K Range of Motion Start: 10/15/24 17:27 Freq: Status: Active Protocol: Document 12/13/24 14:30 DCW (Rec: 12/13/24 15:08 DCW [id number]) Ankle and Foot Goniometric Range of Motion Ankle and Foot Left Active Ankle/Foot ROM WFL No Testing Position Sitting Dorsiflexion with 10 Knee Flexed Dorsiflexion with 2 Knee Extended Plantarflexion 65 Inversion 45 Eversion 25 PT-OP-M Strength Start: 10/15/24 17:27 Freq: Status: Active Protocol: Document 12/13/24 14:30 DCW (Rec: 12/13/24 15:08 DCW [id number]) Ankle/Foot Strength Ankle and Foot Manual Muscle Testing Left Dorsiflexion (L4) 4+ Good+ Plantarflexion (S1) 3 Fair PT-OP-Q Treatments Start: 10/15/24 17:27 Freq: Status: Active Protocol: Document 12/18/24 11:37 NBM (Rec: 12/18/24 12:53 NBM Laptop) Cardio Equipment Bicycle (Upright) Duration (Minutes) 6 Resistance 4 Seat Position 6 Gym Equipment Shuttle Recovery Bilateral Squats Resistance 50# Shuttle Recovery Stable,Unstable Platform Reps/Time Cues for LE alignment Therapeutic Exercises Supine Exercises Hamstring Stretch Side bilateral Equipment Used on Shuttle Recovery Reps/Minutes 30s ea Standing Exercises BOSU Lunge Standing Exercise BOSU Lunge Name Side bilateral Reps/Minutes x10 ea Mini Squat Standing Exercise Mini-squat Name Side bilateral Equipment Used handrail Reps/Minutes x10 Comments depth increases with reps Calf stretch Standing Exercise Calf stretch Name Side bilateral Equipment Used DAHLIA Reps/Minutes 45 hold ea Comments Gastroc/Soleus Manual Therapy Treatment Consent Patient gave verbal Yes consent for manual treatment Soft Tissue Mobilization Calf Body Location L Calf, Achilles t. scar, plantar fascia Mobilization Type Cross-Friction,Rolling,Strumming,Sustained Pressure Intensity/Depth Gentle, Moderate Body Position Sitting Comments STM w/ FM. gentle distal to proximal circular strokes to Achilles t. scar and calf. PT-OP-R Modalities Start: 10/29/24 16:44 Freq: Status: Active Protocol: Document 11/07/24 13:53 NBM (Rec: 11/07/24 16:05 NBM Laptop) Hot Pack/Cold Pack Treatment Ice Massage Location L heel and ankle Patient Position Sitting Patient Tolerance Good Comments 5 min, end of session PT-OP-T Assessment and Plan Start: 10/15/24 17:27 Freq: Status: Active Protocol: Document 12/18/24 11:37 NBM (Rec: 12/18/24 12:53 NBM Laptop) Physical Therapy Assessment Goals Three Impairment Pt demonstrates MMT of 3-/5 on left plantarflexion Receiver Dispatcher Goal (LTG) Pt to improve left Plantarflexion to at least 4-/5 in order to return to prior activities, such as bike riding. LTG Duration 02/12/25 - Improving Two Impairment Pt has difficulty descending stairs Assisted Goal (LTG) Pt to demonstrate improved left passive dorsiflexion to >15? in order to improve ability to descend stairs without restriction LTG Duration 02/12/25 - Improving One Impairment Pt does not have an appropriate home exercise program Short Term Goal (STG Pt to be independent and complaint with an appropriate ) HEP STG Duration 01/12/25 Assessment Summary Assessment Treatment focus on improving ankle mobility and manual therapy. Mini-squat depth increases with repetitions. Several areas of tension in plantar fascia improve slightly with STM. Physical Therapy Plan Frequency and Duration Frequency of 1-2x/week Treatment Plan of Care Start 12/13/24 Date Plan of Care End 02/12/25 Date Therapeutic Interventions Therapeutic Balance Training,Gait Training,Home Exercise Program, Interventions Joint Mobilizations,Manual Therapy,Neuromuscular Re- education,Patient/Caregiver Education,Self-Care/Home Management,Soft Tissue Mobilization,Therapeutic Activities,Therapeutic Exercises Modalities Cold Pack/Ice Massage,Hot Packs Next Visit Focus/Plan Next Note Type Treatment Note Next Visit Plan Next: Shuttle Recovery for LE strengthening including B heel raise, and calf stretching. Manual and Ice cup massage end of session. POC: Stretching, ankle strengthening, balance
--- NOTE | 2024-12-25 16:18 | PT.OTN ---
Current Diagnoses Encounter for other orthopedic aftercare (12/25/24) Physical Therapy Treatment Note PT-OP-A Visit Information Start: 10/15/24 17:27 Freq: Status: Active Protocol: Document 12/25/24 14:30 NBM (Rec: 01/02/25 16:18 NBM Laptop) Out-Patient Physical Therapy Visit Information Visit Information Visit Type Treatment Note Visit Start Time 14:30 Visit Stop Time 15:15 Visit Number 9 Number of CORPORATE TRAFFIC MANAGER Visits 2 PT-OP-B Current Condition Start: 10/15/24 17:27 Freq: Status: Active Protocol: Document 10/15/24 16:15 DCW (Rec: 10/16/24 10:20 DCW [id number]) Current Condition History of Current Condition Onset Date 08/16/24 Current Complaints Left Achilles insertional repair, calcaneal Matthew excision History of Current Pt is a 63 year old female presenting eight weeks s/p Condition left Achilles insertional repair, calcaneal Matthew excision, and posterior calcaneal spur excision. Pt had initially injured her leg more than one years ago, felt a pop while hurrying up a flight of stairs. Was struggling with activity, wearing less supportive shoes , and pain during gait. Trial of PT Sept of last year, minimal benefit. Pt finally obtained an MRI in April, was found to have a tear, and underwent surgical intervention 08/16/24. Pt wore a boot for 3 weeks post-op, has had multiple follow-ups with her surgeon, weaned off of crutches, and an x-ray on September 02 reportedly shows everything healing nicely. Pt has gotten to go for long walks around town on flat surfaces, but notes she pays for it afterward. Has been wearing HOKA sandals since her boot came off, due to pain with any pressure on the back of her heel. Feels there is some tenseness/tightness along her lateral ankle, notes she is more stiff and sore in the morning. Is really afraid of that first time I roll my ankle. Occasionally uses shower stool still to give her leg a break. As she has returned to walking, notes that she if finding she is getting a lot of pain in her posterior knees bilaterally. Also notes some significant hip flexor pain due to walking in the boot. Prior Treatments and Ankle MRI: IMPRESSION: 1. Longitudinal split tear of Tests the peroneal brevis. 2. Mild tendinosis of the distal Achilles tendon, without tear. Posterior calcaneal enthesophyte with enthesitis and mild subjacent marrow edema in the calcaneal tuberosity. 3. Low-grade tear and sprain of the medial and lateral ankle ligaments. nitza Tran M.D. on 05/07/2024 PT-OP-C Subjective Start: 10/15/24 17:27 Freq: Status: Active Protocol: Document 12/25/24 14:30 NBM (Rec: 01/02/25 16:18 NBM Laptop) OP-PT Subjective Patient Comments Patient Comments Tammi reports discomfort around heel with shoes and socks is improving. She wore flip flops and heel is more sore, and feels better when she wears supportive shoes. She had to take a pill for the pain yesterday which is currently 7-8/10. PT-OP-F Manual Assessment Start: 10/15/24 17:27 Freq: Status: Active Protocol: Document 12/13/24 14:30 DCW (Rec: 12/13/24 15:08 DCW [id number]) Manual Assessments Soft Tissue Assessment Soft Tissue Mobility Tenderness to palpation 2/4: Pain with wincing along Assessment left calcaneous, left gastroc PT-OP-G Mobility & Gait Start: 10/15/24 17:27 Freq: Status: Active Protocol: Document 12/13/24 14:30 DCW (Rec: 12/13/24 15:08 DCW [id number]) OP Gait Assessment Gait Gait Assistance Independent Required: Assistive Devices Assistive Device None Gait Deviations General Gait Pattern Decreased Stride Length,Decreased Feet Clearance Factors Limiting Gait Function Factors Limiting Decreased Strength,Limited Range of Motion,Pain Gait Function Comments Gait Comments Pt ends left stance phase early to limit amount of planter flexion her left foot goes into Stair Climbing Evaluation Evaluation Level of Assist On Independent Stairs Devices Stair Climbing None Assistive Devices Technique/Endurance Stair Climbing Ascend and Descend Direction Stair Climbing Step Over Step Technique Comments Stair Climbing Slightly early heel-off on left Comments PT-OP-K Range of Motion Start: 10/15/24 17:27 Freq: Status: Active Protocol: Document 12/13/24 14:30 DCW (Rec: 12/13/24 15:08 DCW [id number]) Ankle and Foot Goniometric Range of Motion Ankle and Foot Left Active Ankle/Foot ROM WFL No Testing Position Sitting Dorsiflexion with 10 Knee Flexed Dorsiflexion with 2 Knee Extended Plantarflexion 65 Inversion 45 Eversion 25 PT-OP-M Strength Start: 10/15/24 17:27 Freq: Status: Active Protocol: Document 12/13/24 14:30 DCW (Rec: 12/13/24 15:08 DCW [id number]) Ankle/Foot Strength Ankle and Foot Manual Muscle Testing Left Dorsiflexion (L4) 4+ Good+ Plantarflexion (S1) 3 Fair PT-OP-Q Treatments Start: 10/15/24 17:27 Freq: Status: Active Protocol: Document 12/25/24 14:30 NBM (Rec: 01/02/25 16:18 NBM Laptop) Therapeutic Exercises Standing Exercises Heel Raises Standing Exercise Heel Raises DL concentric> DL eccentric w/ L Name weightshift Side bilateral Equipment Used handrail Comments x10 Calf stretch Standing Exercise Calf stretch: lunge position Name Side bilateral Equipment Used handrail Reps/Minutes 45 hold ea Comments Gastroc/Soleus Manual Therapy Treatment Consent Patient gave verbal Yes consent for manual treatment Soft Tissue Mobilization Calf Body Location L Calf, Achilles t. scar, plantar fascia Mobilization Type Cross-Friction,Instrument Assisted,Rolling,Strumming, Sustained Pressure Intensity/Depth Moderate Body Position Sitting Comments STM w/ FM. gentle distal to proximal circular strokes to Achilles t. scar and calf. smallest cup used for scar tissue mobilization distally to proximally w/ positive feedback response. Self-Care/Home Management Treatment Education Other Education This CORPORATE TRAFFIC MANAGER observes a pattern from pt reports that she wears supportive footwear when in pain and once pain is improved she switches to other footwear with walking, then is sore afterwards or the next day. Pt is counseled to wear supportive footwear consistently, expresses understanding and states she has ordered more supportive footwear for summer. PT-OP-R Modalities Start: 10/29/24 16:44 Freq: Status: Active Protocol: Document 12/25/24 14:30 NBM (Rec: 01/02/25 16:18 NBM Laptop) Hot Pack/Cold Pack Treatment Ice Massage Location L heel and ankle Patient Position Sitting Patient Tolerance Good Comments 5 min, start of session PT-OP-T Assessment and Plan Start: 10/15/24 17:27 Freq: Status: Active Protocol: Document 12/25/24 14:30 NBM (Rec: 01/02/25 16:18 NBM Laptop) Physical Therapy Assessment Goals Three Impairment Pt demonstrates MMT of 3-/5 on left plantarflexion Conveyor Belt Installer Goal (LTG) Pt to improve left Plantarflexion to at least 4-/5 in order to return to prior activities, such as bike riding. LTG Duration 02/12/25 - Improving Two Impairment Pt has difficulty descending stairs Shelter Goal (LTG) Pt to demonstrate improved left passive dorsiflexion to >15? in order to improve ability to descend stairs without restriction LTG Duration 02/12/25 - Improving One Impairment Pt does not have an appropriate home exercise program Short Term Goal (STG Pt to be independent and complaint with an appropriate ) HEP STG Duration 01/12/25 Assessment Summary Assessment Treatment focus on pain management which improves from 7-8/10 to 5-6/10, and improving dorsiflexion range of motion with cupping to scar tissue around L Achilles t with observably improved range (measurements not taken) . This CORPORATE TRAFFIC MANAGER observes a pattern from pt reports that she wears supportive footwear when in pain and once pain is improved she switches to other footwear with walking, then is sore afterwards or the next day. Pt is counseled to wear supportive footwear consistently who expresses understanding, and states she has ordered more supportive footwear for summer. Physical Therapy Plan Frequency and Duration Frequency of 1-2x/week Treatment Plan of Care Start 12/13/24 Date Plan of Care End 02/12/25 Date Therapeutic Interventions Therapeutic Balance Training,Gait Training,Home Exercise Program, Interventions Joint Mobilizations,Manual Therapy,Neuromuscular Re- education,Patient/Caregiver Education,Self-Care/Home Management,Soft Tissue Mobilization,Therapeutic Activities,Therapeutic Exercises Modalities Cold Pack/Ice Massage,Hot Packs Next Visit Focus/Plan Next Note Type Treatment Note Next Visit Plan Next: Check if pt obtained new footwear. Shuttle Recovery for LE strengthening including B heel raise, and calf stretching. Manual (consider cupping) and Ice cup massage prn. POC: Stretching, ankle strengthening, balance
--- NOTE | 2025-01-06 13:01 | PT.OTN ---
Current Diagnoses Encounter for other orthopedic aftercare (01/06/25) Physical Therapy Treatment Note PT-OP-A Visit Information Start: 10/15/24 17:27 Freq: Status: Active Protocol: Document 01/06/25 12:18 DCW (Rec: 01/06/25 13:00 DCW [id number]) Out-Patient Physical Therapy Visit Information Visit Information Visit Type Treatment Note Visit Start Time 12:18 Visit Stop Time 13:00 Visit Number 10 Number of TRAFFIC COUNTER Visits 0 Evaluation Information Evaluation Date 10/15/24 PT-OP-B Current Condition Start: 10/15/24 17:27 Freq: Status: Active Protocol: Document 10/15/24 16:15 DCW (Rec: 10/16/24 10:20 DCW [id number]) Current Condition History of Current Condition Onset Date 08/16/24 Current Complaints Left Achilles insertional repair, calcaneal Matthew excision History of Current Pt is a 63 year old female presenting eight weeks s/p Condition left Achilles insertional repair, calcaneal Matthew excision, and posterior calcaneal spur excision. Pt had initially injured her leg more than one years ago, felt a pop while hurrying up a flight of stairs. Was struggling with activity, wearing less supportive shoes , and pain during gait. Trial of PT Sept of last year, minimal benefit. Pt finally obtained an MRI in April, was found to have a tear, and underwent surgical intervention 08/16/24. Pt wore a boot for 3 weeks post-op, has had multiple follow-ups with her surgeon, weaned off of crutches, and an x-ray on September 02 reportedly shows everything healing nicely. Pt has gotten to go for long walks around town on flat surfaces, but notes she pays for it afterward. Has been wearing HOKA sandals since her boot came off, due to pain with any pressure on the back of her heel. Feels there is some tenseness/tightness along her lateral ankle, notes she is more stiff and sore in the morning. Is really afraid of that first time I roll my ankle. Occasionally uses shower stool still to give her leg a break. As she has returned to walking, notes that she if finding she is getting a lot of pain in her posterior knees bilaterally. Also notes some significant hip flexor pain due to walking in the boot. Prior Treatments and Ankle MRI: IMPRESSION: 1. Longitudinal split tear of Tests the peroneal brevis. 2. Mild tendinosis of the distal Achilles tendon, without tear. Posterior calcaneal enthesophyte with enthesitis and mild subjacent marrow edema in the calcaneal tuberosity. 3. Low-grade tear and sprain of the medial and lateral ankle ligaments. per Tamy Tran M.D. on 05/07/2024 PT-OP-C Subjective Start: 10/15/24 17:27 Freq: Status: Active Protocol: Document 01/06/25 12:18 DCW (Rec: 01/06/25 13:00 DCW [id number]) OP-PT Subjective Patient Comments Patient Comments Pretty good so far today. Notes she did a little running, was a little sore. PT-OP-F Manual Assessment Start: 10/15/24 17:27 Freq: Status: Active Protocol: Document 12/13/24 14:30 DCW (Rec: 12/13/24 15:08 DCW [id number]) Manual Assessments Soft Tissue Assessment Soft Tissue Mobility Tenderness to palpation 2/4: Pain with wincing along Assessment left calcaneous, left gastroc PT-OP-G Mobility & Gait Start: 10/15/24 17:27 Freq: Status: Active Protocol: Document 12/13/24 14:30 DCW (Rec: 12/13/24 15:08 DCW [id number]) OP Gait Assessment Gait Gait Assistance Independent Required: Assistive Devices Assistive Device None Gait Deviations General Gait Pattern Decreased Stride Length,Decreased Feet Clearance Factors Limiting Gait Function Factors Limiting Decreased Strength,Limited Range of Motion,Pain Gait Function Comments Gait Comments Pt ends left stance phase early to limit amount of planter flexion her left foot goes into Stair Climbing Evaluation Evaluation Level of Assist On Independent Stairs Devices Stair Climbing None Assistive Devices Technique/Endurance Stair Climbing Ascend and Descend Direction Stair Climbing Step Over Step Technique Comments Stair Climbing Slightly early heel-off on left Comments PT-OP-K Range of Motion Start: 10/15/24 17:27 Freq: Status: Active Protocol: Document 12/13/24 14:30 DCW (Rec: 12/13/24 15:08 DCW [id number]) Ankle and Foot Goniometric Range of Motion Ankle and Foot Left Active Ankle/Foot ROM WFL No Testing Position Sitting Dorsiflexion with 10 Knee Flexed Dorsiflexion with 2 Knee Extended Plantarflexion 65 Inversion 45 Eversion 25 PT-OP-M Strength Start: 10/15/24 17:27 Freq: Status: Active Protocol: Document 12/13/24 14:30 DCW (Rec: 12/13/24 15:08 DCW [id number]) Ankle/Foot Strength Ankle and Foot Manual Muscle Testing Left Dorsiflexion (L4) 4+ Good+ Plantarflexion (S1) 3 Fair PT-OP-Q Treatments Start: 10/15/24 17:27 Freq: Status: Active Protocol: Document 01/06/25 12:18 DCW (Rec: 01/06/25 13:00 DCW [id number]) Gym Equipment Shuttle Balance Red Details WBOS DF/PF, Staggered, Lateral weight shift Therapeutic Exercises Standing Exercises BOSU Lunge Standing Exercise BOSU Lunge Name Side bilateral Reps/Minutes x10 ea Calf stretch Standing Exercise Calf stretch Name Side bilateral Equipment Used DAHLIA Reps/Minutes 45 hold ea Comments Gastroc/Soleus Manual Therapy Treatment Consent Patient gave verbal Yes consent for manual treatment Soft Tissue Mobilization Calf Body Location L Calf, Achilles t. scar, plantar fascia Mobilization Type Cross-Friction,Instrument Assisted,Rolling,Strumming, Sustained Pressure Intensity/Depth Moderate Body Position Sitting Comments STM w/ FM. gentle distal to proximal circular strokes to Achilles t. scar and calf. smallest cup used for scar tissue mobilization distally to proximally w/ positive feedback response. Neuro Re-Education Treatment Balance Activities Foam Details SLS Surface AirEx PT-OP-R Modalities Start: 10/29/24 16:44 Freq: Status: Active Protocol: Document 12/25/24 14:30 NBM (Rec: 01/02/25 16:18 NBM Laptop) Hot Pack/Cold Pack Treatment Ice Massage Location L heel and ankle Patient Position Sitting Patient Tolerance Good Comments 5 min, start of session PT-OP-T Assessment and Plan Start: 10/15/24 17:27 Freq: Status: Active Protocol: Document 01/06/25 12:18 DCW (Rec: 01/06/25 13:00 DCW [id number]) Physical Therapy Assessment Impairments Impairments Edema,Gait,ROM,Strength,Tone Goals Three Impairment Pt demonstrates MMT of 3-/5 on left plantarflexion Supervisor Rolling Room Goal (LTG) Pt to improve left Plantarflexion to at least 4-/5 in order to return to prior activities, such as bike riding. LTG Duration 02/12/25 - Improving Two Impairment Pt has difficulty descending stairs Supervisor Rolling Room Goal (LTG) Pt to demonstrate improved left passive dorsiflexion to >15? in order to improve ability to descend stairs without restriction LTG Duration 02/12/25 - Improving One Impairment Pt does not have an appropriate home exercise program Short Term Goal (STG Pt to be independent and complaint with an appropriate ) HEP STG Duration 01/12/25 Assessment Summary Assessment Pt making some good improvements overall, increasing activities with decreasing overall pain. Has been out walking more, attempted small amount of running. Was bust moving furniture and replacing nely this past weekend, but feels pretty good. Continue to focus on tone management, pain control, strengthening, balance, and gait. Physical Therapy Plan Frequency and Duration Frequency of 1-2x/week Treatment Plan of Care Start 12/13/24 Date Plan of Care End 02/12/25 Date Therapeutic Interventions Therapeutic Balance Training,Gait Training,Home Exercise Program, Interventions Joint Mobilizations,Manual Therapy,Neuromuscular Re- education,Patient/Caregiver Education,Self-Care/Home Management,Soft Tissue Mobilization,Therapeutic Activities,Therapeutic Exercises Modalities Cold Pack/Ice Massage,Hot Packs Next Visit Focus/Plan Next Note Type Treatment Note Next Visit Plan Next: Check if pt obtained new footwear. Shuttle Recovery for LE strengthening including B heel raise, and calf stretching. Manual (consider cupping) and Ice cup massage prn. POC: Stretching, ankle strengthening, balance
--- NOTE | 2025-01-09 12:14 | PT.OTN ---
Current Diagnoses Encounter for other orthopedic aftercare (01/09/25) Physical Therapy Treatment Note PT-OP-A Visit Information Start: 10/15/24 17:27 Freq: Status: Active Protocol: Document 01/09/25 11:30 DCW (Rec: 01/09/25 12:14 DCW [id number]) Out-Patient Physical Therapy Visit Information Visit Information Visit Type Treatment Note Visit Start Time 11:30 Visit Stop Time 12:15 Visit Number 11 Number of OUTSIDE EVENT SALES SPECIALIST Visits 0 Evaluation Information Evaluation Date 10/15/24 PT-OP-B Current Condition Start: 10/15/24 17:27 Freq: Status: Active Protocol: Document 10/15/24 16:15 DCW (Rec: 10/16/24 10:20 DCW [id number]) Current Condition History of Current Condition Onset Date 08/16/24 Current Complaints Left Achilles insertional repair, calcaneal Matthew excision History of Current Pt is a 63 year old female presenting eight weeks s/p Condition left Achilles insertional repair, calcaneal Matthew excision, and posterior calcaneal spur excision. Pt had initially injured her leg more than one years ago, felt a pop while hurrying up a flight of stairs. Was struggling with activity, wearing less supportive shoes , and pain during gait. Trial of PT Sept of last year, minimal benefit. Pt finally obtained an MRI in April, was found to have a tear, and underwent surgical intervention 08/16/24. Pt wore a boot for 3 weeks post-op, has had multiple follow-ups with her surgeon, weaned off of crutches, and an x-ray on September 02 reportedly shows everything healing nicely. Pt has gotten to go for long walks around town on flat surfaces, but notes she pays for it afterward. Has been wearing HOKA sandals since her boot came off, due to pain with any pressure on the back of her heel. Feels there is some tenseness/tightness along her lateral ankle, notes she is more stiff and sore in the morning. Is really afraid of that first time I roll my ankle. Occasionally uses shower stool still to give her leg a break. As she has returned to walking, notes that she if finding she is getting a lot of pain in her posterior knees bilaterally. Also notes some significant hip flexor pain due to walking in the boot. Prior Treatments and Ankle MRI: IMPRESSION: 1. Longitudinal split tear of Tests the peroneal brevis. 2. Mild tendinosis of the distal Achilles tendon, without tear. Posterior calcaneal enthesophyte with enthesitis and mild subjacent marrow edema in the calcaneal tuberosity. 3. Low-grade tear and sprain of the medial and lateral ankle ligaments. per Tamy Tran M.D. on 05/07/2024 PT-OP-C Subjective Start: 10/15/24 17:27 Freq: Status: Active Protocol: Document 01/09/25 11:30 DCW (Rec: 01/09/25 12:14 DCW [id number]) OP-PT Subjective Patient Comments Patient Comments Pt reports some bruising from STM last visit. Has been out walking more, overall feeling quite a bit better. Feels HOKAs continue to offer the most support/comfort. Inclines continue to bother her, but I'm able to do it. PT-OP-F Manual Assessment Start: 10/15/24 17:27 Freq: Status: Active Protocol: Document 12/13/24 14:30 DCW (Rec: 12/13/24 15:08 DCW [id number]) Manual Assessments Soft Tissue Assessment Soft Tissue Mobility Tenderness to palpation 2/4: Pain with wincing along Assessment left calcaneous, left gastroc PT-OP-G Mobility & Gait Start: 10/15/24 17:27 Freq: Status: Active Protocol: Document 12/13/24 14:30 DCW (Rec: 12/13/24 15:08 DCW [id number]) OP Gait Assessment Gait Gait Assistance Independent Required: Assistive Devices Assistive Device None Gait Deviations General Gait Pattern Decreased Stride Length,Decreased Feet Clearance Factors Limiting Gait Function Factors Limiting Decreased Strength,Limited Range of Motion,Pain Gait Function Comments Gait Comments Pt ends left stance phase early to limit amount of planter flexion her left foot goes into Stair Climbing Evaluation Evaluation Level of Assist On Independent Stairs Devices Stair Climbing None Assistive Devices Technique/Endurance Stair Climbing Ascend and Descend Direction Stair Climbing Step Over Step Technique Comments Stair Climbing Slightly early heel-off on left Comments PT-OP-K Range of Motion Start: 10/15/24 17:27 Freq: Status: Active Protocol: Document 12/13/24 14:30 DCW (Rec: 12/13/24 15:08 DCW [id number]) Ankle and Foot Goniometric Range of Motion Ankle and Foot Left Active Ankle/Foot ROM WFL No Testing Position Sitting Dorsiflexion with 10 Knee Flexed Dorsiflexion with 2 Knee Extended Plantarflexion 65 Inversion 45 Eversion 25 PT-OP-M Strength Start: 10/15/24 17:27 Freq: Status: Active Protocol: Document 12/13/24 14:30 DCW (Rec: 12/13/24 15:08 DCW [id number]) Ankle/Foot Strength Ankle and Foot Manual Muscle Testing Left Dorsiflexion (L4) 4+ Good+ Plantarflexion (S1) 3 Fair PT-OP-Q Treatments Start: 10/15/24 17:27 Freq: Status: Active Protocol: Document 01/09/25 11:30 DCW (Rec: 01/09/25 12:14 DCW [id number]) Gym Equipment Shuttle Recovery Bilateral Heel Raises Resistance 75# (three navy) -> 50# (two navy) Shuttle Balance Green Details Uneven (8) vs perturbations Comments Facing toward upward tilt Red Details WBOS DF/PF, Staggered Therapeutic Exercises Standing Exercises BOSU Lunge Standing Exercise BOSU Lunge Name Side bilateral Reps/Minutes x10 ea Calf stretch Standing Exercise Calf stretch Name Side bilateral Equipment Used DAHLIA Reps/Minutes 45 hold ea Comments Gastroc/Soleus Manual Therapy Treatment Consent Patient gave verbal Yes consent for manual treatment Soft Tissue Mobilization Calf Body Location L Calf, Achilles t. scar, plantar fascia Mobilization Type Cross-Friction,Instrument Assisted,Rolling,Strumming, Sustained Pressure Intensity/Depth Moderate Body Position Sitting Neuro Re-Education Treatment Balance Activities Foam Details SLS Surface AirEx PT-OP-R Modalities Start: 10/29/24 16:44 Freq: Status: Active Protocol: Document 12/25/24 14:30 NBM (Rec: 01/02/25 16:18 NBM Laptop) Hot Pack/Cold Pack Treatment Ice Massage Location L heel and ankle Patient Position Sitting Patient Tolerance Good Comments 5 min, start of session PT-OP-T Assessment and Plan Start: 10/15/24 17:27 Freq: Status: Active Protocol: Document 01/09/25 11:30 DCW (Rec: 01/09/25 12:14 DCW [id number]) Physical Therapy Assessment Impairments Impairments Edema,Gait,ROM,Strength,Tone Goals Three Impairment Pt demonstrates MMT of 3-/5 on left plantarflexion Jail Goal (LTG) Pt to improve left Plantarflexion to at least 4-/5 in order to return to prior activities, such as bike riding. LTG Duration 02/12/25 - Improving Two Impairment Pt has difficulty descending stairs Jail Goal (LTG) Pt to demonstrate improved left passive dorsiflexion to >15? in order to improve ability to descend stairs without restriction LTG Duration 02/12/25 - Improving One Impairment Pt does not have an appropriate home exercise program Short Term Goal (STG Pt to be independent and complaint with an appropriate ) HEP STG Duration 01/12/25 Assessment Summary Assessment Pt felt increased soreness and weakness by end of session. Noted at end of session really liking the cupping from two weeks ago, would like to try more. Ended with self-ice massage. Pt overall demonstrating improvement with functional mobility and increased walking. Physical Therapy Plan Frequency and Duration Frequency of 1-2x/week Treatment Plan of Care Start 12/13/24 Date Plan of Care End 02/12/25 Date Therapeutic Interventions Therapeutic Balance Training,Gait Training,Home Exercise Program, Interventions Joint Mobilizations,Manual Therapy,Neuromuscular Re- education,Patient/Caregiver Education,Self-Care/Home Management,Soft Tissue Mobilization,Therapeutic Activities,Therapeutic Exercises Modalities Cold Pack/Ice Massage,Hot Packs Next Visit Focus/Plan Next Note Type Treatment Note Next Visit Plan Next: Check if pt obtained new footwear. Shuttle Recovery for LE strengthening including B heel raise, and calf stretching. Manual (consider cupping) and Ice cup massage prn. POC: Stretching, ankle strengthening, balance
--- NOTE | 2025-01-14 12:58 | PT.OTN ---
Current Diagnoses Encounter for other orthopedic aftercare (01/14/25) Physical Therapy Treatment Note PT-OP-A Visit Information Start: 10/15/24 17:27 Freq: Status: Active Protocol: Document 01/14/25 12:15 DCW (Rec: 01/14/25 12:58 DCW [id number]) Out-Patient Physical Therapy Visit Information Visit Information Visit Type Treatment Note Visit Start Time 12:15 Visit Stop Time 13:00 Visit Number 12 Number of DIRECTOR OF RELIGIOUS ACTIVITIES Visits 0 Evaluation Information Evaluation Date 10/15/24 PT-OP-B Current Condition Start: 10/15/24 17:27 Freq: Status: Active Protocol: Document 10/15/24 16:15 DCW (Rec: 10/16/24 10:20 DCW [id number]) Current Condition History of Current Condition Onset Date 08/16/24 Current Complaints Left Achilles insertional repair, calcaneal Matthew excision History of Current Pt is a 63 year old female presenting eight weeks s/p Condition left Achilles insertional repair, calcaneal Matthew excision, and posterior calcaneal spur excision. Pt had initially injured her leg more than one years ago, felt a pop while hurrying up a flight of stairs. Was struggling with activity, wearing less supportive shoes , and pain during gait. Trial of PT Sept of last year, minimal benefit. Pt finally obtained an MRI in April, was found to have a tear, and underwent surgical intervention 08/16/24. Pt wore a boot for 3 weeks post-op, has had multiple follow-ups with her surgeon, weaned off of crutches, and an x-ray on September 02 reportedly shows everything healing nicely. Pt has gotten to go for long walks around town on flat surfaces, but notes she pays for it afterward. Has been wearing HOKA sandals since her boot came off, due to pain with any pressure on the back of her heel. Feels there is some tenseness/tightness along her lateral ankle, notes she is more stiff and sore in the morning. Is really afraid of that first time I roll my ankle. Occasionally uses shower stool still to give her leg a break. As she has returned to walking, notes that she if finding she is getting a lot of pain in her posterior knees bilaterally. Also notes some significant hip flexor pain due to walking in the boot. Prior Treatments and Ankle MRI: IMPRESSION: 1. Longitudinal split tear of Tests the peroneal brevis. 2. Mild tendinosis of the distal Achilles tendon, without tear. Posterior calcaneal enthesophyte with enthesitis and mild subjacent marrow edema in the calcaneal tuberosity. 3. Low-grade tear and sprain of the medial and lateral ankle ligaments. per Tamy Tran M.D. on 05/07/2024 PT-OP-C Subjective Start: 10/15/24 17:27 Freq: Status: Active Protocol: Document 01/14/25 12:15 DCW (Rec: 01/14/25 12:58 DCW [id number]) OP-PT Subjective Patient Comments Patient Comments Pt reports her foot is quite a bit more sore today, unsure of the cause. PT-OP-F Manual Assessment Start: 10/15/24 17:27 Freq: Status: Active Protocol: Document 12/13/24 14:30 DCW (Rec: 12/13/24 15:08 DCW [id number]) Manual Assessments Soft Tissue Assessment Soft Tissue Mobility Tenderness to palpation 2/4: Pain with wincing along Assessment left calcaneous, left gastroc PT-OP-G Mobility & Gait Start: 10/15/24 17:27 Freq: Status: Active Protocol: Document 12/13/24 14:30 DCW (Rec: 12/13/24 15:08 DCW [id number]) OP Gait Assessment Gait Gait Assistance Independent Required: Assistive Devices Assistive Device None Gait Deviations General Gait Pattern Decreased Stride Length,Decreased Feet Clearance Factors Limiting Gait Function Factors Limiting Decreased Strength,Limited Range of Motion,Pain Gait Function Comments Gait Comments Pt ends left stance phase early to limit amount of planter flexion her left foot goes into Stair Climbing Evaluation Evaluation Level of Assist On Independent Stairs Devices Stair Climbing None Assistive Devices Technique/Endurance Stair Climbing Ascend and Descend Direction Stair Climbing Step Over Step Technique Comments Stair Climbing Slightly early heel-off on left Comments PT-OP-K Range of Motion Start: 10/15/24 17:27 Freq: Status: Active Protocol: Document 12/13/24 14:30 DCW (Rec: 12/13/24 15:08 DCW [id number]) Ankle and Foot Goniometric Range of Motion Ankle and Foot Left Active Ankle/Foot ROM WFL No Testing Position Sitting Dorsiflexion with 10 Knee Flexed Dorsiflexion with 2 Knee Extended Plantarflexion 65 Inversion 45 Eversion 25 PT-OP-M Strength Start: 10/15/24 17:27 Freq: Status: Active Protocol: Document 12/13/24 14:30 DCW (Rec: 12/13/24 15:08 DCW [id number]) Ankle/Foot Strength Ankle and Foot Manual Muscle Testing Left Dorsiflexion (L4) 4+ Good+ Plantarflexion (S1) 3 Fair PT-OP-Q Treatments Start: 10/15/24 17:27 Freq: Status: Active Protocol: Document 01/14/25 12:15 DCW (Rec: 01/14/25 12:58 DCW [id number]) Gym Equipment Shuttle Balance Red Details WBOS DF/PF, Staggered Therapeutic Exercises Standing Exercises BOSU Lunge Standing Exercise BOSU Lunge Name Side bilateral Reps/Minutes x10 ea Calf stretch Standing Exercise Calf stretch Name Side bilateral Equipment Used DAHLIA Reps/Minutes 45 hold ea Comments Gastroc/Soleus Other Exercises Step-ups Other Exercise Name Step-ups Side left Equipment Used 6 step Manual Therapy Treatment Consent Patient gave verbal Yes consent for manual treatment Soft Tissue Mobilization Calf Body Location Achilles t. scar, plantar fascia Mobilization Type Cross-Friction,Instrument Assisted,Rolling,Strumming, Sustained Pressure Intensity/Depth Moderate Body Position Sitting Joint Mobilizations Great toe Joint L MTP, IP joint mobs Grade III Body Position Sitting Neuro Re-Education Treatment Balance Activities Foam Details SLS Surface AirEx PT-OP-R Modalities Start: 10/29/24 16:44 Freq: Status: Active Protocol: Document 12/25/24 14:30 NBM (Rec: 01/02/25 16:18 NBM Laptop) Hot Pack/Cold Pack Treatment Ice Massage Location L heel and ankle Patient Position Sitting Patient Tolerance Good Comments 5 min, start of session PT-OP-T Assessment and Plan Start: 10/15/24 17:27 Freq: Status: Active Protocol: Document 01/14/25 12:15 DCW (Rec: 01/14/25 12:58 DCW [id number]) Physical Therapy Assessment Impairments Impairments Edema,Gait,ROM,Strength,Tone Goals Three Impairment Pt demonstrates MMT of 3-/5 on left plantarflexion Detention Goal (LTG) Pt to improve left Plantarflexion to at least 4-/5 in order to return to prior activities, such as bike riding. LTG Duration 02/12/25 - Improving Two Impairment Pt has difficulty descending stairs Detention Goal (LTG) Pt to demonstrate improved left passive dorsiflexion to >15? in order to improve ability to descend stairs without restriction LTG Duration 02/12/25 - Improving One Impairment Pt does not have an appropriate home exercise program Short Term Goal (STG Pt to be independent and complaint with an appropriate ) HEP STG Duration 01/12/25 Assessment Summary Assessment Pt once again requested ending session with self-ice massage. Presenting today with increased left great toe pain. Did well with activity, however did note greater than usual soreness in great toe and plantar surface. Physical Therapy Plan Frequency and Duration Frequency of 1-2x/week Treatment Plan of Care Start 12/13/24 Date Plan of Care End 02/12/25 Date Therapeutic Interventions Therapeutic Balance Training,Gait Training,Home Exercise Program, Interventions Joint Mobilizations,Manual Therapy,Neuromuscular Re- education,Patient/Caregiver Education,Self-Care/Home Management,Soft Tissue Mobilization,Therapeutic Activities,Therapeutic Exercises Modalities Cold Pack/Ice Massage,Hot Packs Next Visit Focus/Plan Next Note Type Treatment Note Next Visit Plan Next: Shuttle Recovery for LE strengthening including B heel raise, and calf stretching. Manual (consider cupping) and Ice cup massage prn. POC: Stretching, ankle strengthening, balance
--- NOTE | 2025-01-16 12:14 | PT.OTN ---
Current Diagnoses Encounter for other orthopedic aftercare (01/16/25) Physical Therapy Treatment Note PT-OP-A Visit Information Start: 10/15/24 17:27 Freq: Status: Active Protocol: Document 01/16/25 11:30 DCW (Rec: 01/16/25 12:14 DCW [id number]) Out-Patient Physical Therapy Visit Information Visit Information Visit Type Treatment Note Visit Start Time 11:30 Visit Stop Time 12:15 Visit Number 13 Number of UNIT AIDE Visits 0 Evaluation Information Evaluation Date 10/15/24 PT-OP-B Current Condition Start: 10/15/24 17:27 Freq: Status: Active Protocol: Document 10/15/24 16:15 DCW (Rec: 10/16/24 10:20 DCW [id number]) Current Condition History of Current Condition Onset Date 08/16/24 Current Complaints Left Achilles insertional repair, calcaneal Matthew excision History of Current Pt is a 63 year old female presenting eight weeks s/p Condition left Achilles insertional repair, calcaneal Matthew excision, and posterior calcaneal spur excision. Pt had initially injured her leg more than one years ago, felt a pop while hurrying up a flight of stairs. Was struggling with activity, wearing less supportive shoes , and pain during gait. Trial of PT Sept of last year, minimal benefit. Pt finally obtained an MRI in April, was found to have a tear, and underwent surgical intervention 08/16/24. Pt wore a boot for 3 weeks post-op, has had multiple follow-ups with her surgeon, weaned off of crutches, and an x-ray on September 02 reportedly shows everything healing nicely. Pt has gotten to go for long walks around town on flat surfaces, but notes she pays for it afterward. Has been wearing HOKA sandals since her boot came off, due to pain with any pressure on the back of her heel. Feels there is some tenseness/tightness along her lateral ankle, notes she is more stiff and sore in the morning. Is really afraid of that first time I roll my ankle. Occasionally uses shower stool still to give her leg a break. As she has returned to walking, notes that she if finding she is getting a lot of pain in her posterior knees bilaterally. Also notes some significant hip flexor pain due to walking in the boot. Prior Treatments and Ankle MRI: IMPRESSION: 1. Longitudinal split tear of Tests the peroneal brevis. 2. Mild tendinosis of the distal Achilles tendon, without tear. Posterior calcaneal enthesophyte with enthesitis and mild subjacent marrow edema in the calcaneal tuberosity. 3. Low-grade tear and sprain of the medial and lateral ankle ligaments. per Tamy Tran M.D. on 05/07/2024 PT-OP-C Subjective Start: 10/15/24 17:27 Freq: Status: Active Protocol: Document 01/16/25 11:30 DCW (Rec: 01/16/25 12:14 DCW [id number]) OP-PT Subjective Patient Comments Patient Comments Pt reports she had to drive down to [place] yesterday. Reports typically has a lot of discomfort when seated in the car for a few hours, but was able to keep it moving the whole time, and it wasn't too bad. PT-OP-F Manual Assessment Start: 10/15/24 17:27 Freq: Status: Active Protocol: Document 12/13/24 14:30 DCW (Rec: 12/13/24 15:08 DCW [id number]) Manual Assessments Soft Tissue Assessment Soft Tissue Mobility Tenderness to palpation 2/4: Pain with wincing along Assessment left calcaneous, left gastroc PT-OP-G Mobility & Gait Start: 10/15/24 17:27 Freq: Status: Active Protocol: Document 12/13/24 14:30 DCW (Rec: 12/13/24 15:08 DCW [id number]) OP Gait Assessment Gait Gait Assistance Independent Required: Assistive Devices Assistive Device None Gait Deviations General Gait Pattern Decreased Stride Length,Decreased Feet Clearance Factors Limiting Gait Function Factors Limiting Decreased Strength,Limited Range of Motion,Pain Gait Function Comments Gait Comments Pt ends left stance phase early to limit amount of planter flexion her left foot goes into Stair Climbing Evaluation Evaluation Level of Assist On Independent Stairs Devices Stair Climbing None Assistive Devices Technique/Endurance Stair Climbing Ascend and Descend Direction Stair Climbing Step Over Step Technique Comments Stair Climbing Slightly early heel-off on left Comments PT-OP-K Range of Motion Start: 10/15/24 17:27 Freq: Status: Active Protocol: Document 12/13/24 14:30 DCW (Rec: 12/13/24 15:08 DCW [id number]) Ankle and Foot Goniometric Range of Motion Ankle and Foot Left Active Ankle/Foot ROM WFL No Testing Position Sitting Dorsiflexion with 10 Knee Flexed Dorsiflexion with 2 Knee Extended Plantarflexion 65 Inversion 45 Eversion 25 PT-OP-M Strength Start: 10/15/24 17:27 Freq: Status: Active Protocol: Document 12/13/24 14:30 DCW (Rec: 12/13/24 15:08 DCW [id number]) Ankle/Foot Strength Ankle and Foot Manual Muscle Testing Left Dorsiflexion (L4) 4+ Good+ Plantarflexion (S1) 3 Fair PT-OP-Q Treatments Start: 10/15/24 17:27 Freq: Status: Active Protocol: Document 01/16/25 11:30 DCW (Rec: 01/16/25 12:14 DCW [id number]) Cardio Equipment Bicycle (Upright) Duration (Minutes) 6 Resistance 7 Seat Position 6 Gym Equipment Shuttle Balance Red Details WBOS DF/PF, Staggered Therapeutic Exercises Standing Exercises Calf stretch Standing Exercise Calf stretch Name Side bilateral Equipment Used DAHLIA Reps/Minutes 45 hold ea Comments Gastroc/Soleus Manual Therapy Treatment Consent Patient gave verbal Yes consent for manual treatment Soft Tissue Mobilization Calf Body Location Achilles t. scar, plantar fascia Mobilization Type Cross-Friction,Instrument Assisted,Rolling,Strumming, Sustained Pressure Intensity/Depth Moderate Body Position Sitting Joint Mobilizations Great toe Joint L MTP, IP joint mobs Grade III Body Position Sitting PT-OP-R Modalities Start: 10/29/24 16:44 Freq: Status: Active Protocol: Document 12/25/24 14:30 NBM (Rec: 01/02/25 16:18 NBM Laptop) Hot Pack/Cold Pack Treatment Ice Massage Location L heel and ankle Patient Position Sitting Patient Tolerance Good Comments 5 min, start of session PT-OP-T Assessment and Plan Start: 10/15/24 17:27 Freq: Status: Active Protocol: Document 01/16/25 11:30 DCW (Rec: 01/16/25 12:14 DCW [id number]) Physical Therapy Assessment Impairments Impairments Edema,Gait,ROM,Strength,Tone Goals Three Impairment Pt demonstrates MMT of 3-/5 on left plantarflexion Fpc Goal (LTG) Pt to improve left Plantarflexion to at least 4-/5 in order to return to prior activities, such as bike riding. LTG Duration 02/12/25 - Improving Two Impairment Pt has difficulty descending stairs Fpc Goal (LTG) Pt to demonstrate improved left passive dorsiflexion to >15? in order to improve ability to descend stairs without restriction LTG Duration 02/12/25 - Improving One Impairment Pt does not have an appropriate home exercise program Short Term Goal (STG Pt to be independent and complaint with an appropriate ) HEP STG Duration 01/12/25 Assessment Summary Assessment Pt tolerated well, much less tenderness with activity today. Feeling fairly comfortable with HEP, will likely discharge following next visit. Physical Therapy Plan Frequency and Duration Frequency of 1-2x/week Treatment Plan of Care Start 12/13/24 Date Plan of Care End 02/12/25 Date Therapeutic Interventions Therapeutic Balance Training,Gait Training,Home Exercise Program, Interventions Joint Mobilizations,Manual Therapy,Neuromuscular Re- education,Patient/Caregiver Education,Self-Care/Home Management,Soft Tissue Mobilization,Therapeutic Activities,Therapeutic Exercises Modalities Cold Pack/Ice Massage,Hot Packs Next Visit Focus/Plan Next Note Type Discharge Summary Next Visit Plan Next: Shuttle Recovery for LE strengthening including B heel raise, and calf stretching. Manual (consider cupping) and Ice cup massage prn. POC: Stretching, ankle strengthening, balance PT-Therapy Code Fee Billing Start: 10/15/24 17:27 Freq: Status: Active Protocol: Document 01/16/25 11:30 DCW (Rec: 01/16/25 12:14 DCW [id number]) Physical Therapy Total Visit Minutes 45 PT Charge Codes - Fee KX Modifier Therapy Cap No Exclusion Modifier Therapeutic Exercise (26264) Minutes 12 PT Unit(s) per 15 1 min Manual Therapy (56713) Minutes 16 PT Unit(s) per 15 1 min Neuromuscular Re-Education (44567) Minutes 13 PT Unit(s) per 15 1 min
--- NOTE | 2025-01-21 16:58 | PT.OTN ---
Current Diagnoses Encounter for other orthopedic aftercare (01/21/25) Physical Therapy Treatment Note PT-OP-A Visit Information Start: 10/15/24 17:27 Freq: Status: Active Protocol: Document 01/21/25 16:15 DCW (Rec: 01/21/25 16:58 DCW [id number]) Out-Patient Physical Therapy Visit Information Visit Information Visit Type Discharge Summary Visit Start Time 16:15 Visit Stop Time 17:00 Visit Number 14 Number of TWIST PACKER Visits 0 Evaluation Information Evaluation Date 10/15/24 PT-OP-B Current Condition Start: 10/15/24 17:27 Freq: Status: Active Protocol: Document 10/15/24 16:15 DCW (Rec: 10/16/24 10:20 DCW [id number]) Current Condition History of Current Condition Onset Date 08/16/24 Current Complaints Left Achilles insertional repair, calcaneal Matthew excision History of Current Pt is a 63 year old female presenting eight weeks s/p Condition left Achilles insertional repair, calcaneal Matthew excision, and posterior calcaneal spur excision. Pt had initially injured her leg more than one years ago, felt a pop while hurrying up a flight of stairs. Was struggling with activity, wearing less supportive shoes , and pain during gait. Trial of PT Sept of last year, minimal benefit. Pt finally obtained an MRI in April, was found to have a tear, and underwent surgical intervention 08/16/24. Pt wore a boot for 3 weeks post-op, has had multiple follow-ups with her surgeon, weaned off of crutches, and an x-ray on September 02 reportedly shows everything healing nicely. Pt has gotten to go for long walks around town on flat surfaces, but notes she pays for it afterward. Has been wearing HOK[employer] sandals since her boot came off, due to pain with any pressure on the back of her heel. Feels there is some tenseness/tightness along her lateral ankle, notes she is more stiff and sore in the morning. Is really afraid of that first time I roll my ankle. Occasionally uses shower stool still to give her leg a break. As she has returned to walking, notes that she if finding she is getting a lot of pain in her posterior knees bilaterally. Also notes some significant hip flexor pain due to walking in the boot. Prior Treatments and Ankle MRI: IMPRESSION: 1. Longitudinal split tear of Tests the peroneal brevis. 2. Mild tendinosis of the distal Achilles tendon, without tear. Posterior calcaneal enthesophyte with enthesitis and mild subjacent marrow edema in the calcaneal tuberosity. 3. Low-grade tear and sprain of the medial and lateral ankle ligaments. per Tamy Tran M.D. on 05/07/2024 PT-OP-C Subjective Start: 10/15/24 17:27 Freq: Status: Active Protocol: Document 01/21/25 16:15 DCW (Rec: 01/21/25 16:58 DCW [id number]) OP-PT Subjective Patient Comments Patient Comments Pt quite sore after a long weekend. Pt was at a wedding , and ended up spending hours helping to set-up and walking over uneven ground. PT-OP-F Manual Assessment Start: 10/15/24 17:27 Freq: Status: Active Protocol: Document 01/21/25 16:15 DCW (Rec: 01/21/25 16:33 DCW [id number]) Manual Assessments Soft Tissue Assessment Soft Tissue Mobility Tenderness to palpation 2/4: Pain with wincing along Assessment left calcaneous, left gastroc PT-OP-G Mobility & Gait Start: 10/15/24 17:27 Freq: Status: Active Protocol: Document 01/21/25 16:15 DCW (Rec: 01/21/25 16:33 DCW [id number]) OP Gait Assessment Gait Gait Assistance Independent Required: Assistive Devices Assistive Device None Gait Deviations General Gait Pattern Antalgic Factors Limiting Gait Function Factors Limiting Decreased Strength,Limited Range of Motion,Pain Gait Function Stair Climbing Evaluation Evaluation Level of Assist On Independent Stairs Devices Stair Climbing None Assistive Devices Technique/Endurance Stair Climbing Ascend and Descend Direction Stair Climbing Step Over Step Technique Comments Stair Climbing Slightly early heel-off on left Comments PT-OP-K Range of Motion Start: 10/15/24 17:27 Freq: Status: Active Protocol: Document 01/21/25 16:15 DCW (Rec: 01/21/25 16:33 DCW [id number]) Ankle and Foot Goniometric Range of Motion Ankle and Foot Left Active Ankle/Foot ROM WFL No Testing Position Sitting Dorsiflexion with 10 Knee Flexed Dorsiflexion with 8 Knee Extended Plantarflexion 70 Inversion 48 Eversion 25 PT-OP-M Strength Start: 10/15/24 17:27 Freq: Status: Active Protocol: Document 01/21/25 16:15 DCW (Rec: 01/21/25 16:33 DCW [id number]) Ankle/Foot Strength Ankle and Foot Manual Muscle Testing Left Dorsiflexion (L4) 4+ Good+ Plantarflexion (S1) 3+ Fair+ PT-OP-Q Treatments Start: 10/15/24 17:27 Freq: Status: Active Protocol: Document 01/21/25 16:15 DCW (Rec: 01/21/25 16:58 DCW [id number]) Gym Equipment Shuttle Balance Red Details WBOS DF/PF, Staggered, Lateral weight shift Therapeutic Exercises Standing Exercises Heel Raises Standing Exercise Heel Raises DL concentric> DL eccentric Name Side bilateral Equipment Used handrail BOSU Lunge Standing Exercise BOSU Lunge Name Side bilateral Reps/Minutes x10 ea Manual Therapy Treatment Consent Patient gave verbal Yes consent for manual treatment Soft Tissue Mobilization Calf Body Location Achilles t. scar, plantar fascia Mobilization Type Cross-Friction,Instrument Assisted,Rolling,Strumming, Sustained Pressure Intensity/Depth Moderate Body Position Sitting Neuro Re-Education Treatment Balance Activities BOSU Details DL Balance Surface Blue BOSU Equipment rail prn PT-OP-R Modalities Start: 10/29/24 16:44 Freq: Status: Active Protocol: Document 12/25/24 14:30 NBM (Rec: 01/02/25 16:18 NBM Laptop) Hot Pack/Cold Pack Treatment Ice Massage Location L heel and ankle Patient Position Sitting Patient Tolerance Good Comments 5 min, start of session PT-OP-T Assessment and Plan Start: 10/15/24 17:27 Freq: Status: Active Protocol: Document 01/21/25 16:15 DCW (Rec: 01/21/25 16:58 DCW [id number]) Physical Therapy Assessment Goals Three Impairment Pt demonstrates MMT of 3-/5 on left plantarflexion Group Home Goal (LTG) Pt to improve left Plantarflexion to at least 4-/5 in order to return to prior activities, such as bike riding. LTG Duration 02/12/25 - Improving Two Impairment Pt has difficulty descending stairs Group Home Goal (LTG) Pt to demonstrate improved left passive dorsiflexion to >15? in order to improve ability to descend stairs without restriction LTG Duration 02/12/25 - Improving One Impairment Pt does not have an appropriate home exercise program Short Term Goal (STG Pt to be independent and complaint with an appropriate ) HEP STG Duration 01/12/25 Progress Towards Goals Progress Towards Progressing Toward Goals Goals Assessment Summary Assessment Pt has progressed well overall, feels comfortable with HEP and independent progression. Agreeable to discharge from skilled therapy at this time. ROM and tenderness to palpation both significantly improved. Physical Therapy Plan Frequency and Duration Frequency of 1-2x/week Treatment Plan of Care Start 12/13/24 Date Plan of Care End 02/12/25 Date Therapeutic Interventions Therapeutic Balance Training,Gait Training,Home Exercise Program, Interventions Joint Mobilizations,Manual Therapy,Neuromuscular Re- education,Patient/Caregiver Education,Self-Care/Home Management,Soft Tissue Mobilization,Therapeutic Activities,Therapeutic Exercises Modalities Cold Pack/Ice Massage,Hot Packs Discharge Physical Therapy Discharge Comments Discharge to independent HEP Next Visit Focus/Plan Next Note Type Discharge Summary
== END 2025-01-23 09:57 | disposition home or self-care (01) ==
LOC: PHYS 16:15
PROVIDERS: Family Provider Physician Assistant; PCP Physician Assistant; Referring Provider Physician Assistant Medical; Visit Provider Physician Assistant Medical
DX: Z47.89 Encounter for other orthopedic aftercare (principal)
CPT/HCPCS: 97110; 97112; 97140; 97161